=== PATIENT | female | born 1985 | race African-American/Black ===

== ENCOUNTER 2017-03-14 03:12 | Emergency (ER) | payer SELFPAY ==
[2017-03-14] MEDS ORDERED: IPRATROPIUM/ALBUTEROL 0.5-2.5 MG/3 ML AMPUL NEB ONE (03:35)
[2017-03-14] MEDS ORDERED: PREDNISONE 20 MG TABLET PO ONE (03:35)
--- NOTE | 2017-03-14 04:28 | RADIOLOGY REPORT (SQ) ---
EXAM DESCRIPTION: CHEST PA/LAT CLINICAL HISTORY: 31 years, Female, sob COMPARISON: 05/06/2015. NUMBER OF VIEWS: 2 FINDINGS: Adequate lung volumes, clear parenchyma, normal cardiac silhouette, and intact bony thorax. IMPRESSION: Normal chest radiographs. 2011 [employer]- All Rights Reserved
[2017-03-14] MEDS ORDERED: ALBUTEROL SULFATE HFA (90 MCG/PUFF) 8 GM MDI (1 MDI/ER DISP) IH ONE (04:39)
--- NOTE | 2017-03-14 04:42 | ER Document Report ---
ED General - General Chief Complaint: Shortness Of Breath Stated Complaint: HARD TIME BREATHING Time Seen by Provider: 03/14/17 03:34 TRAVEL OUTSIDE OF THE [place] IN LAST 30 DAYS: No - HPI Patient complains to provider of: Shortness of breath Notes: Patient coming in for shortness of breath. Patient states ongoing for the last few days. Patient states she is a smoker and continues to smoke. Denies any recent travel denies any fever chills nausea vomiting diarrhea. Patient states she is currently not this time is not taking any control. Patient is resting comfortably upon my evaluation. - Related Data Allergies/Adverse Reactions: No Known Allergies Allergy (Verified 01/03/16 11:56) Past Medical History - Social History Smoking Status: Current Every Day Smoker Chew tobacco use (# tins/day): No Frequency of alcohol use: None Drug Abuse: None Family History: DM, Hyperlipidemia, Hypertension, Malignancy Patient has suicidal ideation: No Patient has homicidal ideation: No Pulmonary Medical History: Reports: Hx Asthma Renal/ Medical History: Reports: Hx Ovarian Cysts. Denies: Hx Peritoneal Dialysis GI Medical History: Reports: Hx Gastroesophageal Reflux Disease - Immunizations Immunizations up to date: Yes Hx Diphtheria, Pertussis, Tetanus Vaccination: Yes Review of Systems - Review of Systems Constitutional: No symptoms reported EENT: No symptoms reported Cardiovascular: No symptoms reported Respiratory: Short of breath Gastrointestinal: No symptoms reported Genitourinary: No symptoms reported Female Genitourinary: No symptoms reported Musculoskeletal: No symptoms reported Skin: No symptoms reported Hematologic/Lymphatic: No symptoms reported Neurological/Psychological: No symptoms reported -: Yes All other systems reviewed and negative Physical Exam - Vital signs Vitals: Temp Pulse Resp BP Pulse Ox 98.2 F 86 26 H 137/77 H 96 03/14/17 03:15 03/14/17 03:15 03/14/17 03:15 03/14/17 03:15 03/14/17 03:15 Interpretation: Normal - General General appearance: Appears well, Alert - HEENT Head: Normocephalic, Atraumatic Eyes: Normal Pupils: PERRL - Respiratory Respiratory status: No respiratory distress Chest status: Nontender Breath sounds: Rhonchi, Wheezing Chest palpation: Normal - Cardiovascular Rhythm: Regular Heart sounds: Normal auscultation Murmur: No - Abdominal Inspection: Normal Distension: No distension Bowel sounds: Normal Tenderness: Nontender Organomegaly: No organomegaly - Back Back: Normal, Nontender - Extremities General upper extremity: Normal inspection, Nontender, Normal color, Normal ROM , Normal temperature General lower extremity: Normal inspection, Nontender, Normal color, Normal ROM , Normal temperature, Normal weight bearing. No: Elizabeth's sign - Neurological Neuro grossly intact: Yes Cognition: Normal Orientation: AAOx4 Voss Coma Scale Eye Opening: Spontaneous Voss Coma Scale Verbal: Oriented Davon Coma Scale Motor: Obeys Commands Davon Coma Scale Total: 15 Speech: Normal Motor strength normal: LUE, RUE, LLE, RLE Sensory: Normal - Psychological Associated symptoms: Normal affect, Normal mood - Skin Skin Temperature: Warm Skin Moisture: Dry Skin Color: Normal Course - Re-evaluation Re-evalutation: 03/14/17 05:22 Examination consistent with bronchitis. Patient symptoms improved after rhonchi dilators. Patient will be discharged on follow-up primary care physician. Will discharge patient home with albuterol inhaler and prednisone for the next few days. Chest x-ray negative - Vital Signs Vital signs: Temp Pulse Resp BP Pulse Ox 98.2 F 86 20 133/88 H 96 03/14/17 03:15 03/14/17 03:15 03/14/17 03:44 03/14/17 03:44 03/14/17 04:00 Discharge - Discharge Clinical Impression: Bronchitis Condition: Good Disposition: HOME, SELF-CARE Instructions: Bronchitis With Bronchospasm (Wheezing) ([facility]) Additional Instructions: Your chest x-ray today does not show any signs of pneumonia. More likely have underlying bronchitis or inflammation of the airways. Please stop smoking take medications as prescribed return to the ER symptoms worsen. Please use the inhaler that we gave you here in ER 2 puffs every 4 hours for the next 5 days then as needed for shortness of breath Prescriptions: Prednisone [Deltasone 20 mg Tablet] 3 tab PO DAILY 5 Days tablet Forms: Smoking Cessation Education
[2017-03-14 04:54] VITALS: BP 111/75
== END 2017-03-14 04:44 | disposition home or self-care (01) ==
LOC: ER 03:12
DX: J45.909 Unspecified asthma, uncomplicated (principal); R06.02 Shortness of breath; F17.200 Nicotine dependence, unspecified, uncomplicated
CPT/HCPCS: 94640; 99285; 71020; J7512; J3490; J7620

== ENCOUNTER 2017-04-20 20:21 | Emergency (ER) | payer OTHER ==
--- NOTE | 2017-04-20 20:55 | ER Document Report ---
ED Medical Screen (RME) - General Chief Complaint: Chest Pain Stated Complaint: CHEST PAINS Time Seen by Provider: 04/20/17 20:54 Notes: Patient states she has right-sided chest pain for approximately 2 weeks. She states she may have injured it at work moving an object. TRAVEL OUTSIDE OF THE [place] IN LAST 30 DAYS: No - Related Data Allergies/Adverse Reactions: No Known Allergies Allergy (Verified 04/20/17 20:37) Home Medications: Current Home Medications No Home Medications 04/20/17 [History] Past Medical History - Social History Family history: Arthritis, CVA, DM, Hyperlipidemia, Hypertension, Malignancy, Other - Sleep apnea Pulmonary Medical History: Reports: Hx Asthma Renal/ Medical History: Reports: Hx Ovarian Cysts. Denies: Hx Peritoneal Dialysis GI Medical History: Reports: Hx Gastroesophageal Reflux Disease - Immunizations Immunizations up to date: Yes Hx Diphtheria, Pertussis, Tetanus Vaccination: Yes Physical Exam - Vital signs Vitals: Temp Pulse Resp BP Pulse Ox 98.5 F 76 14 121/69 97 04/20/17 20:43 04/20/17 20:43 04/20/17 20:43 04/20/17 20:43 04/20/17 20:43 Course - Vital Signs Vital signs: Temp Pulse Resp BP Pulse Ox 98.5 F 76 14 121/69 97 04/20/17 20:43 04/20/17 20:43 04/20/17 20:43 04/20/17 20:43 04/20/17 20:43
[2017-04-20 21:28] LABS: ABSOLUTE BASOPHILS # (AUTO) 0.1 10^3/uL (0.0-0.2); ABSOLUTE EOSINOPHILS # (AUTO) 0.3 10^3/uL (0.0-0.6); ABSOLUTE LYMPHOCYTES (AUTO) 4.2 10^3/uL (0.5-4.7); ABSOLUTE MONOCYTES (AUTO) 0.9 10^3/uL (0.1-1.4); ABSOLUTE NEUT (AUTO) 3.9 10^3/uL (1.7-8.2); BASOPHILS % (AUTO) 1.2 % (0-2); EOSINOPHILS % (AUTO) 2.9 % (0-6); HEMATOCRIT 39.9 % (36.0-47.0); HEMOGLOBIN 14.2 g/dL (12.0-15.5); LYMPHOCYTES % (AUTO) 44.6 % (13-45); MEAN CORPUSCULAR HEMOGLOBIN 29.1 pg (27.0-33.4); MEAN CORPUSCULAR HGB CONC 35.6 g/dL (32.0-36.0); MEAN CORPUSCULAR VOLUME 82 fl (80-97); MONOCYTES % (AUTO) 9.2 % (3-13); PLATELET COUNT 258 10^3/uL (150-450); RED BLOOD COUNT 4.89 10^6/uL (3.72-5.28); RED CELL DISTRIBUTION WIDTH 13.8 % (11.5-14.0); SEGMENTED NEUTROPHILS % (AUTO) 42.1 % (42-78); TOTAL CELLS COUNTED % (AUTO) 100 %; WHITE BLOOD COUNT 9.3 10^3/uL (4.0-10.5)
[2017-04-20 21:31] LABS: APPEARANCE,URINE SLIGHTLY-CLOUDY; BILIRUBIN,URINE NEGATIVE (NEGATIVE); COLOR,URINE YELLOW; GLUCOSE, URINE NEGATIVE (NEGATIVE); KETONES,URINE NEGATIVE (NEGATIVE); LEUKOCYTE ESTERASE,URINE NEGATIVE (NEGATIVE); NITRITE,URINE NEGATIVE (NEGATIVE); PROTEIN,URINE NEGATIVE (NEGATIVE); URINE SPECIFIC GRAVITY 1.032
[2017-04-20 21:44] LABS: ALANINE AMINOTRANSFERASE 34 U/L (9-52); ALBUMIN 4.2 g/dL (3.5-5.0); ALKALINE PHOSPHATASE 82 U/L (38-126); ANION GAP 9 (5-19); ASPARTATE AMINO TRANSFERASE 22 U/L (14-36); BILIRUBIN,DIRECT 0.2 mg/dL (0.0-0.4); BILIRUBIN,TOTAL 0.2 mg/dL (0.2-1.3); BLOOD UREA NITROGEN 15 mg/dL (7-20); CALCIUM 9.9 mg/dL (8.4-10.2); CARBON DIOXIDE 29 mmol/L (22-30); CHLORIDE 106 mmol/L (98-107); GLUCOSE 89 mg/dL (75-110); SODIUM 143.7 mmol/L (137-145); TOTAL PROTEIN 6.9 g/dL (6.3-8.2)
--- NOTE | 2017-04-20 22:33 | ER Document Report ---
ED General - General Chief Complaint: Chest Pain Stated Complaint: CHEST PAINS Time Seen by Provider: 04/20/17 20:54 Notes: Patient is a 31-year-old female presents with complaint of chest pain. She has been there for a few days. She says she first noticed it at work. She says that she does a lot of pulling and pressing at work. She notices that when she lifts herself up to get out of bed that she feels a straining over the muscles over the right upper part of her chest. No pain with breathing. No shortness of breath. No fevers. No history of heart problems. No other complaints at this time. Leg pain or leg swelling. TRAVEL OUTSIDE OF THE [place] IN LAST 30 DAYS: No - Related Data Allergies/Adverse Reactions: No Known Allergies Allergy (Verified 04/20/17 20:37) Home Medications: Current Home Medications No Home Medications 04/20/17 [History] Past Medical History - Social History Smoking Status: Current Every Day Smoker Chew tobacco use (# tins/day): No Frequency of alcohol use: None Drug Abuse: Marijuana Family History: DM, Hyperlipidemia, Hypertension, Malignancy Patient has suicidal ideation: No Patient has homicidal ideation: No Pulmonary Medical History: Reports: Hx Asthma, Hx Bronchitis Renal/ Medical History: Reports: Hx Ovarian Cysts. Denies: Hx Peritoneal Dialysis GI Medical History: Reports: Hx Gastroesophageal Reflux Disease - Immunizations Immunizations up to date: Yes Hx Diphtheria, Pertussis, Tetanus Vaccination: Yes Review of Systems - Review of Systems Notes: My Normal Review Basic REVIEW OF SYSTEMS: CONSTITUTIONAL : Denies fever, chills, or sweats. Denies recent illness. EENT: Denies eye, ear, throat, or mouth pain or symptoms. Denies nasal or sinus congestion. CARDIOVASCULAR: Pain over right upper chest. RESPIRATORY: Denies cough, cold, or chest congestion. Denies shortness of breath, difficulty breathing, or wheezing. GASTROINTESTINAL: Denies abdominal pain. Denies nausea, vomiting, or diarrhea. Denies constipation. Last BM: MUSCULOSKELETAL: Denies neck or back pain or joint pain or swelling. SKIN: Denies rash or skin lesions. NEUROLOGICAL: Denies altered mental status or loss of consciousness. Denies headache. Denies weakness or paralysis or loss of use of either side. Denies problems with gait or speech. Denies sensory or motor loss. ALL OTHER SYSTEMS REVIEWED AND NEGATIVE. Physical Exam - Vital signs Vitals: Temp Pulse Resp BP Pulse Ox 98.5 F 76 14 121/69 97 04/20/17 20:43 04/20/17 20:43 04/20/17 20:43 04/20/17 20:43 04/20/17 20:43 - Notes Notes: General Appearance: Well nourished, alert, cooperative, no acute distress, no obvious discomfort. Well-appearing. Vitals: reviewed, See vital signs table. Chest wall: Some pain to palpation over the right upper chest. Pain is reproducible when she tries to sit up off the bed or push herself off the bed. Lungs: No wheezing, No rales, No rhonci, No accessory muscle use, good air exchange bilaterally. Heart: Normal rate, Regular rythm, No murmur, no rub Abdomen: Normal BS, soft, No rigidity, No abdominal tenderness, No guarding, no rebound, Extremities: good pulses in all extremities, no swelling in the extremities, no edema. Skin: warm, dry, appropriate color, no rash Neuro: speech clear, oriented x 3, normal affect, responds appropriately to questions. Course - Re-evaluation Re-evalutation: 04/21/17 06:12 Cardiac enzymes were ordered in triage. They are negative. On exam patient's pain seems very muscular skeletal. It seems reproducible palpation and also with movement or pushing against the bed. I feel she is safe to be discharged home. I strongly encouraged her return to ER if she has worsening pain, difficulty breathing, fevers, or feels unwell. Patient agrees with plan will be discharged home. Dictation of this chart was performed using voice recognition software; therefore, there may be some unintended grammatical errors. - Vital Signs Vital signs: Temp Pulse Resp BP Pulse Ox 98.6 F 62 16 126/79 H 98 04/21/17 00:02 04/21/17 00:02 04/21/17 00:02 04/21/17 00:02 04/21/17 00:02 - Laboratory Result Diagrams: 04/20/17 21:00 04/20/17 21:00 Laboratory results interpreted by me: 04/20/17 21:00 Urine Urobilinogen 2.0 H - EKG Interpretation by Me Additional EKG results interpreted by me: 04/20/17 22:32 EKG is reviewed and interpreted by me. EKG shows normal sinus rhythm with rate of [address] segment elevation or depression. No ischemic T-wave inversions. Pure interval, QRS duration, QTc intervals are within normal range. Old EKG for comparison is from May 19, 2013. Discharge - Discharge Clinical Impression: Chest pain Qualifiers: Chest pain type: unspecified Qualified Code(s): R07.9 - Chest pain, unspecified Condition: Good Disposition: HOME, SELF-CARE Additional Instructions: Your blood work and chest xray are normal. Your EKG is normal. I suspect your chest pain is related to a muscle strain in your chest. Take Tylenol or Ibuprofen for pain. Please return to the ER immediately if you develop worsening pain, fevers, or difficulty breathing. Forms: Return to Work Referrals: VIRGIE MILTON MD [Primary Care Provider] - 04/21/17
[2017-04-21 00:11] VITALS: BP 126/79
--- NOTE | 2017-04-21 00:19 | RADIOLOGY REPORT (SQ) ---
EXAM DESCRIPTION: CHEST SINGLE VIEW CLINICAL HISTORY: 31 years, Female, chest pain COMPARISON: 03/14/2017. LIMITATIONS: None. FINDINGS: Normal lung volume, clear parenchyma, normal cardiac silhouette, and intact bony thorax. IMPRESSION: No acute cardiopulmonary findings. 2011 [employer]- All Rights Reserved
--- NOTE | 2017-04-21 09:46 | EKG REPORT ---
SEVERITY:- BORDERLINE ECG - SINUS RHYTHM PROBABLE LEFT ATRIAL ABNORMALITY : Confirmed by: Ann Marie Tinajero 21-Apr-2017 09:45:49
== END 2017-04-21 00:03 | disposition home or self-care (01) ==
LOC: ER 20:21
DX: R07.9 Chest pain, unspecified (principal); J45.909 Unspecified asthma, uncomplicated; F12.10 Cannabis abuse, uncomplicated; F17.200 Nicotine dependence, unspecified, uncomplicated
CPT/HCPCS: 36415; 71045; 80053; 81001; 81025; 84484; 85025; 93005; 93010; 99285

== ENCOUNTER 2017-04-26 10:25 | Emergency (ER) | payer SELFPAY ==
--- NOTE | 2017-04-26 10:56 | ER Document Report ---
HPI - HPI Patient complains to provider of: Cough Onset: Other - Pain Level: 4 Context: 31-year-old smoker female started with a cough and saw [facility] on and was started on Tamiflu and prednisone. She does have a Ventolin inhaler that she has not been using. She is concerned and wants to make sure she does not have pneumonia. No fever today. No chest pain or shortness of breath. She also wants to know what can she take for pain since she is taking prednisone. Associated Symptoms: None Exacerbated by: Denies Relieved by: Denies Similar symptoms previously: Yes Recently seen / treated by doctor: Yes - ROS ROS below otherwise negative: Yes Systems Reviewed and Negative: Yes All other systems reviewed and negative - REPRODUCTIVE Reproductive: DENIES: : Past Medical History - General Information source: Patient - Social History Smoking Status: Current Every Day Smoker Frequency of alcohol use: None Drug Abuse: None Lives with: Spouse/Significant other Family History: DM, Hyperlipidemia, Hypertension, Malignancy Pulmonary Medical History: Reports: Hx Asthma, Hx Bronchitis Renal/ Medical History: Reports: Hx Ovarian Cysts. Denies: Hx Peritoneal Dialysis GI Medical History: Reports: Hx Gastroesophageal Reflux Disease Surgical Hx: Negative - Immunizations Immunizations up to date: Yes Hx Diphtheria, Pertussis, Tetanus Vaccination: Yes Vertical Provider Document - CONSTITUTIONAL Agree With Documented VS: Yes Exam Limitations: No Limitations General Appearance: No Apparent Distress - INFECTION CONTROL TRAVEL OUTSIDE OF THE [place] IN LAST 30 DAYS: No - HEENT HEENT: Pharyngeal Erythema. negative: Conjuctival Injection, Tympanic Membrane Red - NECK Neck: Supple. negative: Lymphadenopathy-Left, Lymphadenopathy-Right - RESPIRATORY Respiratory: Breath Sounds Normal, No Respiratory Distress O2 Sat by Pulse Oximetry: 95 - CARDIOVASCULAR Cardiovascular: Regular Rate, Regular Rhythm - MUSCULOSKELETAL/EXTREMETIES Musculoskeletal/Extremeties: MAEW - NEURO Level of Consciousness: Awake, Alert - DERM Integumentary: Warm, Dry Course - Vital Signs Vital signs: Temp Pulse Resp BP Pulse Ox 98.3 F 77 16 114/78 95 04/26/17 10:38 04/26/17 10:38 04/26/17 10:38 04/26/17 10:38 04/26/17 10:38 Discharge - Discharge Clinical Impression: Cough Condition: Good Disposition: HOME, SELF-CARE Instructions: Influenza ([facility]) [id number] Additional Instructions: use your inhaler (ventolin) for the cough, and help get the muous out, 2 puffs every 3 hours may take tylenol for the pain continue the Tamiflu and prednisone. Return to the emergency room if worse Referrals: LATASHA LOPEZ PA-C [Primary Care Provider] - Follow up as needed
[2017-04-26 12:27] VITALS: BP 114/65
== END 2017-04-26 12:30 | disposition home or self-care (01) ==
LOC: ER 10:25
DX: R05 Cough (principal); J45.909 Unspecified asthma, uncomplicated; F17.200 Nicotine dependence, unspecified, uncomplicated
CPT/HCPCS: 99283

== ENCOUNTER 2017-04-29 14:22 | Emergency (ER) | payer SELFPAY ==
[2017-04-29 14:33] VITALS: BP 118/73
== END 2017-04-29 14:50 | disposition left against medical advice (07) ==
LOC: ER 14:22
DX: Z53.21 Procedure and treatment not carried out due to patient leaving prior to being seen by health care provider (principal)

== ENCOUNTER 2017-04-30 01:27 | Emergency (ER) | payer SELFPAY ==
--- NOTE | 2017-04-30 04:33 | RADIOLOGY REPORT (SQ) ---
EXAM DESCRIPTION: CHEST PA/LAT CLINICAL HISTORY: cough COMPARISON: 04/20/2017 FINDINGS: Frontal and lateral views of the chest. The cardiomediastinal silhouette has normal size and contour. No consolidation, pneumothorax, or pleural effusion. No displaced rib fractures identified. Upper abdominal soft tissues are unremarkable. IMPRESSION: 1. No acute pulmonary process identified.
--- NOTE | 2017-04-30 05:33 | ER Document Report ---
ED General - General Chief Complaint: Breathing Difficulty Stated Complaint: TROUBLE BREATHING Time Seen by Provider: 04/30/17 04:01 Notes: Patient is a 31-year-old female who presents with complaint she has a sore throat had a cough. Patient says about a week ago she was seen by her primary care doctor. She was tested for flu but the flu was negative. She says that despite her chest pain negative she was placed on Tamiflu. She says she then went back she still had a cough. She says she had a chest x-ray performed and she was told that the thought they might see a small something in her lungs that could be developing pneumonia and therefore she was placed on a Z-Justo. Patient says she still has a scratchy throat and feels as if she is still sick and not completely better and therefore is come to ER. No fevers in the last 48 hours. No vomiting. No wheezing. No other complaints at this time. TRAVEL OUTSIDE OF THE [place] IN LAST 30 DAYS: No - Related Data Allergies/Adverse Reactions: No Known Allergies Allergy (Verified 04/29/17 14:23) Past Medical History - Social History Smoking Status: Never Smoker Frequency of alcohol use: None Drug Abuse: None Family History: DM, Hyperlipidemia, Hypertension, Malignancy Patient has suicidal ideation: No Patient has homicidal ideation: No Pulmonary Medical History: Reports: Hx Asthma, Hx Bronchitis, Hx Pneumonia Renal/ Medical History: Reports: Hx Ovarian Cysts. Denies: Hx Peritoneal Dialysis GI Medical History: Reports: Hx Gastroesophageal Reflux Disease - Immunizations Immunizations up to date: Yes Hx Diphtheria, Pertussis, Tetanus Vaccination: Yes Review of Systems - Review of Systems Notes: My Normal Review Basic REVIEW OF SYSTEMS: CONSTITUTIONAL : Recent URI type symptoms. EENT: Sore throat. Left ear pain. CARDIOVASCULAR: Denies chest pain. RESPIRATORY: Cough GASTROINTESTINAL: Denies abdominal pain. Denies nausea, vomiting, or diarrhea. Denies constipation. Last BM: MUSCULOSKELETAL: Denies neck or back pain or joint pain or swelling. SKIN: Denies rash or skin lesions. NEUROLOGICAL: Denies altered mental status or loss of consciousness. Denies headache. Denies weakness or paralysis or loss of use of either side. Denies problems with gait or speech. Denies sensory or motor loss. ALL OTHER SYSTEMS REVIEWED AND NEGATIVE. Physical Exam - Vital signs Vitals: Temp Pulse Resp BP Pulse Ox 98.1 F 66 20 120/67 98 04/30/17 01:43 04/30/17 01:43 04/30/17 01:43 04/30/17 01:43 04/30/17 01:43 - Notes Notes: General Appearance: Well nourished, alert, cooperative, no acute distress, no obvious discomfort. Well-appearing. Vitals: reviewed, See vital signs table. Head: no swelling or tenderness to the head Eyes: PERRL, EOMI, Conjuctiva clear Mouth: No decreasd moisture Throat: No tonsillar inflammation, No airway obstruction, No lymphadenopathy Ears: Normal-appearing tympanic membranes bilaterally. Neck: Supple, no neck tenderness, No thyromegaly Lungs: No wheezing, No rales, No rhonci, No accessory muscle use, good air exchange bilaterally. Heart: Normal rate, Regular rythm, No murmur, no rub Extremities: good pulses in all extremities,, no edema. Skin: warm, dry, appropriate color, no rash Neuro: speech clear, oriented x 3, normal affect, responds appropriately to questions. Course - Re-evaluation Re-evalutation: 04/30/17 07:05 Patient looks very well. I explained to her about eustachian tube dysfunction of the sometimes can lead to pain in pressure behind the ear association with sore throat. Informed that she most likely has a viral illness. Chest x-ray here was negative. She now has 2 doses of azithromycin left. I informed her that there is possibility that she may have had a early pneumonia now that has cleared on x-ray. I told her that do not have access to previous chest x-ray sure cannot tell her for sure. Informed her she should just go ahead and finish out her course of antibiotic. Encouraged her return to ER if she has worsening of her symptoms, difficulty breathing, high fevers, or feels unwell. Patient agrees with plan and will be discharged home. Dictation of this chart was performed using voice recognition software; therefore, there may be some unintended grammatical errors. - Vital Signs Vital signs: Temp Pulse Resp BP Pulse Ox 98.1 F 73 20 123/76 99 04/30/17 05:45 04/30/17 05:45 04/30/17 05:45 04/30/17 05:45 04/30/17 05:45 Discharge - Discharge Clinical Impression: URI (upper respiratory infection) Qualifiers: URI type: unspecified URI Qualified Code(s): J06.9 - Acute upper respiratory infection, unspecified Condition: Good Disposition: HOME, SELF-CARE Additional Instructions: Please return to the ER immediately if you develop fevers, difficulty breathing , or feel that you are worsening. Please follow up with your doctor early next week for reevaluation. Referrals: VIRGIE MILTON MD [Primary Care Provider] - Follow up in 3-5 days
[2017-04-30 05:46] VITALS: BP 123/76
== END 2017-04-30 05:39 | disposition home or self-care (01) ==
LOC: ER 01:27
DX: J06.9 Acute upper respiratory infection, unspecified (principal); R06.02 Shortness of breath; J02.9 Acute pharyngitis, unspecified; R05 Cough
CPT/HCPCS: 71046; 99285

== ENCOUNTER 2017-05-03 06:18 | Emergency (ER) | payer SELFPAY ==
[2017-05-03] MEDS ORDERED: LIDOCAINE 5% (700 MG) TRANSDERMAL ADH..PATCH TP ONE (07:23)
--- NOTE | 2017-05-03 07:23 | ER Document Report ---
HPI - HPI Pain Level: 4 Notes: Patient is a 31-year-old female who presents to the ED complaining of continued chest wall pain and feeling constipated over the last week. Patient states that she has been evaluated here for the chest pain recently, and that her pain has been ongoing over the last 2 weeks with some improvement on occasion. She had a negative work up at that time. The pain does not radiate and is not worsened with ambulation or exercise otherwise. Patient has not been doing anything for her discomfort. Patient does a lot of lifting pulling and pushing when she is working. Patient states that upper extremity movements make the pain worse. She denies any significant cardiac history. She denies any prolonged immobilization, recent trauma/surgery, cancer, hormone replacement, previous DVT/PE. Patient does admit to smoking but denies any IV drug use. She denies any drug allergies. Patient states that her bowels have been small and hard lately with the last bowel movement less than 12 hours ago. Patient states that she is still passing gas. Patient is not on any stool softeners. Patient is still eating and drinking without any difficulties. She is urinating normally and having normal bowel movements. Denies any headache, fever, neck pain, URI, sore throat, palpitations, syncope, cough, shortness of breath, wheeze, dyspnea, abdominal pain, nausea/vomiting/diarrhea, urinary retention, dysuria, hematuria, loss of control of bowel or bladder, numbness/ tingling, saddle anesthesia, muscle paralysis/weakness, or rash. - ROS Systems Reviewed and Negative: Yes All other systems reviewed and negative - REPRODUCTIVE Reproductive: DENIES: : - DERM Skin Color: Normal, [place] Past Medical History - Social History Smoking Status: Current Every Day Smoker Chew tobacco use (# tins/day): No Frequency of alcohol use: None Drug Abuse: None Family History: DM, Hyperlipidemia, Hypertension, Malignancy Patient has suicidal ideation: No Patient has homicidal ideation: No Pulmonary Medical History: Reports: Hx Asthma, Hx Bronchitis, Hx Pneumonia Renal/ Medical History: Reports: Hx Ovarian Cysts. Denies: Hx Peritoneal Dialysis GI Medical History: Reports: Hx Gastroesophageal Reflux Disease - Immunizations Immunizations up to date: Yes Hx Diphtheria, Pertussis, Tetanus Vaccination: Yes Vertical Provider Document - CONSTITUTIONAL Agree With Documented VS: Yes Notes: PHYSICAL EXAMINATION: GENERAL: Well-appearing, well-nourished and in no acute distress. HEAD: Atraumatic, normocephalic. EYES: Pupils equal round and reactive to light, extraocular movements intact, sclera anicteric, conjunctiva are normal. ENT: Nares patent and without discharge. oropharynx clear without exudates. No tonsilar hypertrophy or erythema. Moist mucous membranes. NECK: Normal range of motion, supple without lymphadenopathy Chest: equal rise/fall. + moderate tenderness to the left sternal border, correlates with pain described. No flail chest, ecchymosis, step-offs, or erythema. LUNGS: Breath sounds clear to auscultation bilaterally and equal. No wheezes rales or rhonchi. HEART: Regular rate and rhythm without murmurs, rubs, gallops. ABDOMEN: Soft, nontender, nondistended abdomen. No guarding, no rebound. No masses appreciated. Normal bowel sounds present. No CVA tenderness bilaterally. Musculoskeletal: FROM to passive/active. Strength 5+/5. Elizabeth neg. Calves soft without swelling/erythema. Extremities: No cyanosis, clubbing, or edema b/l. Peripheral pulses 2+. Capillary refill less than 3 seconds. NEUROLOGICAL: Cranial nerves grossly intact. Normal speech, normal gait. Normal sensory, motor exams PSYCH: Normal mood, normal affect. SKIN: Warm, Dry, normal turgor, no rashes or lesions noted. - INFECTION CONTROL TRAVEL OUTSIDE OF THE [place] IN LAST 30 DAYS: No - RESPIRATORY O2 Sat by Pulse Oximetry: 97 Course - Re-evaluation Re-evalutation: 05/03/17 09:05 Patient is an afebrile, well-hydrated, 31-year-old female who presents to the ED with chest wall pain, suspect benign as well as suspect constipation. Vitals are stable. PE is otherwise unremarkable aside from reproducible chest wall pain. EKG and chest x-ray are unremarkable for any acute pathology. No other labs or imaging warranted at this time based on H&P. Patient is still passing gas and having bowel movements, but notes that she has been more constipated. Patient is not having any abdominal pain and no melena/ hematochezia. Low suspicion for any ACS, PE, pneumothorax, pericarditis, dissection, respiratory compromise, severe dehydration, sepsis, meningitis, acute abdomen, or other systemic emergent condition at this time. Patient is aware that her condition can change from initial presentation and she needs to monitor symptoms closely and seek medical attention for any acute changes. Lidoderm patch was applied today and improved her pain felt the left for. I will send her home with a prescription for naproxen, lidoderm patch, as well as mag citrate. Recommend conservative measures for symptoms. Recheck with your PCM in 3-5 days. Return to the ED with any worsening/concerning symptoms otherwise as reviewed in discharge. Patient is in agreement. - Vital Signs Vital signs: Temp Pulse Resp BP Pulse Ox 98.2 F 82 16 124/80 97 05/03/17 06:36 05/03/17 06:36 05/03/17 06:36 05/03/17 06:36 05/03/17 06:36 Discharge - Discharge Clinical Impression: Chest wall pain Constipation Qualifiers: Constipation type: unspecified constipation type Qualified Code(s): K59.00 - Constipation, unspecified Condition: Stable Disposition: HOME, SELF-CARE Instructions: Chest Wall Pain ([facility]), Constipation ([facility]) Additional Instructions: Rest, Ice, Compression, Elevation Stool softener daily- maintain adequate water/fiber intake. Tylenol/ibuprofen as needed Light stretches daily Strength exercises as able Moist heat and massage may help F/u with your PCP in 3-5 days for a recheck Consider consult(s) with Orthopedics/physical therapy/Gastroenterology for ongoing/worsening symptoms Return to the ED with any worsening symptoms and/or development of fever, headache, chest pain, palpitations, syncope, shortness of breath, trouble breathing, abdominal pain, n/v/d, muscle weakness/paralysis, numbness/tingling, swelling, redness, or other worsening symptoms that are concerning to you. Prescriptions: Lidocaine [Lidoderm] 1 each TP DAILY #30 adh..patch Magnesium Citrate [Citrate of Magnesia 296 ml Bottle] 296 ml PO ONCE PRN #1 bottle PRN Reason: Naproxen 500 mg PO BID PRN #30 tablet PRN Reason: Forms: Smoking Cessation Education Referrals: BILL MERRITT MD [ACTIVE STAFF] - Follow up as needed [facility] [Provider Group] - Follow up as needed
--- NOTE | 2017-05-03 07:46 | RADIOLOGY REPORT (SQ) ---
EXAM DESCRIPTION: CHEST PA/LAT COMPLETED DATE/TIME: 05/03/2017 7:37 am REASON FOR STUDY: chest wall pain COMPARISON: 04/30/2017 EXAM PARAMETERS: NUMBER OF VIEWS: two views TECHNIQUE: Digital Frontal and Lateral radiographic views of the chest acquired. RADIATION DOSE: NA LIMITATIONS: none FINDINGS: LUNGS AND PLEURA: No opacities, masses or pneumothorax. No pleural effusion. MEDIASTINUM AND HILAR STRUCTURES: No masses or contour abnormalities. HEART AND VASCULAR STRUCTURES: Heart normal size. No evidence for failure. BONES: No acute findings. HARDWARE: None in the chest. OTHER: No other significant finding. IMPRESSION: NO SIGNIFICANT RADIOGRAPHIC FINDING IN THE CHEST. TECHNICAL DOCUMENTATION: JOB ID: [id number] 2010 [employer]- All Rights Reserved
[2017-05-03 09:12] VITALS: BP 109/65
--- NOTE | 2017-05-03 11:55 | EKG REPORT ---
SEVERITY:- NORMAL ECG - SINUS RHYTHM : Confirmed by: Catrachita Bailey MD 03-May-2017 11:54:53
== END 2017-05-03 09:12 | disposition home or self-care (01) ==
LOC: ER 06:18
DX: R07.89 Other chest pain (principal); K59.00 Constipation, unspecified; F17.200 Nicotine dependence, unspecified, uncomplicated; J45.909 Unspecified asthma, uncomplicated
CPT/HCPCS: 71046; 93005; 93010; 99284

== ENCOUNTER 2017-05-07 01:42 | Emergency (ER) | payer OTHER ==
[2017-05-07] MEDS ORDERED: MAGNESIUM CITRATE 296 ML BOTTLE PO ONE (03:06)
--- NOTE | 2017-05-07 04:41 | RADIOLOGY REPORT (SQ) ---
EXAM DESCRIPTION: KUB/ABDOMEN (SINGLE VIEW) COMPLETED DATE/TIME: 05/07/2017 4:25 am REASON FOR STUDY: constipation, abd pain COMPARISON: KUB 05/09/2012 NUMBER OF VIEWS: One view. TECHNIQUE: 2 supine radiographic images of the abdomen acquired. LIMITATIONS: None. FINDINGS: BOWEL GAS PATTERN: No dilated bowel loops. Moderate amount of stool at the right-sided co elyssa. CALCIFICATIONS: Small calcifications at the pelvis, may represent phleboliths. SOFT TISSUES: No gross mass or suggestion of organomegaly. HARDWARE: None in the abdomen. BONES: No acute findings. IMPRESSION: Nonobstructive bowel gas pattern. Moderate amount of stool at the right-sided colon. TECHNICAL DOCUMENTATION: JOB ID: [id number] 2010 [employer]- All Rights Reserved
--- NOTE | 2017-05-07 04:45 | ER Document Report ---
ED GI/ - General Chief Complaint: Constipation Stated Complaint: CONSTIPATION Time Seen by Provider: 05/07/17 02:54 Mode of Arrival: Ambulatory Information source: Patient Notes: Patient is a 31-year-old female who presents to the ER today for abdominal discomfort and constipation. Patient states her last bowel movement was 3-4 days ago and that she has been trying Senokot [id number] without relief. Patient states this is not usual for her. She states that she was just on azithromycin and she thinks that it may have caused the constipation. She is no longer taking it. TRAVEL OUTSIDE OF THE [place] IN LAST 30 DAYS: No - Related Data Allergies/Adverse Reactions: No Known Allergies Allergy (Verified 05/03/17 06:36) Past Medical History - General Information source: Patient - Social History Smoking Status: Current Every Day Smoker Frequency of alcohol use: None Family History: DM, Hyperlipidemia, Hypertension, Malignancy Patient has suicidal ideation: No Patient has homicidal ideation: No Pulmonary Medical History: Reports: Hx Asthma, Hx Bronchitis, Hx Pneumonia Renal/ Medical History: Reports: Hx Ovarian Cysts. Denies: Hx Peritoneal Dialysis GI Medical History: Reports: Hx Gastroesophageal Reflux Disease - Immunizations Immunizations up to date: Yes Hx Diphtheria, Pertussis, Tetanus Vaccination: Yes Review of Systems - Review of Systems Constitutional: No symptoms reported EENT: No symptoms reported Cardiovascular: No symptoms reported Respiratory: No symptoms reported Gastrointestinal: See HPI Genitourinary: No symptoms reported Female Genitourinary: No symptoms reported Musculoskeletal: No symptoms reported Skin: No symptoms reported Hematologic/Lymphatic: No symptoms reported Neurological/Psychological: No symptoms reported Physical Exam - Vital signs Vitals: Temp Pulse Resp BP Pulse Ox 97.7 F 80 18 123/76 97 05/07/17 01:48 05/07/17 01:48 05/07/17 01:48 05/07/17 01:48 05/07/17 01:48 - Notes Notes: PHYSICAL EXAMINATION: GENERAL: Well-appearing and in no acute distress. HEAD: Atraumatic, normocephalic. EYES: Pupils equal round and reactive to light, extraocular movements intact, sclera anicteric, conjunctiva are normal. NECK: Normal range of motion, supple without lymphadenopathy LUNGS: CTAB and equal. No wheezes rales or rhonchi. HEART: Regular rate and rhythm without murmurs ABDOMEN: Soft, mild diffuse tenderness. No guarding, no rebound BACK: no vertebral tenderness, normal ROM GI/: no CVA tenderness EXTREMITIES: Normal range of motion, no pitting edema. No cyanosis. NEUROLOGICAL: Cranial nerves grossly intact. Normal sensory/motor exams. PSYCH: Normal mood, normal affect. SKIN: Warm, Dry, normal turgor, no rashes or lesions noted Course - Re-evaluation Re-evalutation: 05/07/17 04:43 X-ray reports moderate stool in the right side of the colon, patient given magnesium citrate and will be sent home with MiraLAX prescription. - Vital Signs Vital signs: Temp Pulse Resp BP Pulse Ox 97.7 F 80 18 123/76 97 05/07/17 01:48 05/07/17 01:48 05/07/17 01:48 05/07/17 01:48 05/07/17 01:48 Discharge - Discharge Clinical Impression: Constipation Qualifiers: Constipation type: unspecified constipation type Qualified Code(s): K59.00 - Constipation, unspecified Condition: Stable Disposition: HOME, SELF-CARE Instructions: Constipation ([facility]), Laxative ([facility]) Additional Instructions: Return immediately for any new or worsening symptoms. Follow up with primary care provider, call tomorrow to make followup appointment. Prescriptions: Polyethylene Glycol 3350 [Miralax] 1 cap PO DAILY #527 powder Forms: Return to Work
[2017-05-07 05:04] VITALS: BP 114/57
== END 2017-05-07 05:04 | disposition home or self-care (01) ==
LOC: ER 01:42
DX: K59.00 Constipation, unspecified (principal); R10.9 Unspecified abdominal pain; F17.200 Nicotine dependence, unspecified, uncomplicated
CPT/HCPCS: 99283; 74018; J3490

== ENCOUNTER 2017-05-09 22:43 | Emergency (ER) | payer OTHER ==
[2017-05-09] MEDS ORDERED: HALOPERIDOL 5 MG TABLET PO ONE (23:58)
[2017-05-10] MEDS ORDERED: FLUOXETINE HCL 20 MG CAPSULE PO ONE (01:23)
--- NOTE | 2017-05-10 01:26 | ER Document Report ---
ED General - General Chief Complaint: Anxiety Stated Complaint: CHEST TIGHTNESS/SHAKING Time Seen by Provider: 05/09/17 23:58 Notes: Patient is a 31-year-old female without past medical history who presents with chronic daily anxiety and what she feels to be a panic attack tonight. Patient states that she began thinking about her brother whom she recently saw in front of her eyes. She states that this has been prompting ongoing panic attacks and did so again tonight. She states that she began to breathe quickly , developed diffuse chest wall pain and felt like she was about to . Symptoms gradually improved on their own and have now resolved. She has not seen a psychiatrist but is scheduled to receive a referral next week. She has never been formally diagnosed with any mental health condition. She denies any suicidal homicidal ideation. She denies any physical complaints at this time. TRAVEL OUTSIDE OF THE [place] IN LAST 30 DAYS: No - Related Data Allergies/Adverse Reactions: No Known Allergies Allergy (Verified 05/09/17 22:44) Past Medical History - General Information source: Patient - Social History Smoking Status: Never Smoker Frequency of alcohol use: None Drug Abuse: None Lives with: Spouse/Significant other Family History: DM, Hyperlipidemia, Hypertension, Malignancy Patient has suicidal ideation: No Patient has homicidal ideation: No Pulmonary Medical History: Reports: Hx Asthma, Hx Bronchitis, Hx Pneumonia Renal/ Medical History: Reports: Hx Ovarian Cysts. Denies: Hx Peritoneal Dialysis GI Medical History: Reports: Hx Gastroesophageal Reflux Disease - Immunizations Immunizations up to date: Yes Hx Diphtheria, Pertussis, Tetanus Vaccination: Yes Review of Systems - Review of Systems Notes: Constitutional: Negative for fever. HENT: Negative for sore throat. Eyes: Negative for visual changes. Cardiovascular: Positive for chest pain. Respiratory: Negative for shortness of breath. Gastrointestinal: Negative for abdominal pain, vomiting or diarrhea. Genitourinary: Negative for dysuria. Musculoskeletal: Negative for back pain. Skin: Negative for rash. Neurological: Negative for headaches, weakness or numbness. 10 point ROS negative except as marked above and in HPI. Physical Exam - Vital signs Vitals: Temp Pulse BP Pulse Ox 98.2 F 82 136/78 H 97 05/09/17 22:56 05/09/17 22:56 05/09/17 22:56 05/09/17 22:56 Interpretation: Normal Notes: PHYSICAL EXAMINATION: GENERAL: Well-appearing, well-nourished and in no acute distress. HEAD: Atraumatic, normocephalic. EYES: Pupils equal round and reactive to light, extraocular movements intact, sclera anicteric, conjunctiva are normal. ENT: nares patent, oropharynx clear without exudates. Moist mucous membranes. NECK: Normal range of motion, supple without lymphadenopathy LUNGS: Breath sounds clear to auscultation bilaterally and equal. No wheezes rales or rhonchi. HEART: Regular rate and rhythm without murmurs ABDOMEN: Soft, nontender, normoactive bowel sounds. No guarding, no rebound. No masses appreciated. EXTREMITIES: Normal range of motion, no pitting or edema. No cyanosis. NEUROLOGICAL: No focal neurological deficits. Moves all extremities spontaneously and on command. PSYCH: Normal mood, normal affect. SKIN: Warm, Dry, normal turgor, no rashes or lesions noted. Course - Re-evaluation Re-evalutation: 05/10/17 01:24 Patient presents with history most consistent with an acute panic attack. The patient admits that these are symptoms identical to prior occasions of panic. There was a clear trigger for tonight's episode. Symptoms did resolve after receiving medical therapy here in the emergency department. Vitals otherwise within normal limits. I do not suspect an acute pulmonary embolus, ACS, pneumothorax, or any other acute left threatening pathology based on history and exam. I do not believe any labs or imaging are indicated at this time. At this time will discharge with return precautions and follow-up recommendations. Verbal discharge instructions given a the bedside and opportunity for questions given. Medication warnings reviewed. Patient is in agreement with this plan and has verbalized understanding of return precautions and the need for primary care follow-up in the next 24-72 hours. - Vital Signs Vital signs: Temp Pulse Resp BP Pulse Ox 98.2 F 82 136/78 H 97 05/09/17 22:56 05/09/17 22:56 05/09/17 22:56 05/09/17 22:56 Discharge - Discharge Clinical Impression: Panic attack, Chronic anxiety Condition: Good Disposition: HOME, SELF-CARE Instructions: Anxiety ([facility]) Additional Instructions: You were seen today for a panic attack. Please return if you develop recurrence of your symptoms, thoughts of wanting to harm yourself, or any other symptoms that are concerning to you. Follow-up with your primary doctor or mental health provider regarding today's ED visit. Begin taking fluoxetine as prescribed. Use the Vistaril is been prescribed as needed for severe anxiety. Prescriptions: Hydroxyzine Pamoate [Vistaril 50 mg Capsule] 50 mg PO Q8HP PRN #30 capsule PRN Reason: RX: Fluoxetine HCl 20 mg PO DAILY #30 tablet Referrals: MAXIMUS CINTRON MD [Primary Care Provider] - Follow up as needed
[2017-05-10 02:26] VITALS: BP 135/76
== END 2017-05-10 01:30 | disposition home or self-care (01) ==
LOC: ER 22:43
DX: F41.0 Panic disorder [episodic paroxysmal anxiety] (principal); F41.8 Other specified anxiety disorders
CPT/HCPCS: 99283

== ENCOUNTER 2017-05-16 07:07 | Emergency (ER) | payer OTHER ==
--- NOTE | 2017-05-16 08:00 | ER Document Report ---
HPI - HPI Patient complains to provider of: medication reaction Onset: This morning Onset/Duration: Sudden Pain Level: Denies Context: Patient presents emergency department with questions of possible medication reaction to Zoloft. Patient reports she started taking Zoloft on Thursday 25 mg p.o. daily. She reports recent of brother. Placed on zoloft for depression. She reports she is taking it for 3 days. Last night she had very vivid night terrors. She woke up gasping.. She called the nurse line and was told to come to the emergency department to discuss stopping taking the medication. She denies symptoms now reports no shortness of breath chest pain nausea vomiting diarrhea. She just wants to know if she can stop taking the medication. Associated Symptoms: None Exacerbated by: Denies Relieved by: Denies Similar symptoms previously: Yes Recently seen / treated by doctor: Yes - CONSTITUTIONAL Constitutional: DENIES: Fever, Chills - EENT EENT: DENIES: Sore Throat, Ear Pain, Eye problems - NEURO Neurology: DENIES: Headache, Weakness, Vision blurred, Dizzinesss / Vertigo - CARDIOVASCULAR Cardiovascular: DENIES: Chest pain - RESPIRATORY Respiratory: DENIES: Trouble Breathing, Coughing - GASTROINTESTINAL Gastrointestinal: DENIES: Abdominal Pain, Black / Bloody Stools - URINARY Urinary: DENIES: Dysuria, Urgency, Frequency - REPRODUCTIVE Reproductive: DENIES: :, Postmenopausal, Abnormal bleeding / discharge - MUSCULOSKELETAL Musculoskeletal: DENIES: Extremity pain Past Medical History - General Information source: Patient Last Menstrual Period: irregular - Social History Smoking Status: Never Smoker Chew tobacco use (# tins/day): No Frequency of alcohol use: None Drug Abuse: None Occupation: [employer] Family History: DM, Hyperlipidemia, Hypertension, Malignancy Patient has suicidal ideation: No Patient has homicidal ideation: No Pulmonary Medical History: Reports: Hx Asthma, Hx Bronchitis, Hx Pneumonia Renal/ Medical History: Reports: Hx Ovarian Cysts. Denies: Hx Peritoneal Dialysis GI Medical History: Reports: Hx Gastroesophageal Reflux Disease Surgical Hx: Negative - Immunizations Immunizations up to date: Yes Hx Diphtheria, Pertussis, Tetanus Vaccination: Yes Vertical Provider Document - CONSTITUTIONAL Agree With Documented VS: Yes Exam Limitations: No Limitations General Appearance: WD/WN, No Apparent Distress - INFECTION CONTROL TRAVEL OUTSIDE OF THE [place] IN LAST 30 DAYS: No - HEENT HEENT: Atraumatic, Normocephalic - NECK Neck: Supple - RESPIRATORY Respiratory: Breath Sounds Normal, No Respiratory Distress O2 Sat by Pulse Oximetry: 97 - CARDIOVASCULAR Cardiovascular: Regular Rate - MUSCULOSKELETAL/EXTREMETIES Musculoskeletal/Extremeties: DAWNA FRAGA - NEURO Level of Consciousness: Awake, Alert, Appropriate Motor/Sensory: No Motor Deficit - DERM Integumentary: Warm, Dry Course - Re-evaluation Re-evalutation: 05/16/17 09:19 pt instructed to stop taking Zoloft since she is only taking 25 mg p.o. daily and she is only had 3 doses. She was also instructed to follow-up with [facility] on Thursday for recheck and evaluation. - Vital Signs Vital signs: Temp Pulse Resp BP Pulse Ox 97.9 F 74 18 119/70 97 05/16/17 07:12 05/16/17 07:12 05/16/17 07:12 05/16/17 07:12 05/16/17 07:12 Discharge - Discharge Clinical Impression: Medication reaction Qualifiers: Encounter type: initial encounter Qualified Code(s): T88.7XXA - Unspecified adverse effect of drug or medicament, initial encounter Condition: Stable Disposition: HOME, SELF-CARE Additional Instructions: *You have been evaluated for possible medication reaction *Stop taking zoloft today *Follow up with [facility] on thursday *Return to ED for worsening condition, changes, needs, concerns Forms: Smoking Cessation Education
[2017-05-16 08:19] VITALS: BP 117/68
== END 2017-05-16 08:17 | disposition home or self-care (01) ==
LOC: ER 07:07
DX: T88.7XXA Unspecified adverse effect of drug or medicament, initial encounter (principal)
CPT/HCPCS: 99283

== ENCOUNTER 2017-05-16 21:22 | Emergency (ER) | payer OTHER ==
[2017-05-16] MEDS ORDERED: ONDANSETRON 4 MG TAB.RAPDIS PO ONE (22:38)
[2017-05-16] MEDS ORDERED: PROCHLORPERAZINE MALEATE 5 MG TABLET PO ONE (22:39)
[2017-05-16] MEDS ORDERED: IBUPROFEN 800 MG TABLET PO ONE (23:06)
--- NOTE | 2017-05-16 23:21 | ER Document Report ---
ED General - General Chief Complaint: Constipation Stated Complaint: constipation Time Seen by Provider: 05/16/17 22:38 TRAVEL OUTSIDE OF THE [place] IN LAST 30 DAYS: No - HPI Patient complains to provider of: Multiple complaints Notes: Patient coming in complaining of headache behind her eyes no fevers no chills no nausea vomiting. Patient also complaining of constipation still. Patient was seen recently started on MiraLAX patient states taking it once a day however only had a slight small bowel movement today. Patient denies any abdominal pain. Patient also complains of anxiety. Patient was also seen a few days ago. Symptoms similar to the night thought be related to anxiety was started on Vistaril and Zoloft. Patient states taking Zoloft however has not taken Vistaril taking Benadryl instead. Patient also was seen today and taken off her Zoloft patient was encouraged to follow-up with the [facility]. Patient resting comfortably upon my evaluation no signs of any obvious distress. - Related Data Allergies/Adverse Reactions: No Known Allergies Allergy (Verified 05/16/17 07:11) Past Medical History - Social History Smoking Status: Never Smoker Family History: DM, Hyperlipidemia, Hypertension, Malignancy Patient has suicidal ideation: No Patient has homicidal ideation: No Pulmonary Medical History: Reports: Hx Asthma, Hx Bronchitis, Hx Pneumonia Renal/ Medical History: Reports: Hx Ovarian Cysts. Denies: Hx Peritoneal Dialysis GI Medical History: Reports: Hx Gastroesophageal Reflux Disease Psychiatric Medical History: Reports: Hx Depression - anxiety - Immunizations Immunizations up to date: Yes Hx Diphtheria, Pertussis, Tetanus Vaccination: Yes Review of Systems - Review of Systems Constitutional: No symptoms reported EENT: No symptoms reported Cardiovascular: Dizziness Respiratory: No symptoms reported Gastrointestinal: Constipation Genitourinary: No symptoms reported Female Genitourinary: No symptoms reported Musculoskeletal: No symptoms reported Skin: No symptoms reported Hematologic/Lymphatic: No symptoms reported Neurological/Psychological: No symptoms reported -: Yes All other systems reviewed and negative Physical Exam - Vital signs Vitals: Temp Pulse Resp BP Pulse Ox 98.1 F 84 18 119/78 96 05/16/17 21:48 05/16/17 21:48 05/16/17 21:48 05/16/17 21:48 05/16/17 21:48 Interpretation: Normal - General General appearance: Appears well, Alert - HEENT Head: Normocephalic, Atraumatic Eyes: Normal Pupils: PERRL - Respiratory Respiratory status: No respiratory distress Chest status: Nontender Breath sounds: Normal Chest palpation: Normal - Cardiovascular Rhythm: Regular Heart sounds: Normal auscultation Murmur: No - Abdominal Inspection: Normal Distension: No distension Bowel sounds: Normal Tenderness: Nontender Organomegaly: No organomegaly - Back Back: Normal, Nontender - Extremities General upper extremity: Normal inspection, Nontender, Normal color, Normal ROM , Normal temperature General lower extremity: Normal inspection, Nontender, Normal color, Normal ROM , Normal temperature, Normal weight bearing. No: Elizabeth's sign - Neurological Neuro grossly intact: Yes Cognition: Normal Orientation: AAOx4 [place] Coma Scale Eye Opening: Spontaneous [place] Coma Scale Verbal: Oriented [place] Coma Scale Motor: Obeys Commands [place] Coma Scale Total: 15 Speech: Normal Motor strength normal: LUE, RUE, LLE, RLE Sensory: Normal - Psychological Associated symptoms: Normal affect, Normal mood - Skin Skin Temperature: Warm Skin Moisture: Dry Skin Color: Normal Course - Re-evaluation Re-evalutation: 05/16/17 23:20 EKG was performed patient which was normal. Patient's neurological examination is normal as well. Patient symptoms more likely related to her anxiety patient was encouraged to continue her Vistaril or Benadryl not to mix the 2. Patient was also encouraged to follow-up with the [facility]. Patient states she will call Thursday for an appointment I will have the patient information given to our health and social care teacher that B maybe we can assist her in getting an appointment. Patient was instructed to take MiraLAX twice a day. Medications were offered for her headache patient states she would like to just take her naproxen at home. Patient will be discharged. The patient presents with headache without signs of RELAY ADJUSTER bleed, stroke, infection, or other serious etiology. The patient is neurologically intact. Given the extremely low risk of these diagnoses further testing and evaluation for these possibilities does not appear to be indicated at this time. The patient has been instructed to return if the symptoms worsen or change in any way.. - Vital Signs Vital signs: Temp Pulse Resp BP Pulse Ox 98.1 F 84 18 119/78 96 05/16/17 21:48 05/16/17 21:48 05/16/17 21:48 05/16/17 21:48 05/16/17 21:48 Discharge - Discharge Clinical Impression: Headache Qualifiers: Headache type: unspecified Headache chronicity pattern: unspecified pattern Intractability: not intractable Qualified Code(s): R51 - Headache Constipation Qualifiers: Constipation type: unspecified constipation type Qualified Code(s): K59.00 - Constipation, unspecified Condition: Good Disposition: HOME, SELF-CARE Instructions: Constipation ([facility]), Anxiety ([facility]), Headache ([facility]) Additional Instructions: I recommend drinking plenty of water or fluids to make sure that you are hydrated. Increasing her MiraLAX to twice a day once in the morning once an evening. Once she started having loose stools are a good bowel movement he can go back to using MiraLAX once a day or just use bess-oju-[id number] stool softeners. I do believe some your symptoms are related to her underlying anxiety. Highly recommend she follow-up with the [facility]. I will give you information to our health and social care teacher and see if he can aid in assisting you dictating an appointment. Return to ER if symptoms worsen. Referrals: JERICA FUNES FNP [Primary Care Provider] - Follow up as needed
[2017-05-16 23:27] VITALS: BP 119/74
--- NOTE | 2017-05-17 09:01 | EKG REPORT ---
SEVERITY:- OTHERWISE NORMAL ECG - SINUS ARRHYTHMIA, RATE 57-88 : Confirmed by: Ann Marie Tinajero 17-May-2017 09:00:55
== END 2017-05-16 23:31 | disposition home or self-care (01) ==
LOC: ER 21:22
DX: K59.00 Constipation, unspecified (principal); R51 Headache; F41.9 Anxiety disorder, unspecified; Z79.899 Other long term (current) drug therapy
CPT/HCPCS: 93005; 93010; 99283

== ENCOUNTER 2017-05-30 02:06 | Emergency (ER) | payer OTHER ==
--- NOTE | 2017-05-30 02:46 | ER Document Report ---
HPI - HPI Patient complains to provider of: cough, sweats, sinus pressure Pain Level: 4 Context: Patient is a 31-year-old female comes emergency department for chief complaint of cough for the past few days, congestion, and states that over the past 24 hours she has been breaking out into sweats. She states she also thinks she is wheezing. She smokes, past medical history of anxiety, she states she is medicated for this, she denies any other medications. LMP within the past month , had a negative test within the past week she reports. - REPRODUCTIVE LMP: na Reproductive: DENIES: : Past Medical History - General Information source: Patient - Social History Smoking Status: Current Every Day Smoker Smoking Education Provided: Yes - <3 min Frequency of alcohol use: None Drug Abuse: None Lives with: Alone Family History: DM, Hyperlipidemia, Hypertension, Malignancy Pulmonary Medical History: Reports: Hx Asthma, Hx Bronchitis, Hx Pneumonia Renal/ Medical History: Reports: Hx Ovarian Cysts. Denies: Hx Peritoneal Dialysis GI Medical History: Reports: Hx Gastroesophageal Reflux Disease Psychiatric Medical History: Reports: Hx Depression - anxiety - Immunizations Immunizations up to date: Yes Hx Diphtheria, Pertussis, Tetanus Vaccination: Yes Vertical Provider Document - INFECTION CONTROL TRAVEL OUTSIDE OF THE [place] IN LAST 30 DAYS: No - HEENT HEENT: Atraumatic, Normal ENT Exam, Normocephalic - NECK Neck: Normal Inspection - RESPIRATORY Respiratory: Breath Sounds Normal, No Respiratory Distress O2 Sat by Pulse Oximetry: 97 - CARDIOVASCULAR Cardiovascular: Regular Rate, Regular Rhythm - GI/ABDOMEN Gastrointestinal: Abdomen Soft, Abdomen Non-Tender - BACK Back: Normal Inspection - MUSCULOSKELETAL/EXTREMETIES Musculoskeletal/Extremeties: MAEW, FROM, Non-Tender - NEURO Level of Consciousness: Awake, Alert, Appropriate - DERM Integumentary: Warm, Dry, No Rash Course - Re-evaluation Re-evalutation: Patient with occasional cough which is dry, unremarkable ENT exam, clear lungs, no hypoxia, no signs of respiratory distress. Chest x-ray is unremarkable. Patient stating that she coughed out a lot of mucus and was wheezing beforehand. Vital signs unremarkable. Patient very well-appearing. Patient was provided with an inhaler, dexamethasone, low suspicion of underlying pneumonia, PE, or other acute emergent etiology. Discussed recommendations with patient, smoking cessation, return precautions. Patient states understanding and agreement. - Vital Signs Vital signs: Temp Pulse Resp BP Pulse Ox 98.4 F 77 20 126/77 H 97 05/30/17 02:30 05/30/17 02:30 05/30/17 02:30 05/30/17 02:30 05/30/17 02:30 Discharge - Discharge Clinical Impression: Cough URI (upper respiratory infection) Qualifiers: URI type: unspecified URI Qualified Code(s): J06.9 - Acute upper respiratory infection, unspecified Condition: Stable Disposition: HOME, SELF-CARE Additional Instructions: Your chest x-ray shows no concerning abnormalities. No concerning abnormality on neurologic examination at this time. You have been treated for upper respiratory congestion tonight. Use her albuterol inhaler every 4-6 hours as needed, stop smoking, take [id number] decongestants or nasal sprays if needed in addition to this. You can take Tylenol or ibuprofen for pain. Follow -up with primary care. Return for any concerning or worsening symptoms including difficulty breathing, fever of 100.4 or greater, or any other concerning symptoms. Forms: Smoking Cessation Education
--- NOTE | 2017-05-30 03:10 | RADIOLOGY REPORT (SQ) ---
EXAM DESCRIPTION: CHEST PA/LAT CLINICAL HISTORY: worsening cough, chills COMPARISON: 05/03/2017 FINDINGS: Frontal and lateral views of the chest. The cardiomediastinal silhouette has normal size and contour. No consolidation, pneumothorax, or pleural effusion. No displaced rib fractures identified. Upper abdominal soft tissues are unremarkable. IMPRESSION: 1. No acute pulmonary process identified.
[2017-05-30] MEDS ORDERED: ALBUTEROL SULFATE HFA (90 MCG/PUFF) 8 GM MDI (1 MDI/ER DISP) IH ONE (03:18)
[2017-05-30] MEDS ORDERED: DEXAMETHASONE SOD PHOS INJ 10 MG/1 ML VIAL IM ONE (03:19)
[2017-05-30 03:49] VITALS: BP 131/70
--- NOTE | 2017-05-30 08:49 | EKG REPORT ---
SEVERITY:- BORDERLINE ECG - SINUS RHYTHM PROBABLE LEFT ATRIAL ABNORMALITY : Confirmed by: Torsten Rhodes MD 30-May-2017 08:48:32
== END 2017-05-30 03:49 | disposition home or self-care (01) ==
LOC: ER 02:06
DX: J06.9 Acute upper respiratory infection, unspecified (principal); J45.909 Unspecified asthma, uncomplicated; R05 Cough; R61 Generalized hyperhidrosis; F41.9 Anxiety disorder, unspecified; Z79.899 Other long term (current) drug therapy; F17.200 Nicotine dependence, unspecified, uncomplicated; Z71.6 Tobacco abuse counseling; Z87.01 Personal history of pneumonia (recurrent)
CPT/HCPCS: 93005; 99285; 96372; 71046; 93010; J1100; J3490

== ENCOUNTER 2017-06-06 02:01 | Emergency (ER) | payer OTHER ==
[2017-06-06 02:06] VITALS: BP 128/75
[2017-06-06] MEDS ORDERED: OXYMETAZOLINE HCL 0.05% NASAL SPRAY 15 ML BOTTLE NASL ONE (02:31)
--- NOTE | 2017-06-06 02:32 | ER Document Report ---
ED General - General Chief Complaint: Congestion Stated Complaint: SORE THROAT, COUGHING, CONGESTION Time Seen by Provider: 06/06/17 02:31 Notes: Patient is a 31-year-old female without past medical history who presents with 5 -6 days of nasal congestion, postnasal drip and cough. Patient describes the symptoms as constant, worse at night which actually prevents her from sleeping. She states the persistence of postnasal drip is what brought her to the emergency department today at this hour. She notes a history of similar symptoms in the past with viral sinusitis. She has tried Tylenol to improve her symptoms without relief. Nothing worsens her symptoms. She has not seen her primary doctor regarding today's concerns. She denies any fever, shortness of breath, vomiting or headache. TRAVEL OUTSIDE OF THE [place] IN LAST 30 DAYS: No - Related Data Allergies/Adverse Reactions: No Known Allergies Allergy (Verified 06/06/17 02:38) Past Medical History - General Information source: Patient - Social History Smoking Status: Never Smoker Frequency of alcohol use: None Drug Abuse: None Lives with: Spouse/Significant other Family History: DM, Hyperlipidemia, Hypertension, Malignancy Pulmonary Medical History: Reports: Hx Asthma, Hx Bronchitis, Hx Pneumonia Renal/ Medical History: Reports: Hx Ovarian Cysts. Denies: Hx Peritoneal Dialysis GI Medical History: Reports: Hx Gastroesophageal Reflux Disease Psychiatric Medical History: Reports: Hx Depression - anxiety - Immunizations Immunizations up to date: Yes Hx Diphtheria, Pertussis, Tetanus Vaccination: Yes Review of Systems - Review of Systems Notes: Constitutional: Negative for fever. HENT: Positive for sore throat. Eyes: Negative for visual changes. Cardiovascular: Negative for chest pain. Respiratory: Negative for shortness of breath. Gastrointestinal: Negative for abdominal pain, vomiting or diarrhea. Genitourinary: Negative for dysuria. Musculoskeletal: Negative for back pain. Skin: Negative for rash. Neurological: Negative for headaches, weakness or numbness. 10 point ROS negative except as marked above and in HPI. Physical Exam - Vital signs Vitals: Temp Pulse Resp BP Pulse Ox 97.9 F 83 18 128/75 H 97 06/06/17 02:05 06/06/17 02:05 06/06/17 02:05 06/06/17 02:05 06/06/17 02:05 Interpretation: Normal Notes: PHYSICAL EXAMINATION: GENERAL: Well-appearing, well-nourished and in no acute distress. HEAD: Atraumatic, normocephalic. EYES: Pupils equal round and reactive to light, extraocular movements intact, sclera anicteric, conjunctiva are normal. ENT: nares patent, oropharynx clear without exudates. Moist mucous membranes. NECK: Normal range of motion, supple without lymphadenopathy LUNGS: Breath sounds clear to auscultation bilaterally and equal. No wheezes rales or rhonchi. HEART: Regular rate and rhythm without murmurs ABDOMEN: Soft, nontender, normoactive bowel sounds. No guarding, no rebound. No masses appreciated. EXTREMITIES: Normal range of motion, no pitting or edema. No cyanosis. NEUROLOGICAL: No focal neurological deficits. Moves all extremities spontaneously and on command. PSYCH: Normal mood, normal affect. SKIN: Warm, Dry, normal turgor, no rashes or lesions noted. Course - Re-evaluation Re-evalutation: 06/06/17 02:31 Presentation is most consistent with a viral upper respiratory infection. Patient is overall well appearance, vitals within normal limits, well-hydrated. Patient denies any headache, neck pain, and has no evidence of meningismus on examination. Lungs are clear bilaterally. No evidence of respiratory distress. Based on clinical exam and history, I do not suspect an acute pneumonia, meningitis, strep pharyngitis, or an acute encephalitis. No laboratory or imaging testing is indicated at this time. Will discharge patient with return precautions and followup recommendations. They are in agreement this plan have verbalized understanding return precautions. - Vital Signs Vital signs: Temp Pulse Resp BP Pulse Ox 97.9 F 83 18 128/75 H 97 06/06/17 02:05 06/06/17 02:05 06/06/17 02:05 06/06/17 02:05 06/06/17 02:05 Discharge - Discharge Clinical Impression: Nasal congestion Upper respiratory infection Qualifiers: URI type: unspecified viral URI Qualified Code(s): J06.9 - Acute upper respiratory infection, unspecified Condition: Good Disposition: HOME, SELF-CARE Additional Instructions: Your symptoms are most likely due to a viral infection it should resolve over the next 7-14 days. You should take wbmn-[id number] guanfacine per bottle instructions to help thin the mucus. For nasal congestion: I would recommend that you get wcvj-urk-[id number] oxymetazoline also known is afrin. Use only per bottle instructions and be sure to never use this for more than 3 days if you can develop severe rebound congestion. You may also use tylenol or ibuprofen as needed for aches and throat discomfort. Please be sure to drink plenty of fluids and get rest. Return to the emergency department he began having difficulty breathing, chest pain, persistent vomiting, or any other symptoms that are concerning to you.
== END 2017-06-06 02:50 | disposition home or self-care (01) ==
LOC: ER 02:01
DX: J06.9 Acute upper respiratory infection, unspecified (principal); B97.89 Other viral agents as the cause of diseases classified elsewhere; R09.82 Postnasal drip; J02.9 Acute pharyngitis, unspecified; R09.81 Nasal congestion; R05 Cough; J45.909 Unspecified asthma, uncomplicated; Z87.01 Personal history of pneumonia (recurrent)
CPT/HCPCS: 99283; J3490

== ENCOUNTER 2017-09-24 05:19 | Emergency (ER) | payer OTHER ==
[2017-09-24] MEDS ORDERED: NORMAL SALINE 1000 ML 1,000 ML IV ONE (07:19)
[2017-09-24] MEDS ORDERED: METOCLOPRAMIDE HCL INJ/PF 10 MG/2 ML SDV IV ONE (07:19)
[2017-09-24] MEDS ORDERED: DIPHENHYDRAMINE HCL 50 MG/ML VIAL IV ONE (07:19)
[2017-09-24 07:38] LABS: ABSOLUTE EOSINOPHILS # (AUTO) 0.2 10^3/uL (0.0-0.6); ABSOLUTE LYMPHOCYTES (AUTO) 3.2 10^3/uL (0.5-4.7); ABSOLUTE MONOCYTES (AUTO) 0.5 10^3/uL (0.1-1.4); ABSOLUTE NEUT (AUTO) 3.2 10^3/uL (1.7-8.2); BASOPHILS % (AUTO) 0.6 % (0-2); EOSINOPHILS % (AUTO) 2.4 % (0-6); HEMATOCRIT 39.5 % (36.0-47.0); LYMPHOCYTES % (AUTO) 45.6 % (13-45); MEAN CORPUSCULAR HEMOGLOBIN 29.1 pg (27.0-33.4); MEAN CORPUSCULAR HGB CONC 35.4 g/dL (32.0-36.0); MEAN CORPUSCULAR VOLUME 82 fl (80-97); MONOCYTES % (AUTO) 6.9 % (3-13); PLATELET COUNT 260 10^3/uL (150-450); RED BLOOD COUNT 4.81 10^6/uL (3.72-5.28); RED CELL DISTRIBUTION WIDTH 13.7 % (11.5-14.0); SEGMENTED NEUTROPHILS % (AUTO) 44.5 % (42-78); TOTAL CELLS COUNTED % (AUTO) 100 %; WHITE BLOOD COUNT 7.1 10^3/uL (4.0-10.5)
[2017-09-24 07:45] LABS: APPEARANCE,URINE CLEAR; BILIRUBIN,URINE NEGATIVE (NEGATIVE); COLOR,URINE STRAW; GLUCOSE, URINE NEGATIVE (NEGATIVE); KETONES,URINE NEGATIVE (NEGATIVE); LEUKOCYTE ESTERASE,URINE NEGATIVE (NEGATIVE); NITRITE,URINE NEGATIVE (NEGATIVE); PROTEIN,URINE NEGATIVE (NEGATIVE); URINE SPECIFIC GRAVITY 1.008; UROBILINOGEN,URINE NEGATIVE mg/dL (<2.0)
[2017-09-24 07:55] LABS: ALANINE AMINOTRANSFERASE 30 U/L (9-52); ALKALINE PHOSPHATASE 89 U/L (38-126); ANION GAP 11 (5-19); ASPARTATE AMINO TRANSFERASE 26 U/L (14-36); BILIRUBIN,DIRECT 0.3 mg/dL (0.0-0.4); BILIRUBIN,TOTAL 0.3 mg/dL (0.2-1.3); BLOOD UREA NITROGEN 11 mg/dL (7-20); CALCIUM 9.7 mg/dL (8.4-10.2); CARBON DIOXIDE 25 mmol/L (22-30); CHLORIDE 108 mmol/L (98-107); GLUCOSE 106 mg/dL (75-110); LIPASE 101.7 U/L (23-300); SODIUM 144.4 mmol/L (137-145); TOTAL PROTEIN 7.2 g/dL (6.3-8.2)
--- NOTE | 2017-09-24 08:41 | RADIOLOGY REPORT (SQ) ---
EXAM DESCRIPTION: U/S ABDOMEN LIMITED W/O DOP COMPLETED DATE/TIME: 09/24/2017 8:30 am REASON FOR STUDY: epig pain COMPARISON: KUB 05/07/2017 Abdominal ultrasound 05/09/2012 TECHNIQUE: Dynamic and static grayscale images acquired of the abdomen and recorded on PACS. Additio nal selected color Doppler and spectral images recorded. LIMITATIONS: None. FINDINGS: PANCREAS: Midline pancreas unremarkable LIVER: No masses. Echotexture normal. LIVER VASCULATURE: Normal directional flow of the main portal vein and hepatic veins. GALLBLADDER: No stones. Normal wall thickness. No pericholecystic fluid. ULTRASOUND-DETECTED LAMA'S SIGN: Negative. INTRAHEPATIC DUCTS AND COMMON DUCT: CBD and intrahepatic ducts normal caliber. No filling defects. INFERIOR VENA CAVA: Normal flow. AORTA: No aneurysm. RIGHT KIDNEY: Normal size. Normal echogenicity. No solid or suspicious masses. No hydronephrosis. No calcifications. PERITONEAL AND RIGHT PLEURAL SPACE: No ascites or effusions. OTHER: No other significant findings. IMPRESSION: NORMAL RIGHT UPPER QUADRANT ULTRASOUND. TECHNICAL DOCUMENTATION: JOB ID: [id number] [employer]- All Rights Reserved Reading location - IP/workstation name: [email or web address]
--- NOTE | 2017-09-24 09:52 | ER Document Report ---
ED GI/ - General Chief Complaint: Nausea/Vomiting Stated Complaint: NAUSEA Time Seen by Provider: 09/24/17 07:13 Mode of Arrival: Ambulatory Information source: Patient Notes: Patient presents complaining of nausea and vomiting for the past several days. Patient states she did drink a pot of coffee late last night and that is what precipitated her symptoms. Patient does report urinary frequency but attributes this to the increased caffeine intake. Patient is uncertain if she may be . Patient denies any fever. TRAVEL OUTSIDE OF THE [place] IN LAST 30 DAYS: No - HPI Patient complains to provider of: Abdominal pain, Vomiting Timing/Duration: Gradual Quality of pain: Achy Pain Level: 3 Location: Epigastric Vaginal bleeding (Compared to normal period): None Sexual history: Active Associated symptoms: Nausea, Urinary frequency, Vomiting. 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 Denies: Hx Peritoneal Dialysis GI Medical History: Reports: Hx Gastroesophageal Reflux Disease Psychiatric Medical History: Reports: Hx Depression - anxiety Surgical Hx: Negative - Immunizations Immunizations up to date: Yes Hx Diphtheria, Pertussis, Tetanus Vaccination: Yes Review of Systems - Review of Systems Constitutional: No symptoms reported. denies: Fever, Recent illness EENT: No symptoms reported Cardiovascular: No symptoms reported. denies: Chest pain Respiratory: No symptoms reported Gastrointestinal: Abdominal pain, Nausea, Vomiting. denies: Diarrhea, Poor appetite Genitourinary: Frequency. denies: Burning, Dysuria, Flank pain Female Genitourinary: No symptoms reported. denies: Vaginal discharge, Vaginal bleeding Musculoskeletal: No symptoms reported. denies: Back pain Skin: No symptoms reported Hematologic/Lymphatic: No symptoms reported Neurological/Psychological: No symptoms reported Physical Exam - Vital signs Vitals: Temp Pulse Resp BP Pulse Ox 97.8 F 99 16 138/73 H 98 09/24/17 05:26 09/24/17 05:26 09/24/17 05:26 09/24/17 05:09/24/17 05:26 - General General appearance: Appears well, Alert In distress: None - HEENT Head: Normocephalic, Atraumatic Eyes: Normal Conjunctiva: Normal Nasal: Normal Mouth/Lips: Normal Mucous membranes: Normal Pharynx: Normal Neck: Normal, Supple. No: Lymphadenopathy - Respiratory Respiratory status: No respiratory distress Chest status: Nontender Breath sounds: Normal Chest palpation: Normal - Cardiovascular Rhythm: Regular Heart sounds: S1 appreciated, S2 appreciated Murmur: No - Abdominal Inspection: Normal Distension: No distension Bowel sounds: Normal Tenderness: Tender - Mild epigastric tenderness Organomegaly: No organomegaly - Back Back: Normal, Nontender. No: CVA tenderness - Extremities General upper extremity: Normal inspection, Normal strength General lower extremity: Normal inspection, Normal strength - Neurological Neuro grossly intact: Yes Cognition: Normal Davon Coma Scale Eye Opening: Spontaneous Davon Coma Scale Verbal: Oriented Davon Coma Scale Motor: Obeys Commands Bethel Coma Scale Total: 15 - Psychological Associated symptoms: Normal affect, Normal mood - Skin Skin Temperature: Warm Skin Moisture: Dry Skin Color: Normal Course - Re-evaluation Re-evalutation: 09/24/17 09:48 Patient sleeping, arouses easily to voice. Patient denies any nausea or vomiting states abdominal pain is improved. Ultrasound report reviewed, no concern for any cholecystitis, cholelithiasis or cholangitis. Laboratory studies otherwise unremarkable. Patient presents with abdominal pain without signs of peritonitis or other life-threatening or serious etiology. Patient appears stable for discharge and has been instructed to return immediately if the symptoms worsen in any way, or in 8-12 hours if not improved for reevaluation. The patient has been instructed to return if the symptoms worsen or change in any way. - Vital Signs Vital signs: Temp Pulse Resp BP Pulse Ox 98.3 F 69 16 109/60 98 09/24/17 10:00 09/24/17 10:00 09/24/17 05:09/24/17 10:00 09/24/17 10:00 - Laboratory Result Diagrams: 09/24/17 06:30 09/24/17 06:30 Laboratory results interpreted by me: 09/24/17 09/24/17 06:30 06:30 Lymphocytes % 45.6 H Chloride 108 H 09/24/17 09:48 Labs- Entire Visit 09/24/17 09/24/17 09/24/17 06:30 06:30 06:30 WBC 7.1 RBC 4.81 Hgb 14.0 Hct 39.5 MCV 82 MCH 29.1 MCHC 35.4 RDW 13.7 Plt Count 260 Seg Neutrophils % 44.5 Lymphocytes % 45.6 H Monocytes % 6.9 Eosinophils % 2.4 Basophils % 0.6 Absolute Neutrophils 3.2 Absolute Lymphocytes 3.2 Absolute Monocytes 0.5 Absolute Eosinophils 0.2 Absolute Basophils 0.0 Sodium 144.4 Potassium 4.0 Chloride 108 H Carbon Dioxide 25 Anion Gap 11 BUN 11 Creatinine 0.65 Est GFR ( Amer) > 60 Est GFR (Non-Af Amer) > 60 Glucose 106 Calcium 9.7 Total Bilirubin 0.3 Direct Bilirubin 0.3 Neonat Total Bilirubin Not Reportable Neonat Direct Bilirubin Not Reportable Neonat Indirect Bili Not Reportable AST 26 ALT 30 Alkaline Phosphatase 89 Total Protein 7.2 Albumin 4.0 Lipase 101.7 Serum HCG, Qual NEGATIVE Urine Color Urine Appearance Urine pH Ur Specific Darragh Urine Protein Urine Glucose (UA) Urine Ketones Urine Blood Urine Nitrite Urine Bilirubin Urine Urobilinogen Ur Leukocyte Esterase Urine RBC (Auto) Squamous Epi Cells Auto Urine Mucus (Auto) Urine Ascorbic Acid 09/24/17 06:30 WBC RBC Hgb Hct MCV MCH MCHC RDW Plt Count Seg Neutrophils % Lymphocytes % Monocytes % Eosinophils % Basophils % Absolute Neutrophils Absolute Lymphocytes Absolute Monocytes Absolute Eosinophils Absolute Basophils Sodium Potassium Chloride Carbon Dioxide Anion Gap BUN Creatinine Est GFR ( Amer) Est GFR (Non-Af Amer) Glucose Calcium Total Bilirubin Direct Bilirubin Neonat Total Bilirubin Neonat Direct Bilirubin Neonat Indirect Bili AST ALT Alkaline Phosphatase Total Protein Albumin Lipase Serum HCG, Qual Urine Color STRAW Urine Appearance CLEAR Urine pH 6.0 Ur Specific Darragh 1.008 Urine Protein NEGATIVE Urine Glucose (UA) NEGATIVE Urine Ketones NEGATIVE Urine Blood NEGATIVE Urine Nitrite NEGATIVE Urine Bilirubin NEGATIVE Urine Urobilinogen NEGATIVE Ur Leukocyte Esterase NEGATIVE Urine RBC (Auto) 0 Squamous Epi Cells Auto 1 Urine Mucus (Auto) RARE Urine Ascorbic Acid NEGATIVE - Diagnostic Test Radiology reviewed: Reports reviewed Discharge - Discharge Clinical Impression: Abdominal pain Qualifiers: Abdominal location: epigastric Qualified Code(s): R10.13 - Epigastric pain Nausea and vomiting Qualifiers: Vomiting type: unspecified Vomiting Intractability: unspecified Qualified Code( s): R11.2 - Nausea with vomiting, unspecified Condition: Stable Disposition: HOME, SELF-CARE Instructions: Abdominal Pain ([facility]), Antinausea Medication ([facility]), Intravenous ( IV) Fluids ([facility]) Additional Instructions: Return immediately for any new or worsening symptoms Followup with your primary care provider, call tomorrow to make a followup appointment Prescriptions: Ondansetron HCl [Zofran 4 mg Tablet] 1 - 2 tab PO Q6 PRN #15 tablet PRN Reason: Forms: Smoking Cessation Education, Return to Work Referrals: [facility] [Provider Group] - Follow up as needed
[2017-09-24 10:03] VITALS: BP 109/60
== END 2017-09-24 10:18 | disposition home or self-care (01) ==
LOC: ER 05:19
DX: R10.13 Epigastric pain (principal); R11.2 Nausea with vomiting, unspecified; R35.0 Frequency of micturition; F17.200 Nicotine dependence, unspecified, uncomplicated; J45.909 Unspecified asthma, uncomplicated
CPT/HCPCS: 99284; 96361; 96374; 96375; 36415; 83690; 84703; 85025; 80053; 81001; 76705; J1200; J2765; J7030

== ENCOUNTER 2017-11-07 00:51 | Emergency (ER) | payer SELFPAY ==
[2017-11-07 00:59] VITALS: BP 130/88
[2017-11-07] MEDS ORDERED: AMOXICILLIN TRIHYDRATE 500 MG CAPSULE PO ONE (01:34)
--- NOTE | 2017-11-07 01:37 | ER Document Report ---
HPI - HPI Patient complains to provider of: sinus pain, congestion, cough, fever Pain Level: 3 Context: Patient is a 32-year-old female comes emergency department for chief complaint of 3 days of worsening symptoms of sore throat, cough, sinus pain, intermittent ear pain, and she states that during the day and yesterday she had fevers. She denies current sore throat, current ear pain, shortness of breath. She smokes, she denies any daily medications, LMP within the past month, denies any past medical history. Patient with multiple sick contacts at home. - CONSTITUTIONAL Constitutional: REPORTS: Fever - RESPIRATORY Respiratory: REPORTS: Coughing - REPRODUCTIVE Reproductive: DENIES: : Past Medical History - General Information source: Patient - Social History Smoking Status: Current Every Day Smoker Chew tobacco use (# tins/day): No Smoking Education Provided: Yes - <3 min Frequency of alcohol use: None Drug Abuse: Marijuana Lives with: Family Family History: DM, Hyperlipidemia, Hypertension, Malignancy Patient has suicidal ideation: No Patient has homicidal ideation: No Pulmonary Medical History: Reports: Hx Asthma, Hx Bronchitis, Hx Pneumonia Renal/ Medical History: Reports: Hx Ovarian Cysts. Denies: Hx Peritoneal Dialysis GI Medical History: Reports: Hx Gastroesophageal Reflux Disease Psychiatric Medical History: Reports: Hx Depression - anxiety - Immunizations Immunizations up to date: Yes Hx Diphtheria, Pertussis, Tetanus Vaccination: Yes Vertical Provider Document - CONSTITUTIONAL General Appearance: WD/WN, No Apparent Distress - INFECTION CONTROL TRAVEL OUTSIDE OF THE [place] IN LAST 30 DAYS: No - HEENT HEENT: Atraumatic, Normocephalic. negative: Normal ENT Exam - Tenderness over bilateral maxillary sinuses, nasal congestion, mild erythema of the posterior pharynx with no swelling of the tonsils or exudates, unremarkable examination of both ears, remaining ENT exam unremarkable. - NECK Neck: Normal Inspection. negative: Lymphadenopathy-Left, Lymphadenopathy-Right - RESPIRATORY Respiratory: Breath Sounds Normal, No Respiratory Distress. negative: Wheezing - CARDIOVASCULAR Cardiovascular: Regular Rate, Regular Rhythm - GI/ABDOMEN Gastrointestinal: Abdomen Soft, Abdomen Non-Tender - BACK Back: Normal Inspection - MUSCULOSKELETAL/EXTREMETIES Musculoskeletal/Extremeties: MAEW, FROM, Non-Tender - NEURO Level of Consciousness: Awake, Alert, Appropriate - DERM Integumentary: Warm, Dry, No Rash Course - Vital Signs Vital signs: Temp Pulse Resp BP Pulse Ox 98.3 F 80 16 130/88 H 95 11/07/17 00:57 11/07/17 00:57 11/07/17 00:57 11/07/17 00:57 11/07/17 00:57 Discharge - Discharge Clinical Impression: Sinusitis Qualifiers: Sinusitis location: maxillary Chronicity: acute Recurrence: not specified as recurrent Qualified Code(s): J01.00 - Acute maxillary sinusitis, unspecified Upper respiratory infection Qualifiers: URI type: unspecified URI Qualified Code(s): J06.9 - Acute upper respiratory infection, unspecified Condition: Stable Disposition: HOME, SELF-CARE Additional Instructions: Your examination is consistent with a viral upper respiratory infection and developing sinus infection. Take amoxicillin as prescribed to completion for sinus infection. Decongestants such as Sudafed can help with the sinuses, decongestants such as Mucinex can help with chest congestion. Flonase over-the- counter can help with sinus congestion as well. Take Tylenol or ibuprofen for pain. Drink plenty fluids and rest. Follow-up with primary care. Stop smoking. Return for any concerning symptoms including severe headache, spiking fever, vomiting, difficulty breathing, or any other concerning or worsening symptoms. Prescriptions: Amoxicillin Trihydrate [Amoxil 875 mg Tablet] 1 tab PO BID #20 tablet Forms: Return to Work Referrals: VIRGIE MILTON MD [Primary Care Provider] - Follow up as needed
== END 2017-11-07 01:47 | disposition home or self-care (01) ==
LOC: ER 00:51
DX: J01.00 Acute maxillary sinusitis, unspecified (principal); J06.9 Acute upper respiratory infection, unspecified; R05 Cough; R50.9 Fever, unspecified; F17.200 Nicotine dependence, unspecified, uncomplicated; J45.909 Unspecified asthma, uncomplicated; Z87.01 Personal history of pneumonia (recurrent)
CPT/HCPCS: 99283

== ENCOUNTER 2017-12-11 09:37 | Emergency (ER) | payer SELFPAY ==
[2017-12-11] MEDS ORDERED: DOXYCYCLINE HYCLATE 100 MG TABLET PO ONE (10:07)
[2017-12-11] MEDS ORDERED: ONDANSETRON 4 MG TAB.RAPDIS PO ONE (10:07)
--- NOTE | 2017-12-11 10:13 | ER Document Report ---
ED General - General Chief Complaint: Nausea/Vomiting Stated Complaint: COUGH/VOMITING/FEVER Time Seen by Provider: 12/11/17 10:01 Mode of Arrival: Ambulatory Information source: Patient Notes: 32-year-old female with asthma, presents with complaint of cough, fever, congestion and vomiting that started 2 days prior to arrival. Patient states that she has had a productive cough and a fever of 101 for the last few days. She states that yesterday she began vomiting and has not unable to hold down anything since then. She denies any associated abdominal pain, chest pain, shortness of breath, dysuria, hematuria. She does admit to sick contacts with a roommate at home with similar symptoms. Patient has had a recent diagnosis of pneumonia within the last 3 months. She states this feels very similar. Patient is a pack per day smoker, admits to occasional marijuana use. TRAVEL OUTSIDE OF THE [place] IN LAST 30 DAYS: No - HPI Onset: Other Onset/Duration: Gradual, Persistent, Worse Associated symptoms: Productive cough, Fever, Nausea, Vomiting Exacerbated by: Denies Relieved by: Denies Similar symptoms previously: Yes Recently seen / treated by doctor: No - Related Data Allergies/Adverse Reactions: No Known Allergies Allergy (Verified 06/06/17 03:09) Past Medical History - General Information source: Patient - Social History Smoking Status: Current Every Day Smoker Cigarette use (# per day): Yes - 15 Chew tobacco use (# tins/day): No Smoking Education Provided: Yes - Smoking cessation counseling was provided for 4 minutes at the bedside Frequency of alcohol use: None Drug Abuse: Marijuana Lives with: Friend Family History: DM, Hyperlipidemia, Hypertension, Malignancy Patient has suicidal ideation: No Patient has homicidal ideation: No Pulmonary Medical History: Reports: Hx Asthma, Hx Bronchitis, Hx Pneumonia Renal/ Medical History: Reports: Hx Ovarian Cysts. Denies: Hx Peritoneal Dialysis GI Medical History: Reports: Hx Gastroesophageal Reflux Disease Psychiatric Medical History: Reports: Hx Depression - anxiety - Immunizations Immunizations up to date: Yes Hx Diphtheria, Pertussis, Tetanus Vaccination: Yes Review of Systems - Review of Systems Notes: REVIEW OF SYSTEMS: CONSTITUTIONAL : Denies chills, or sweats. Denies weight loss, recent hospitalizations. EENT: Denies visual changes, eye pain. Denies sore throat, oral lesions, difficulty swallowing. CARDIOVASCULAR: Denies chest pain. Denies palpitations. Denies lower extremity edema. RESPIRATORY: Denies shortness of breath, wheezing. GASTROINTESTINAL: Denies abdominal pain or distention. Denies diarrhea. Denies blood in vomitus, stools, or per rectum. Denies black, tarry stools. Denies constipation. GENITOURINARY: Denies difficulty urinating, painful urination, frequency, blood in urine, or vaginal discharge. MUSCULOSKELETAL: Denies back or neck pain or stiffness. Denies joint pain or swelling. SKIN: Denies rash, lesions or sores. HEMATOLOGIC : Denies easy bruising or bleeding. LYMPHATIC: Denies swollen glands. NEUROLOGICAL: Denies confusion or altered mental status. Denies loss of consciousness. Denies dizziness or lightheadedness. Denies headache. Denies weakness or paralysis. Denies problems difficulty with ambulation, slurred speech. Denies sensory loss, numbness, or tingling. Denies seizures. PSYCHIATRIC: Denies anxiety or stress. Denies depression, suicidal ideation, or homicidal ideation. Denies visual or auditory hallucinations. PHYSICAL EXAMINATION: GENERAL: Well-appearing, well-nourished and in no acute distress. HEAD: Atraumatic, normocephalic. EYES: Pupils equal round and reactive to light, extraocular movements intact, conjunctiva are normal. ENT: Nares patent, oropharynx clear without exudates. Moist mucous membranes. NECK: Normal range of motion, supple without lymphadenopathy LUNGS: Breath sounds clear to auscultation bilaterally and equal. No wheezes rales or rhonchi. HEART: Regular rate and rhythm without murmurs ABDOMEN: Soft, nontender, nondistended abdomen. No guarding, no rebound. No masses appreciated. Female : deferred Musculoskeletal: Normal range of motion, no pitting or edema. No cyanosis. NEUROLOGICAL: Cranial nerves grossly intact. Normal speech, normal gait. Normal sensory, motor exams PSYCH: Normal mood, normal affect. SKIN: Warm, Dry, normal turgor, no rashes or lesions noted. Physical Exam - Vital signs Vitals: Temp Pulse Resp BP Pulse Ox 97.7 F 77 16 132/86 H 97 12/11/17 09:51 12/11/17 09:51 12/11/17 09:51 12/11/17 09:51 12/11/17 09:51 Interpretation: Hypertensive. No: Tachycardic, Hypoxic - Notes Notes: PHYSICAL EXAMINATION: GENERAL: Well-appearing, well-nourished and in no acute distress. HEAD: Atraumatic, normocephalic. EYES: Pupils equal round and reactive to light, extraocular movements intact, conjunctiva are normal. ENT: Nares patent, oropharynx clear without exudates. Moist mucous membranes. NECK: Normal range of motion, supple without lymphadenopathy LUNGS: Breath sounds clear to auscultation bilaterally and equal. No wheezing, rhonchi, coarse breath sounds HEART: Regular rate and rhythm without murmurs ABDOMEN: Soft, nontender, nondistended abdomen. No guarding, no rebound. No masses appreciated. Female : deferred Musculoskeletal: Normal range of motion, no pitting or edema. No cyanosis. NEUROLOGICAL: Cranial nerves grossly intact. Normal speech, normal gait. Normal sensory, motor exams PSYCH: Normal mood, normal affect. SKIN: Warm, Dry, normal turgor, no rashes or lesions noted. Course - Re-evaluation Re-evalutation: 12/11/17 15:55 32-year-old female with asthma, presents with complaint of cough, fever, congestion and vomiting that started 2 days prior to arrival. Patient states that she has had a productive cough and a fever of 101 for the last few days. She states that yesterday she began vomiting and has not unable to hold down anything since then. She denies any associated abdominal pain, chest pain, shortness of breath, dysuria, hematuria. She does admit to sick contacts with a roommate at home with similar symptoms. Patient was seen by myself upon arrival. Vital signs were reviewed. Patient is afebrile, normotensive and not hypoxic. Patient does not appear toxic or dehydrated. They are in no acute distress. Previous medical records and nursing notes reviewed. Patient has a normal physical exam. Clear lung sounds. She has had no episodes of vomiting during her ED course. She was provided Zofran and doxycycline and has been tolerating fluids. Patient requesting a note for work which was provided. Patient provided the opportunity to ask questions, and express concerns. Discharge instructions discussed. Patient is agreeable with discharge home. Return indications explained and discussed with the patient who displays understanding. Patient encouraged to return to the emergency department immediately with any concerns. Presentation is most consistent with a viral upper respiratory infection. Patient is overall well appearance, vitals within normal limits, well-hydrated. Patient denies any headache, neck pain, and has no evidence of meningismus on examination. Lungs are clear bilaterally. No evidence of respiratory distress. Based on clinical exam and history, I do not suspect an acute pneumonia, meningitis, strep pharyngitis, or an acute encephalitis. No laboratory or imaging testing is indicated at this time. Will discharge patient with return precautions and followup recommendations. They are in agreement this plan have verbalized understanding return precautions. Because of the reported fever patient was provided a prescription for an antibiotic but she was asked to hold this for at least 48 hours to see if symptoms improved. Patient provided a prescription for Zofran as well. - Vital Signs Vital signs: Temp Pulse Resp BP Pulse Ox 98.4 F 84 18 128/76 H 100 12/11/17 11:29 12/11/17 11:29 12/11/17 11:29 12/11/17 11:29 12/11/17 11:29 Discharge - Discharge Clinical Impression: Cough Nausea & vomiting Qualifiers: Vomiting type: unspecified Vomiting Intractability: unspecified Qualified Code( s): R11.2 - Nausea with vomiting, unspecified URI (upper respiratory infection) Qualifiers: URI type: unspecified URI Qualified Code(s): J06.9 - Acute upper respiratory infection, unspecified Condition: Good Disposition: HOME, SELF-CARE Instructions: Acetaminophen, Antinausea Medication ([facility]), Fever ([facility]), Upper Respiratory Illness ([facility]), Viral Syndrome ([facility]) Additional Instructions: Your symptoms are most likely due to a viral infection it should resolve over the next 7-14 days. You should take [id number] guanfacine per bottle instructions to help thin the mucus. For nasal congestion: I would recommend that you get [id number] oxymetazoline also known is afrin. Use only per bottle instructions and be sure to never use this for more than 3 days if you can develop severe rebound congestion. You may also use tylenol or ibuprofen as needed for aches and thorat discomfort. Please be sure to drink plenty of fluids and get rest. Return to the emergency department he began having difficulty breathing, chest pain, persistent vomiting, or any other symptoms that are concerning to you. Because of your reported fever I did provide you with an antibiotic. I feel that you should hold this for the next 48 hours and see if symptoms resolve on their own. If your fever persists then I advised taking the antibiotic. Most prescribed medications have multiple side effects. The safest thing to do is when filling your prescription please speak to your pharmacist regarding possible interactions with your normal home medications and over the counter medications such as Ibuprofen, Tylenol, Benadryl.. If you experience any symptoms that cause you discomfort or concern you discontinue the medication immediately and return to the emergency room or call your primary care physician. Follow up with your physician tomorrow for further care or return to the ED IMMEDIATELY if symptoms worsen or new concerns occur. If you cannot afford to follow up with your primary care physician a list of low cost clinics have been provided at the end of your discharge papers as well. Prescriptions: Doxycycline Hyclate 100 mg PO BID #14 capsule Ondansetron [Zofran Odt 4 mg Tablet] 1 tab PO Q4H PRN #8 tab.rapdis PRN Reason: For Nausea/Vomiting Forms: Elevated Blood Pressure, Return to Work Referrals: VIRGIE MILTON MD [Primary Care Provider] - Follow up as needed
[2017-12-11 11:30] VITALS: BP 128/76
== END 2017-12-11 11:33 | disposition home or self-care (01) ==
LOC: ER 09:37
DX: R11.2 Nausea with vomiting, unspecified (principal); J06.9 Acute upper respiratory infection, unspecified; R05 Cough; F12.10 Cannabis abuse, uncomplicated; J45.909 Unspecified asthma, uncomplicated; R50.9 Fever, unspecified; F17.210 Nicotine dependence, cigarettes, uncomplicated; Z71.6 Tobacco abuse counseling; Z87.01 Personal history of pneumonia (recurrent)
CPT/HCPCS: 99406; 99283; S0119

== ENCOUNTER 2017-12-12 04:31 | Emergency (ER) | payer SELFPAY ==
[2017-12-12 04:59] VITALS: BP 119/70
--- NOTE | 2017-12-12 06:30 | ER Document Report ---
ED General - General Mode of Arrival: Ambulatory Information source: Patient TRAVEL OUTSIDE OF THE [place] IN LAST 30 DAYS: No - General Chief Complaint: Abdominal Pain Stated Complaint: ABDOMINAL PAIN Time Seen by Provider: 12/12/17 06:08 Notes: Patient is a 32 year old female presenting to the emergency department complaining of heart burn and abdominal pain onset yesterday. Patient states she was seen in the emergency department yesterday and was prescribed Doxycycline after being diagnosed with an upper respiratory infection. Patient states she feels she can not tolerate the capsule form of the medication further stating while in the emergency department she received a tablet form and was able to tolerate it without any difficulties. She states she has taken Rolaids with no relief. (ALANIS BISHOP) - Related Data Allergies/Adverse Reactions: No Known Allergies Allergy (Verified 06/06/17 03:09) Past Medical History - General Information source: Patient - Social History Smoking Status: Current Every Day Smoker Chew tobacco use (# tins/day): No Frequency of alcohol use: None Drug Abuse: Marijuana Family History: DM, Hyperlipidemia, Hypertension, Malignancy Patient has suicidal ideation: No Patient has homicidal ideation: No Pulmonary Medical History: Reports: Hx Asthma, Hx Bronchitis, Hx Pneumonia Renal/ Medical History: Reports: Hx Ovarian Cysts GI Medical History: Reports: Hx Gastroesophageal Reflux Disease Psychiatric Medical History: Reports: Hx Depression - anxiety - Immunizations Immunizations up to date: Yes Hx Diphtheria, Pertussis, Tetanus Vaccination: Yes Review of Systems - Review of Systems Constitutional: No symptoms reported EENT: No symptoms reported Cardiovascular: See HPI Respiratory: No symptoms reported Gastrointestinal: See HPI, Abdominal pain Genitourinary: No symptoms reported Female Genitourinary: No symptoms reported Musculoskeletal: No symptoms reported Skin: No symptoms reported Hematologic/Lymphatic: No symptoms reported Neurological/Psychological: No symptoms reported -: Yes All other systems reviewed and negative Physical Exam - Vital signs Vitals: Temp Pulse Resp BP Pulse Ox 97.8 F 61 18 119/70 98 12/12/17 04:52 12/12/17 04:52 12/12/17 04:52 12/12/17 04:52 12/12/17 04:52 - Notes Notes: GENERAL: Alert, interacts well. No acute distress. HEAD: Normocephalic, atraumatic. EYES: Pupils equal, round, and reactive to light. Extraocular movements intact. ENT: Oral mucosa moist, tongue midline. NECK: Full range of motion. Supple. Trachea midline. LUNGS: Clear to auscultation bilaterally, no wheezes, rales, or rhonchi. No respiratory distress. HEART: Regular rate and rhythm. No murmurs, gallops, or rubs. ABDOMEN: Soft, mild epigastric tenderness to palpation. Non-distended. Bowel sounds present in all 4 quadrants. EXTREMITIES: Moves all 4 extremities spontaneously. NEUROLOGICAL: Alert and oriented x3. Normal speech. PSYCH: Normal affect, normal mood. SKIN: Warm, dry, normal turgor. No rashes or lesions noted. (ALANIS BISHOP) Course - Re-evaluation Re-evalutation: 12/12/17 06:32 Patient states she has been having heart burn which is unrelieved by Rolaids since taking her first capsule of doxycycline. No throat swelling or difficulty breathing, no other symptoms. States she did not have the same symptoms when she took a tablet of doxycycline earlier today. Patient is wondering if I can write her a prescription for the tablets instead of the capsules. Discussed with patient that she could simply break up the capsules and sprinkle them on her food. Patient would rather try this before having to pay for new prescription. Patient was given the emergency department number and told that I would be working until 4 PM, her next dose is in about 2 hours, if this does not help then she will call back and I will change her prescription. No other new complaints. (ROBERT LOPEZ) - Vital Signs Vital signs: Temp Pulse Resp BP Pulse Ox 97.8 F 61 18 119/70 98 12/12/17 04:52 12/12/17 04:52 12/12/17 04:52 12/12/17 04:52 12/12/17 04:52 Discharge - Discharge Clinical Impression: Medication side effect Condition: Stable Disposition: HOME, SELF-CARE Additional Instructions: Try breaking open the capsules and sprinkling them on your food. If this does not prevent the heartburn then call back to the emergency department and asked for Dr. Lopez. I will then call in a prescription for doxycycline tablets for you. Referrals: VIRGIE MILTON MD [Primary Care Provider] - Follow up as needed Scribe Attestation: 12/12/17 10:02 I personally performed the services described in the documentation, reviewed and edited the documentation which was dictated to the scribe in my presence, and it accurately records my words and actions. (ROBERT LOPEZ) Scribe Documentation - Scribe Written by Jay:: Jay Bustamante, 12/12/2017 06:45 acting as scribe for :: Jessica
== END 2017-12-12 06:52 | disposition home or self-care (01) ==
LOC: ER 04:31
DX: R12 Heartburn (principal); R10.9 Unspecified abdominal pain; T36.4X5A Adverse effect of tetracyclines, initial encounter; J06.9 Acute upper respiratory infection, unspecified; F17.200 Nicotine dependence, unspecified, uncomplicated; F12.10 Cannabis abuse, uncomplicated; J45.909 Unspecified asthma, uncomplicated; R10.816 Epigastric abdominal tenderness
CPT/HCPCS: 99281

== ENCOUNTER 2018-02-07 02:30 | Emergency (ER) | payer SELFPAY ==
[2018-02-07] MEDS ORDERED: ONDANSETRON HCL INJ/PF 4 MG/2 ML SDV IV ONE (03:15)
[2018-02-07] MEDS ORDERED: NORMAL SALINE 1000 ML 1,000 ML IV ONE (03:15)
--- NOTE | 2018-02-07 03:22 | ER Document Report ---
ED GI/ - General Chief Complaint: Abdominal Pain Stated Complaint: ABDOMINAL PAIN Time Seen by Provider: 02/07/18 02:50 Notes: Patient is a 32-year-old female presenting to the emergency department complaining of right upper quadrant abdominal pain starting today. Patient states on Thursday she ate [employer] and had diarrhea 3 episodes a day until Thursday. Then states for the last 2 days has not had a bowel movement. Today states she started with right upper quadrant abdominal pain. Patient denies any vomiting or fever, denies dysuria or vaginal discharge. Patient does admit to being nauseous. Patient states last menstrual period was 06/18/2017. Patient states she has PCOS and her menstrual cycles are irregular. Patient denies chest pain, shortness of breath, URI symptoms. Past medical history: PCO S, GERD Medications, none Allergies, none Surgical history: None Patient admits to occasional EtOH use, admits to cigarette smoking, admits to marijuana use. TRAVEL OUTSIDE OF THE [place] IN LAST 30 DAYS: No - Related Data Allergies/Adverse Reactions: No Known Allergies Allergy (Verified 06/06/17 03:09) Past Medical History - General Information source: Patient - Social History Smoking Status: Current Every Day Smoker Lives with: Family Family History: DM, Hyperlipidemia, Hypertension, Malignancy Pulmonary Medical History: Reports: Hx Asthma, Hx Bronchitis, Hx Pneumonia Renal/ Medical History: Reports: Hx Ovarian Cysts. Denies: Hx Peritoneal Dialysis GI Medical History: Reports: Hx Gastroesophageal Reflux Disease Psychiatric Medical History: Reports: Hx Depression - anxiety - Immunizations Immunizations up to date: Yes Hx Diphtheria, Pertussis, Tetanus Vaccination: Yes Review of Systems - Review of Systems Constitutional: See HPI EENT: See HPI Cardiovascular: See HPI Respiratory: See HPI Gastrointestinal: See HPI Genitourinary: See HPI Female Genitourinary: See HPI Musculoskeletal: No symptoms reported Skin: No symptoms reported Hematologic/Lymphatic: No symptoms reported Neurological/Psychological: No symptoms reported Physical Exam - Vital signs Vitals: Temp Pulse Resp BP Pulse Ox 98.4 F 71 18 131/81 H 96 02/07/18 02:47 02/07/18 02:47 02/07/18 02:47 02/07/18 02:47 02/07/18 02:47 - Notes Notes: GENERAL: Alert, interacts well. No acute distress. HEAD: Normocephalic, atraumatic. EYES: Pupils equal, round, and reactive to light. Extraocular movements intact. ENT: Oral mucosa moist, tongue midline. NECK: Full range of motion. Supple. Trachea midline. LUNGS: Clear to auscultation bilaterally, no wheezes, rales, or rhonchi. No respiratory distress. HEART: Regular rate and rhythm. No murmur ABDOMEN: Soft, Non-distended. Bowel sounds present in all 4 quadrants. Positive Sloan sign, no McBurney's point tenderness. No left lower quadrant pain, no left upper quadrant pain. EXTREMITIES: Moves all 4 extremities spontaneously. No edema, normal radial and dorsalis pedis pulses bilaterally. No cyanosis. BACK: no cervical, thoracic, lumbar midline tenderness. No saddle anesthesia, normal distal neurovascular exam. No CVA tenderness bilaterally NEUROLOGICAL: Alert and oriented x3. Normal speech. cranial nerves II through XII grossly intact PSYCH: Normal affect, normal mood. SKIN: Warm, dry, normal turgor. No rashes or lesions noted. Course - Re-evaluation Re-evalutation: 02/07/18 05:53 Patient's ultrasound results show no signs of cholelithiasis or cholecystitis. Patient labs also shows no signs of leukocytosis or urinary tract infection. Upon abdominal reexamination patient states she no longer has any pain and she no longer feels nauseated. Discussed with patient need for follow-up with primary care in the next 24-48 hours. Will discharge home with antinausea medications. - Vital Signs Vital signs: Temp Pulse Resp BP Pulse Ox 98.4 F 71 18 131/81 H 96 02/07/18 02:47 02/07/18 02:47 02/07/18 02:47 02/07/18 02:47 02/07/18 02:47 - Laboratory Result Diagrams: 02/07/18 03:56 02/07/18 03:56 Laboratory results interpreted by me: 02/07/18 02/07/18 02/07/18 03:56 03:56 04:26 Seg Neutrophils % 38.6 L Lymphocytes % 50.0 H Absolute Lymphocytes 4.8 H Chloride 108 H Glucose 121 H Urine Urobilinogen 2.0 H Discharge - Discharge Clinical Impression: Nausea Abdominal pain Qualifiers: Abdominal location: right upper quadrant Qualified Code(s): R10.11 - Right upper quadrant pain Condition: Stable Disposition: HOME, SELF-CARE Instructions: Abdominal Pain ([facility]), Antinausea Medication ([facility]) Additional Instructions: As we discussed your ultrasound shows no signs of stones in your gallbladder. I am going to send you home with antinausea medication. Please take as prescribed. Please return to the emergency room for any other worsening symptoms. Prescriptions: Ondansetron [Zofran Odt 4 mg Tablet] 1 - 2 tab PO Q4H PRN #15 tab.rapdis PRN Reason: For Nausea/Vomiting Referrals: VIRGIE MILTON MD [Primary Care Provider] - Follow up as needed
--- NOTE | 2018-02-07 04:04 | RADIOLOGY REPORT (SQ) ---
EXAM DESCRIPTION: US ABDOMEN LIMITED COMPLETED DATE/TME: 02/07/2018 03:15 CLINICAL HISTORY: 32 years, Female, RUQ pain COMPARISON: None. TECHNIQUE: Transverse and longitudinal sonographic images of the right upper quadrant LIMITATIONS: None. FINDINGS: Echogenic appearance to the liver consistent with fatty infiltrative change. The gallbladder is contracted. Negative sonographic Sloan sign. No definitive gallbladder wall thickening, gallstones, or pericholecystic fluid. No free fluid in the right upper quadrant. The visualized right kidney is unremarkable. The visualized portions of the pancreas is unremarkable. IMPRESSION: Fatty infiltrative change to the liver. Remainder unremarkable. 2010 [employer]- All Rights Reserved
[2018-02-07 04:20] LABS: ABSOLUTE BASOPHILS # (AUTO) 0.1 10^3/uL (0.0-0.2); ABSOLUTE LYMPHOCYTES (AUTO) 4.8 10^3/uL (0.5-4.7); ABSOLUTE NEUT (AUTO) 3.7 10^3/uL (1.7-8.2); BASOPHILS % (AUTO) 0.9 % (0-2); MEAN CORPUSCULAR VOLUME 82 fl (80-97); TOTAL CELLS COUNTED % (AUTO) 100 %
[2018-02-07 04:31] LABS: ALANINE AMINOTRANSFERASE 36 U/L (9-52); ALBUMIN 3.9 g/dL (3.5-5.0); ALKALINE PHOSPHATASE 83 U/L (38-126); ANION GAP 10 (5-19); ASPARTATE AMINO TRANSFERASE 27 U/L (14-36); BILIRUBIN,DIRECT 0.2 mg/dL (0.0-0.4); BILIRUBIN,TOTAL 0.5 mg/dL (0.2-1.3); BLOOD UREA NITROGEN 15 mg/dL (7-20); CALCIUM 9.4 mg/dL (8.4-10.2); CARBON DIOXIDE 24 mmol/L (22-30); CHLORIDE 108 mmol/L (98-107); GLUCOSE 121 mg/dL (75-110); LIPASE 109.2 U/L (23-300); POTASSIUM 4.3 mmol/L (3.6-5.0); SODIUM 141.9 mmol/L (137-145)
[2018-02-07 04:43] LABS: ABSOLUTE EOSINOPHILS # (AUTO) 0.4 10^3/uL (0.0-0.6); ABSOLUTE MONOCYTES (AUTO) 0.7 10^3/uL (0.1-1.4); EOSINOPHILS % (AUTO) 3.7 % (0-6); HEMATOCRIT 41.3 % (36.0-47.0); HEMOGLOBIN 14.9 g/dL (12.0-15.5); MEAN CORPUSCULAR HEMOGLOBIN 29.6 pg (27.0-33.4); MONOCYTES % (AUTO) 6.8 % (3-13); PLATELET COUNT 255 10^3/uL (150-450); RED BLOOD COUNT 5.02 10^6/uL (3.72-5.28); SEGMENTED NEUTROPHILS % (AUTO) 38.6 % (42-78); WHITE BLOOD COUNT 9.7 10^3/uL (4.0-10.5)
[2018-02-07 05:36] LABS: APPEARANCE,URINE CLEAR; BILIRUBIN,URINE NEGATIVE (NEGATIVE); COLOR,URINE YELLOW; GLUCOSE, URINE NEGATIVE (NEGATIVE); KETONES,URINE NEGATIVE (NEGATIVE); LEUKOCYTE ESTERASE,URINE NEGATIVE (NEGATIVE); NITRITE,URINE NEGATIVE (NEGATIVE); PROTEIN,URINE NEGATIVE (NEGATIVE); URINE SPECIFIC GRAVITY 1.029
[2018-02-07 06:21] VITALS: BP 123/90
== END 2018-02-07 06:19 | disposition home or self-care (01) ==
LOC: ER 02:30
DX: R10.11 Right upper quadrant pain (principal); R11.0 Nausea; F17.200 Nicotine dependence, unspecified, uncomplicated
CPT/HCPCS: 99284; 96361; 96374; 36415; 83690; 85025; 81025; 80053; 81001; 76705; J2405; J7030

== ENCOUNTER 2018-03-15 11:37 | Emergency (ER) | payer SELFPAY ==
[2018-03-15 11:42] VITALS: BP 134/79
[2018-03-15] MEDS ORDERED: CIPROFLOXACIN HCL/DEXAMETH OTIC DROP 7.5 ML AS ONE (12:06)
--- NOTE | 2018-03-15 12:13 | ER Document Report ---
HPI - HPI Time Seen by Provider: 03/15/18 11:53 Pain Level: 3 Notes: Patient is an otherwise healthy 32-year-old female who presents with bilateral ear pain. Patient reports she was trying to expand the cages in her ears when she began having pain on the external portion of her ears. Patient states the pain then moved inside of her ears bilaterally. Patient denies any fevers. - REPRODUCTIVE Reproductive: DENIES: : Past Medical History - General Information source: Patient - Social History Smoking Status: Current Some Day Smoker Frequency of alcohol use: None Drug Abuse: None Family History: DM, Hyperlipidemia, Hypertension, Malignancy Pulmonary Medical History: Reports: Hx Asthma, Hx Bronchitis, Hx Pneumonia Renal/ Medical History: Reports: Hx Ovarian Cysts. Denies: Hx Peritoneal Dialysis GI Medical History: Reports: Hx Gastroesophageal Reflux Disease Psychiatric Medical History: Reports: Hx Depression - anxiety - Immunizations Immunizations up to date: Yes Hx Diphtheria, Pertussis, Tetanus Vaccination: Yes Vertical Provider Document - CONSTITUTIONAL Notes: PHYSICAL EXAMINATION: GENERAL: Well-appearing, well-nourished and in no acute distress. HEAD: Atraumatic, normocephalic. EYES: Pupils equal round extraocular movements intact, conjunctiva are normal. ENT: Nares patent, erythema and swelling noted to right ear canal. Tympanic membranes bilaterally intact and light pink. NECK: Normal range of motion LUNGS: No respiratory distress Musculoskeletal: Normal range of motion NEUROLOGICAL: Normal speech, normal gait. PSYCH: Normal mood, normal affect. SKIN: Warm, Dry, normal turgor, no rashes or lesions noted. - INFECTION CONTROL TRAVEL OUTSIDE OF THE [place] IN LAST 30 DAYS: No Course - Re-evaluation Re-evalutation: Examination consistent with otitis externa. Patient placed on Ciprodex and discharged home. - Vital Signs Vital signs: Temp Pulse Resp BP Pulse Ox 98.8 F 86 18 134/79 H 97 03/15/18 11:40 03/15/18 11:40 03/15/18 11:40 03/15/18 11:40 03/15/18 11:40 Discharge - Discharge Clinical Impression: Otitis externa Qualifiers: Otitis externa type: unspecified type Chronicity: acute Laterality: right Qualified Code(s): H60.501 - Unspecified acute noninfective otitis externa, right ear Condition: Stable Disposition: HOME, SELF-CARE Additional Instructions: Otitis Externa You have otitis externa -- an infection of the outer ear canal. This can be very painful. It's sometimes called "swimmer's ear," because it often occurs after prolonged water exposure. Many things, such as earwax and dirt in the ear, can contribute to it. The usual treatment is antibiotic/antiinflammatory ear drops. Occasionally , a wick will be placed in the ear to draw in the medicine. If the infection is severe, an oral antibiotic may be prescribed. Pain medication is often needed. Avoid getting water in the ear. Outer ear infections often take longer to heal than you might expect. Some tenderness and ache in the ear may persist for about two weeks. See your physician if you fail to improve as expected. Call the doctor at once if you develop fever, increasing swelling (particularly if it makes your ear "poke out"), severe headache, stiff neck, or decreased hearing. Please use the Ciprodex drops as directed. Please 4 drops into the right ear twice daily for the next 7 days. Continue to take either ibuprofen or Tylenol for pain and discomfort. Forms: Return to Work Referrals: VIRGIE MILTON MD [NO LOCAL MD] - Follow up as needed
== END 2018-03-15 12:29 | disposition home or self-care (01) ==
LOC: ER 11:37
DX: H60.501 Unspecified acute noninfective otitis externa, right ear (principal); H92.03 Otalgia, bilateral; F17.200 Nicotine dependence, unspecified, uncomplicated
CPT/HCPCS: 99283; J3490

== ENCOUNTER 2018-04-03 13:18 | Emergency (ER) | payer SELFPAY ==
[2018-04-03 13:54] VITALS: BP 120/79
== END 2018-04-03 14:07 | disposition left against medical advice (07) ==
LOC: ER 13:18
DX: Z53.21 Procedure and treatment not carried out due to patient leaving prior to being seen by health care provider (principal); R10.30 Lower abdominal pain, unspecified

== ENCOUNTER 2018-04-04 05:17 | Emergency (ER) | payer SELFPAY ==
--- NOTE | 2018-04-04 06:34 | ER Document Report ---
ED GI/ - General Chief Complaint: Pelvic Pain Stated Complaint: PELVIC PAIN Time Seen by Provider: 04/04/18 06:12 Notes: 32-year-old female presents emergency department with some right sided pelvic pain. It began around [place] briseida. Incidentally she did help her family move a Bowflex at that time. Patient has had no nausea no vomiting. No diarrhea. She is no fever no chills. She does complain of some mild dysuria and burning with urination but denies vaginal discharge. She states the pain is sharp and achy is worse with movement. She denies any hematuria though. Sore throat cough. Rates the pain is severe with movement better with rest. TRAVEL OUTSIDE OF THE [place] IN LAST 30 DAYS: No - Related Data Allergies/Adverse Reactions: No Known Allergies Allergy (Verified 04/04/18 05:25) Past Medical History - Social History Smoking Status: Unknown if Ever Smoked Family History: DM, Hyperlipidemia, Hypertension, Malignancy Pulmonary Medical History: Reports: Hx Asthma, Hx Bronchitis, Hx Pneumonia Renal/ Medical History: Reports: Hx Ovarian Cysts. Denies: Hx Peritoneal Dialysis GI Medical History: Reports: Hx Gastroesophageal Reflux Disease Psychiatric Medical History: Reports: Hx Depression - anxiety - Immunizations Immunizations up to date: Yes Hx Diphtheria, Pertussis, Tetanus Vaccination: Yes Review of Systems - Review of Systems Constitutional: denies: Chills, Fever Genitourinary: denies: Burning, Dysuria Female Genitourinary: denies: , Vaginal discharge, Vaginal bleeding, Vaginal odor, Painful intercourse Musculoskeletal: denies: Back pain Neurological/Psychological: denies: Headaches -: Yes All other systems reviewed and negative Physical Exam - Vital signs Vitals: Temp Pulse Resp BP Pulse Ox 97.7 F 74 19 119/73 97 04/04/18 05:21 04/04/18 05:21 04/04/18 05:21 04/04/18 05:21 04/04/18 05:21 - Notes Notes: GENERAL_APPEARANCE: well_nourished, alert, cooperative, no_acute_distress, no_obvious_discomfort. VITALS: reviewed, see vital signs table. HEAD: no_swelling\tenderness on the head. EYES: PERRL, EOMI, conjunctiva_clear. NOSE: no_nasal_discharge. MOUTH: (-)decreased moisture. THROAT: no_throat_inflammation, no_airway_obstruction. no_lymphadenopathy NECK: supple, no_neck_tenderness, (-)thyromegaly. BACK: no_back_tenderness. ABDOMEN: normal_BS, soft, pain at right inguinal ligament_abd_tenderness, (- )guarding, (-)rebound, no_organomegaly, no_abd_masses. EXTREMITIES: good pulses in all_extremities, no_swelling\tenderness in the extremities, no_edema. SKIN: warm, dry, good_color, no_rash. MENTAL_STATUS: speech_clear, oriented_X_3, normal_affect, responds_appropriately to questions. Course - Re-evaluation Re-evalutation: 04/04/18 06:33 32-year-old female history of polycystic ovary presents to the ER complaining of some right-sided pelvic pain. She denies any vaginal discharge or bleeding. The pain on exam is more in the inguinal ligament the abdomen itself is soft and supple. There is no rebound no guarding Rovsing sign is negative obturator and psoas sign are negative. The patient seems to have discomfort when she moves her leg or anything musculoskeletal. She does complain of some dysuria will check urine for UTI. The abdomen itself is very soft and supple but if I asked her to pinpoint it with a fingertip it is right on the right inguinal ligament itself there is a strong femoral pulse there no redness no heat no other abnormalities are strong pulses noted at the right dorsalis pedis. My suspicion for a Vascular compromise is low there is no calf pain or swelling or redness or anything to suggest DVT. 04/04/18 09:[address] scan of the abdomen and pelvis was normal. No large cysts. Suspicion for torsion is low. Patient likely did pull something since the pain is right along the inguinal ligament. Nasir echevarria spoke with her at this she is comfortable going home if things do not improve or get worse she will return to the ER advised her to use noly-cce-balooti ibuprofen - Vital Signs Vital signs: Temp Pulse Resp BP Pulse Ox 97.7 F 74 19 119/73 97 04/04/18 05:21 04/04/18 05:21 04/04/18 05:21 04/04/18 05:21 04/04/18 05:21 - Laboratory Laboratory results interpreted by me: 04/04/18 06:32 Urine Urobilinogen 2.0 H Discharge - Discharge Clinical Impression: Injury of abdominal wall Qualifiers: Encounter type: initial encounter Qualified Code(s): S39.91XA - Unspecified injury of abdomen, initial encounter Condition: Good Disposition: HOME, SELF-CARE Instructions: Sprain ([facility]) Additional Instructions: Use [id number] ibuprofen 200-400 mg every 6-8 hours for pain.
[2018-04-04 07:13] LABS: APPEARANCE,URINE SLIGHTLY-CLOUDY; BILIRUBIN,URINE NEGATIVE (NEGATIVE); COLOR,URINE AMBER; GLUCOSE, URINE NEGATIVE (NEGATIVE); KETONES,URINE NEGATIVE (NEGATIVE); LEUKOCYTE ESTERASE,URINE NEGATIVE (NEGATIVE); NITRITE,URINE NEGATIVE (NEGATIVE); PROTEIN,URINE NEGATIVE (NEGATIVE); URINE SPECIFIC GRAVITY 1.028
--- NOTE | 2018-04-04 08:39 | RADIOLOGY REPORT (SQ) ---
EXAM DESCRIPTION: CT ABD/PELVIS NO ORAL OR IV COMPLETED DATE/TIME: 04/04/2018 7:40 am REASON FOR STUDY: Right lower quad pain COMPARISON: None. TECHNIQUE: CT scan of the abdomen and pelvis performed without intravenous or oral contrast. Images reviewed with lung, soft tissue, and bone windows. Reconstructed coronal and sagittal MPR images revi ewed. All images stored on PACS. All CT scanners at this facility use dose modulation, iterative reconstruction, and/or weight based d osing when appropriate to reduce radiation dose to as low as reasonably achievable (ALARA). [facility]: Dose Right [facility]: CareDose [facility]: Dose Right [facility]: Teradose 4D [facility]: Smart [employer] RADIATION DOSE: CT Rad equipment meets quality standard of care and radiation dose reduction techniq ues were employed. CTDIvol: 17.1 mGy. DLP: 981 mGy-cm.mGy. LIMITATIONS: None. FINDINGS: LOWER CHEST: No significant findings. No nodules or infiltrates. NON-CONTRASTED LIVER, SPLEEN, ADRENALS: Evaluation limited by lack of IV contrast. No identified sign ificant masses. PANCREAS: No masses. No peripancreatic inflammatory changes. GALLBLADDER: No identified stones by CT criteria. No inflammatory changes to suggest cholecystitis. RIGHT KIDNEY AND URETER: No solid masses. No significant calcification. No hydronephrosis or hydroure ter. LEFT KIDNEY AND URETER: No solid masses. No significant calcification. No hydronephrosis or hydrouret er. AORTA AND RETROPERITONEUM: No aneurysm. No retroperitoneal masses or adenopathy. BOWEL AND PERITONEAL CAVITY: No obvious masses or inflammatory changes. No free fluid. APPENDIX: Normal. PELVIS, BLADDER, AND ABDOMINAL WALL:Pelvic calcified phleboliths. Bladder unremarkable. No mass or fluid. No abdominal wall mass or hernia. BONES: No significant findings. OTHER: No other significant finding. IMPRESSION: NO SIGNIFICANT OR ACUTE PROCESS IN THE ABDOMEN OR PELVIS. TECHNICAL DOCUMENTATION: JOB ID: [id number] Quality ID # [id number]: Final reports with documentation of one or more dose reduction techniques (e.g., Au tomated exposure control, adjustment of the mA and/or kV according to patient size, use of iterative reconstruction technique) 2010 [employer]- All Rights Reserved Reading location - IP/workstation name: [email or web address]
[2018-04-04 09:37] VITALS: BP 116/60
== END 2018-04-04 09:35 | disposition home or self-care (01) ==
LOC: ER 05:17
DX: S39.91XA Unspecified injury of abdomen, initial encounter (principal); R10.2 Pelvic and perineal pain; R30.0 Dysuria; X50.0XXA Overexertion from strenuous movement or load, initial encounter; Y92.009 Unspecified place in unspecified non-institutional (private) residence as the place of occurrence of the external cause
CPT/HCPCS: 74176; 81001; 81025; 99284

== ENCOUNTER 2018-05-02 03:55 | Emergency (ER) | payer SELFPAY ==
[2018-05-02] MEDS ORDERED: TETRACAINE HCL 0.5% OPH SOLN 4 ML OD ONE (04:42)
--- NOTE | 2018-05-02 04:45 | ER Document Report ---
ED General - General Chief Complaint: Eye Problem Stated Complaint: RIGHT EYE INJURY/SWELLING Time Seen by Provider: 05/02/18 04:40 Primary Care Provider: NADEGE BERGMAN MD [ACTIVE STAFF] - 05/03/18 Notes: Patient is a 32-year-old female who presents with complaint of pain in the right eye. She says that she was playing video game and went to rub her eye because she felt something may have one in her eye. After she rubbed her eyes she immediately had pain in her eye and now feels like there is something in her eye. She does not wear contacts. She says that the pain is starting to improve some but she still says it is irritated some. No other complaints at this time. No other recent trauma to the eye. Strip surgeries to the eye. TRAVEL OUTSIDE OF THE [place] IN LAST 30 DAYS: No - Related Data Allergies/Adverse Reactions: No Known Allergies Allergy (Verified 04/04/18 05:25) Past Medical History - Social History Smoking Status: Current Every Day Smoker Chew tobacco use (# tins/day): No Frequency of alcohol use: None Drug Abuse: Marijuana Family History: DM, Hyperlipidemia, Hypertension, Malignancy Patient has suicidal ideation: No Patient has homicidal ideation: No Pulmonary Medical History: Reports: Hx Asthma, Hx Bronchitis, Hx Pneumonia Renal/ Medical History: Reports: Hx Ovarian Cysts. Denies: Hx Peritoneal Dialysis GI Medical History: Reports: Hx Gastroesophageal Reflux Disease Psychiatric Medical History: Reports: Hx Depression - anxiety - Immunizations Immunizations up to date: Yes Hx Diphtheria, Pertussis, Tetanus Vaccination: Yes Review of Systems - Review of Systems Notes: My Normal Review Basic REVIEW OF SYSTEMS: CONSTITUTIONAL : Denies fever, chills, or sweats. Denies recent illness. EENT: Right sided eye pain NEUROLOGICAL: Denies altered mental status or loss of consciousness. Denies headache. ALL OTHER SYSTEMS REVIEWED AND NEGATIVE. Physical Exam - Vital signs Vitals: Temp Pulse Resp BP Pulse Ox 97.8 F 77 16 132/91 H 99 05/02/18 04:00 05/02/18 04:00 05/02/18 04:00 05/02/18 04:00 05/02/18 04:00 - Notes Notes: General Appearance: Well nourished, alert, cooperative, no acute distress, no obvious discomfort. Well appearing Vitals: reviewed, See vital signs table. Head: no swelling or tenderness to the head Eyes: PERRL, EOMI, very faint erythema to conjunctiva of right eye. No foreign body seen on visual examination. No foreign body seen underneath eyelids. He is she has good extraocular motion without pain. I did do worsening staining of the eye. Very small corneal abrasion was seen at approximately 9 o'clock position near the limbus. No hyphema or hypopyon Neuro: speech clear, oriented x 3, normal affect, responds appropriately to questions. Course - Re-evaluation Re-evalutation: 05/02/18 07:03 Patient is a small corneal abrasion. I suspect this probably was causing irritation or I. I will place her on erythromycin ointment. Informed her that she should start feeling improvement in the next 24 hours. Informed her if she is not feeling better by midthursday then she should call the [facility] for close reevaluation. I gave her the phone number to Dr. Bergman. Patient encouraged to return to ER if she has worsening pain, redness or swelling to her eye, or if she has further concerns. Patient agrees with plan will be discharged home. Dictation of this chart was performed using voice recognition software; therefore, there may be some unintended grammatical errors. - Vital Signs Vital signs: Temp Pulse Resp BP Pulse Ox 97.9 F 80 16 136/88 H 99 05/02/18 05:45 05/02/18 05:45 05/02/18 05:45 05/02/18 05:45 05/02/18 05:45 Discharge - Discharge Clinical Impression: Corneal abrasion, right Condition: Good Disposition: HOME, SELF-CARE Additional Instructions: You have what appears to be small abrasion on your eye. Please see his eye ointment as prescribed. please follow up with , eye doctor, if you are still having irritation to your eye by Thursday. Please return to the ER immediately if you develop increasing pain to the eye, increasing redness, fevers, or feel unwell. Prescriptions: Erythromycin Base [Erythromycin Oph 1 Gm Oint Ud] 1 applic OD ASDIR PRN #1 tube PRN Reason: Referrals: NADEGE BERGMAN MD [ACTIVE STAFF] - 05/03/18
[2018-05-02] MEDS ORDERED: ERYTHROMYCIN 0.5% OPH OINTMENT 3.5 GM (ER DISP) OD PRN (04:51)
[2018-05-02 05:47] VITALS: BP 136/88
== END 2018-05-02 05:45 | disposition home or self-care (01) ==
LOC: ER 03:55
DX: S05.01XA Injury of conjunctiva and corneal abrasion without foreign body, right eye, initial encounter (principal); H57.11 Ocular pain, right eye; X58.XXXA Exposure to other specified factors, initial encounter; F17.200 Nicotine dependence, unspecified, uncomplicated; J45.909 Unspecified asthma, uncomplicated
CPT/HCPCS: 99283; J3490

== ENCOUNTER 2018-06-03 13:56 | Emergency (ER) | payer SELFPAY ==
[2018-06-03 14:25] VITALS: BP 142/78
--- NOTE | 2018-06-03 15:12 | ER Document Report ---
HPI - HPI Time Seen by Provider: 06/03/18 15:02 Pain Level: 2 Notes: Patient is a 32-year-old female with no significant past medical history aside from allergies who presents the emergency department complaining of runny nose, stuffy nose, watery eyes, and sneezing over the last several days. Patient has been trying [id number]-aop-[id number] allergy medicine with minimal relief. She is eating and drinking without difficulties. Denies drug allergies. No other concerns or complaints. Denies any headache, fever, neck pain, sore throat, chest pain, palpitations, syncope, cough, shortness of breath, wheeze, dyspnea, abdominal pain, nausea/vomiting/diarrhea, urinary retention, dysuria, hematuria, or rash. - ROS Systems Reviewed and Negative: Yes All other systems reviewed and negative - RESPIRATORY Respiratory: REPORTS: Coughing - REPRODUCTIVE Reproductive: DENIES: : Past Medical History - Social History Smoking Status: Never Smoker Family History: DM, Hyperlipidemia, Hypertension, Malignancy Patient has suicidal ideation: No Patient has homicidal ideation: No Pulmonary Medical History: Reports: Hx Asthma, Hx Bronchitis, Hx Pneumonia Renal/ Medical History: Reports: Hx Ovarian Cysts. Denies: Hx Peritoneal Dialysis GI Medical History: Reports: Hx Gastroesophageal Reflux Disease Psychiatric Medical History: Reports: Hx Depression - anxiety - Immunizations Immunizations up to date: Yes Hx Diphtheria, Pertussis, Tetanus Vaccination: Yes Vertical Provider Document - CONSTITUTIONAL Agree With Documented VS: Yes Notes: PHYSICAL EXAMINATION: GENERAL: Well-appearing, well-nourished and in no acute distress. A&Ox4. Answers questions appropriately. Moves comfortably w/o notable distress HEAD: Atraumatic, normocephalic. EYES: Pupils equal round and reactive to light, extraocular movements intact, sclera anicteric, conjunctiva are normal. ENT: EAC clear b/l. TM's intact b/l without erythema, fluid, or perforation. Nares patent and with clear discharge, + cobblestoning. oropharynx no erythema without exudates. No tonsilar hypertrophy without erythema or exudate. No palatine shift. Uvula midline. No tongue protrusion. No drooling, hoarseness, or airway compromise. Moist mucous membranes. No sinus tenderness. NECK: Normal range of motion, supple without lymphadenopathy. No rigidity/meningismus. LUNGS: Breath sounds clear to auscultation bilaterally and equal. No wheezes rales or rhonchi. No retractions HEART: Regular rate and rhythm without murmurs, rubs, gallops. NEUROLOGICAL: Normal speech, normal gait. PSYCH: Normal mood, normal affect. SKIN: Warm, Dry, normal turgor, no rashes or lesions noted. - INFECTION CONTROL TRAVEL OUTSIDE OF THE [place] IN LAST 30 DAYS: No Course - Re-evaluation Re-evalutation: 06/03/18 15:09 Patient is an afebrile, well-hydrated, 32-year-old female who presents to the emergency department with what sounds to be allergic rhinitis. Vitals are acceptable without significant tachycardia, tachypnea, or hypoxia. PE is otherwise unremarkable. Patient's lungs are clear to auscultation bilaterally. She is nontoxic-appearing and is tolerating p.o. without difficulty. No labs or imaging warranted at this time. Low suspicion for any meningitis, sepsis, per itonsillar/pharyngeal abscess, respiratory compromise, Edward's, or other emergent systemic condition at this time. Patient is aware this condition can change from initial presentation and she needs to monitor symptoms closely. Conservative measures otherwise for symptoms. Recheck with your PCM in 3-5 days. Return to the ED with any worsening/concerning symptoms otherwise as reviewed in discharge. Patient is in agreement. - Vital Signs Vital signs: Temp Pulse Resp BP Pulse Ox 97.9 F 80 18 142/78 H 97 06/03/18 14:24 06/03/18 14:24 06/03/18 14:24 06/03/18 14:24 06/03/18 14:24 Discharge - Discharge Clinical Impression: Allergic rhinitis Qualifiers: Allergic rhinitis trigger: unspecified Allergic rhinitis seasonality: unspecified Qualified Code(s): J30.9 - Allergic rhinitis, unspecified Condition: Stable Disposition: HOME, SELF-CARE Instructions: Nasal Corticosteroid Inhaler ([facility]), OTC Antihistamines ([facility]) Additional Instructions: Maintain adequate fluid intake Take meds as directed tylenol/ibuprofen as needed over the counter cold medication as needed for symptoms Humidified air may help Wash your hands regularly Wear a mask when coughing F/u: with your PCM in 3-5 days for a recheck Return to the ED with any fever, worsening pain, chest pain, palpitations, syncope, worsening SHARMA, neck pain/stiffness, shortness of breath, wheezing, drooling, trouble swallowing/breathing, abdominal pain, n/v/d, rash, or worsening/concerning symptoms otherwise. Prescriptions: Fluticasone Propionate [Flonase Nasal [place] 50 Mcg/[place] 16 gm] 1 spray NASL Q12 #1 inhaler Forms: Elevated Blood Pressure Referrals: [facility] [Provider Group] - Follow up as needed
== END 2018-06-03 15:21 | disposition home or self-care (01) ==
LOC: ER 13:56
DX: J30.9 Allergic rhinitis, unspecified (principal)
CPT/HCPCS: 99283

== ENCOUNTER 2018-06-17 06:38 | Emergency (ER) | payer SELFPAY ==
--- NOTE | 2018-06-17 08:06 | EKG REPORT ---
SEVERITY:- BORDERLINE ECG - SINUS RHYTHM PROBABLE LEFT ATRIAL ABNORMALITY : Confirmed by: Torsten Rhodes MD 17-Jun-2018 08:06:07
--- NOTE | 2018-06-17 08:09 | ER Document Report ---
ED General - General Chief Complaint: Chest Pain Stated Complaint: CHEST PAIN Time Seen by Provider: 06/17/18 08:08 Primary Care Provider: IBLL MERRITT MD [ACTIVE STAFF] - Follow up in 3-5 days VIRGIE MILTON MD [Primary Care Provider] - Follow up as needed Mode of Arrival: Ambulatory Information source: Patient TRAVEL OUTSIDE OF THE [place] IN LAST 30 DAYS: No - HPI Notes: 32-year-old -[place] female with a history of anxiety, seasonal allergies and GERD presents via private car with complaints of substernal chest pain that is worse with movement or different positioning that has been occurring for the last 4 days, states she took ibuprofen with some relief. Denies any recent trauma. Pain is described as dull and achy. Patient states her chest pain is most notable in the morning when she gets up from a flat p osition. some times pain will shoot into her arm. Her last menstrual cycle was 2 months ago. Patient is supposed to be taking proton pump inhibitor for her GERD but does not have a primary care provider and has not been prescribed any medications recently per patient. Denies fevers, chills, palpitations, shortness of breath, dyspnea, nausea, vomiting, diarrhea, abdominal pain, hematuria,blurred vision, double vision, loss of vision, speech changes, LH, dizziness, syncope, headaches, wheezing, ST, URI, neck pain, weakness, bowel or bladder dysfunction, saddle anesthesia, numbness or tingling in bilateral upper or lower extremities equally, muscle paralysis, weakness in bilateral upper or lower extremities equally or rash. - Related Data Allergies/Adverse Reactions: No Known Allergies Allergy (Verified 06/03/18 13:59) Past Medical History - General Information source: Patient - Social History Smoking Status: Never Smoker Family History: DM, Hyperlipidemia, Hypertension, Malignancy Pulmonary Medical History: Reports: Hx Asthma, Hx Bronchitis, Hx Pneumonia Renal/ Medical History: Reports: Hx Ovarian Cysts. Denies: Hx Peritoneal Dialysis GI Medical History: Reports: Hx Gastroesophageal Reflux Disease Psychiatric Medical History: Reports: Hx Depression - anxiety - Immunizations Immunizations up to date: Yes Hx Diphtheria, Pertussis, Tetanus Vaccination: Yes Review of Systems - Review of Systems Constitutional: No symptoms reported EENT: No symptoms reported Cardiovascular: See HPI Respiratory: No symptoms reported Gastrointestinal: No symptoms reported Genitourinary: No symptoms reported Female Genitourinary: No symptoms reported Musculoskeletal: No symptoms reported Skin: No symptoms reported Hematologic/Lymphatic: No symptoms reported Neurological/Psychological: No symptoms reported Physical Exam - Vital signs Vitals: Temp Pulse Resp BP Pulse Ox 97.7 F 71 15 130/86 H 100 06/17/18 06:58 06/17/18 06:58 06/17/18 06:58 06/17/18 06:58 06/17/18 06:58 - Notes Notes: PHYSICAL EXAMINATION: GENERAL: Well-appearing, well-nourished and in no acute distress. HEAD: Atraumatic, normocephalic. EYES: Pupils equal round and reactive to light, extraocular movements intact, conjunctiva are normal. ENT: Nares patent, oropharynx clear without exudates. Moist mucous membranes. NECK: Normal range of motion, supple without lymphadenopathy LUNGS: Breath sounds clear to auscultation bilaterally and equal. No wheezes rales or rhonchi. HEART: Regular rate and rhythm without murmurs. Able to reproduce chest pain that brought patient to ED on palpation of anterior chest. ABDOMEN: Soft, nontender, nondistended abdomen. No guarding, no rebound. No masses appreciated. No CVA tenderness bilaterally Female : deferred Musculoskeletal: Normal range of motion, no pitting or edema. No cyanosis. NEUROLOGICAL: Cranial nerves grossly intact. Normal speech, normal gait. Nor mal sensory, motor exams PSYCH: Normal mood, normal affect. SKIN: Warm, Dry, normal turgor, no rashes or lesions noted. 22-like and then on the other half of a flight Course - Re-evaluation Re-evalutation: 06/17/18 09:18 32-year-old female afebrile vitals stable no distress for evaluation of chest pain for the last 4 days that is worse with movement or laying down, did find relief with ibuprofen, patient is noncompliant with taking acid reducing medication. CBC CMP unremarkable, since patient has had this chest pain for the last 4 days, troponin was drawn and was within normal range, no need to repeat it since this patient has experiencing chest pain for the last 4 days. Urinalysis negative for any acute findings. Chest x-ray was unremarkable per radiology and white radiated for any acute findings. patient did have relief with taking GI cocktail states her chest pain has resolved. Her vitals have remained stable, no distress and patient remains afebrile. In reevaluation patient sleeping, states she feels much better. Discussed with patient that she needs to follow-up with gastroenterology will start her on a PPI, reduce acidic foods, avoid eating at least 2 hours before bedtime, also to alternate between Tylenol or ibuprofen since she does have costochondritis. After performing a Medical Screening Examination, I estimate there is LOW risk for RUPTURED ESOPHAGUS, PNEUMOTHORAX, PULMONARY EMBOLISM, ACUTE CORONARY SYNDROME, OR THORACIC AORTIC DISSECTION, thus I consider the discharge disposition reas onable. I have reevaluated this patient multiple times and no significant life threatening changes are noted. The patient and I have discussed the diagnosis and risks, and we agree with discharging home with close follow-up. We also discussed returning to the Emergency Department immediately if new or worsening symptoms occur. We have discussed the symptoms which are most concerning (e.g., bloody sputum, worsening pain or shortness of breath) that necessitate immediate return. - Vital Signs Vital signs: Temp Pulse Resp BP Pulse Ox 97.7 F 71 15 130/86 H 100 06/17/18 06:58 06/17/18 06:58 06/17/18 06:58 06/17/18 06:58 06/17/18 06:58 - Laboratory Result Diagrams: 06/17/18 08:50 06/17/18 08:50 Laboratory results interpreted by me: 06/17/18 08:50 Seg Neutrophils % 38.0 L Lymphocytes % 50.2 H Discharge - Discharge Clinical Impression: GERD (gastroesophageal reflux disease), Costochondritis Condition: Stable Disposition: HOME, SELF-CARE Instructions: Chest Pain of Unclear Cause ([facility]), Prilosec (Acid Pump Inhibitor) ([facility]), Reflux Disease (GERD) ([facility]), Antacid Therapy ([facility]), Chest Wall Pain ( [facility]), Costochondritis ([facility]) Additional Instructions: Your cardiac enzymes in which were negative, your EKG and chest x-ray were all normal, your laboratory results were all normal. You were given a GI cocktail to reduce the chest pain which has reduced it. We will send you home on protein pump inhibitor which would reduce the amount of gastric acid that you make, to take daily. Avoid any spicy foods, night 2 hours before going to bed, sleeping in more upright position, will refer you to a ball winder as well as a primary care provider. I was also able to reproduce your chest pain palpating on your chest which is a musculoskeletal issue. Return immediately for any new or worsening symptoms. Follow up with primary care provider, call tomorrow to make followup appointment. Prescriptions: Omeprazole 20 mg PO DAILY #20 tablet.dr Referrals: VIRGIE MILTON MD [Primary Care Provider] - Follow up as needed BILL MERRITT MD [ACTIVE STAFF] - Follow up in 3-5 days
[2018-06-17] MEDS ORDERED: MAG HYDROX/AL HYDROX/SIMETH SUSP 30 ML UDCUP PO ONE (08:23)
[2018-06-17] MEDS ORDERED: METOCLOPRAMIDE HCL ORAL SOLN 10 MG/10 ML UDCUP PO ONE (08:23)
--- NOTE | 2018-06-17 09:07 | RADIOLOGY REPORT (SQ) ---
EXAM DESCRIPTION: CHEST 2 VIEWS COMPLETED DATE/TIME: 06/17/2018 8:54 am REASON FOR STUDY: cp COMPARISON: 05/30/2017 EXAM PARAMETERS: NUMBER OF VIEWS: two views TECHNIQUE: Digital Frontal and Lateral radiographic views of the chest acquired. RADIATION DOSE: NA LIMITATIONS: none FINDINGS: LUNGS AND PLEURA: No opacities, masses or pneumothorax. No pleural effusion. MEDIASTINUM AND HILAR STRUCTURES: No masses or contour abnormalities. HEART AND VASCULAR STRUCTURES: Heart normal size. No evidence for failure. BONES: No acute findings. HARDWARE: None in the chest. OTHER: No other significant finding. IMPRESSION: NO ACUTE RADIOGRAPHIC FINDING IN THE CHEST. TECHNICAL DOCUMENTATION: JOB ID: [id number] [employer]- All Rights Reserved Reading location - IP/workstation name: [email or web address]
[2018-06-17 09:14] LABS: ABSOLUTE BASOPHILS # (AUTO) 0.1 10^3/uL (0.0-0.2); ABSOLUTE EOSINOPHILS # (AUTO) 0.3 10^3/uL (0.0-0.6); ABSOLUTE LYMPHOCYTES (AUTO) 4.3 10^3/uL (0.5-4.7); ABSOLUTE MONOCYTES (AUTO) 0.6 10^3/uL (0.1-1.4); ABSOLUTE NEUT (AUTO) 3.2 10^3/uL (1.7-8.2); EOSINOPHILS % (AUTO) 3.7 % (0-6); HEMATOCRIT 39.8 % (36.0-47.0); HEMOGLOBIN 14.3 g/dL (12.0-15.5); LYMPHOCYTES % (AUTO) 50.2 % (13-45); MEAN CORPUSCULAR HEMOGLOBIN 29.2 pg (27.0-33.4); MEAN CORPUSCULAR VOLUME 81 fl (80-97); MONOCYTES % (AUTO) 7.1 % (3-13); PLATELET COUNT 269 10^3/uL (150-450); RED BLOOD COUNT 4.91 10^6/uL (3.72-5.28); TOTAL CELLS COUNTED % (AUTO) 100 %; WHITE BLOOD COUNT 8.5 10^3/uL (4.0-10.5)
[2018-06-17 09:34] LABS: ALANINE AMINOTRANSFERASE 33 U/L (9-52); ALBUMIN 4.2 g/dL (3.5-5.0); ALKALINE PHOSPHATASE 96 U/L (38-126); ANION GAP 10 (5-19); ASPARTATE AMINO TRANSFERASE 22 U/L (14-36); BILIRUBIN,DIRECT 0.2 mg/dL (0.0-0.4); BILIRUBIN,TOTAL 0.5 mg/dL (0.2-1.3); BLOOD UREA NITROGEN 12 mg/dL (7-20); CALCIUM 9.6 mg/dL (8.4-10.2); CARBON DIOXIDE 26 mmol/L (22-30); CHLORIDE 103 mmol/L (98-107); GLUCOSE 106 mg/dL (75-110); POTASSIUM 4.1 mmol/L (3.6-5.0); SODIUM 138.6 mmol/L (137-145); TOTAL PROTEIN 7.1 g/dL (6.3-8.2)
[2018-06-17 09:46] LABS: APPEARANCE,URINE SLIGHTLY-CLOUDY; BILIRUBIN,URINE NEGATIVE (NEGATIVE); COLOR,URINE YELLOW; GLUCOSE, URINE NEGATIVE (NEGATIVE); KETONES,URINE NEGATIVE (NEGATIVE); LEUKOCYTE ESTERASE,URINE NEGATIVE (NEGATIVE); NITRITE,URINE NEGATIVE (NEGATIVE); PROTEIN,URINE NEGATIVE (NEGATIVE); URINE SPECIFIC GRAVITY 1.017; UROBILINOGEN,URINE NEGATIVE mg/dL (<2.0)
[2018-06-17 09:49] LABS: CREATINE KINASE MB 0.33 ng/mL (<4.55)
[2018-06-17 09:53] LABS: TROPONIN I < 0.012 ng/mL
[2018-06-17 11:36] VITALS: BP 114/69
== END 2018-06-17 11:34 | disposition home or self-care (01) ==
LOC: ER 06:38
DX: M94.0 Chondrocostal junction syndrome [Tietze] (principal); K21.9 Gastro-esophageal reflux disease without esophagitis; R07.9 Chest pain, unspecified
CPT/HCPCS: 36415; 71046; 80053; 81001; 82553; 84484; 84702; 85025; 93005; 93010; 99285

== ENCOUNTER 2018-07-17 23:53 | Emergency (ER) | payer SELFPAY ==
[2018-07-18] MEDS ORDERED: CEPHALEXIN 500 MG CAPSULE PO ONE (01:38)
[2018-07-18] MEDS ORDERED: SULFAMETHOXAZOLE/TRIMETHOPRIM 800-160 MG TABLET PO ONE (01:38)
--- NOTE | 2018-07-18 01:41 | ER Document Report ---
ED Skin Rash/Insect Bite/Abscs - General Chief Complaint: Abscess Stated Complaint: ABCESS Time Seen by Provider: 07/18/18 01:29 Primary Care Provider: VIRGIE MILTON MD [Primary Care Provider] - Follow up as needed Notes: Patient is a 32-year-old female that comes to the emergency department for chief complaint of an area on her right inner thigh, she states that initially she was seen for a nontender bump, was told it was probably a lipoma, however than behind this she started getting a tender swollen area, she states earlier today it burst open and drained, she states it still has some tenderness to the area. She denies fever chills, nausea or vomiting. She does not have diabetes. She denies history of the same. She denies any other complaints. TRAVEL OUTSIDE OF THE [place] IN LAST 30 DAYS: No - Related Data Allergies/Adverse Reactions: No Known Allergies Allergy (Verified 07/17/18 23:54) Past Medical History - General Information source: Patient - Social History Smoking Status: Never Smoker Frequency of alcohol use: None Drug Abuse: None Lives with: Family Family History: DM, Hyperlipidemia, Hypertension, Malignancy Pulmonary Medical History: Reports: Hx Asthma, Hx Bronchitis, Hx Pneumonia Renal/ Medical History: Reports: Hx Ovarian Cysts. Denies: Hx Peritoneal Zofia lysis GI Medical History: Reports: Hx Gastroesophageal Reflux Disease Psychiatric Medical History: Reports: Hx Depression - anxiety - Immunizations Immunizations up to date: Yes Hx Diphtheria, Pertussis, Tetanus Vaccination: Yes Review of Systems - Review of Systems Constitutional: No symptoms reported EENT: No symptoms reported Cardiovascular: No symptoms reported Respiratory: No symptoms reported Gastrointestinal: No symptoms reported Genitourinary: No symptoms reported Female Genitourinary: No symptoms reported Musculoskeletal: No symptoms reported Skin: See HPI Hematologic/Lymphatic: No symptoms reported Neurological/Psychological: No symptoms reported Physical Exam - Vital signs Vitals: Temp Pulse Resp BP Pulse Ox 98.0 F 84 20 139/81 H 97 07/18/18 00:04 07/18/18 00:04 07/18/18 00:04 07/18/18 00:04 07/18/18 00:04 - Notes Notes: GENERAL: Alert, interacts well. No acute distress. HEAD: Normocephalic, atraumatic. EYES: Pupils equal, round, and reactive to light. Extraocular movements intact. ENT: Oral mucosa moist, tongue midline. Oropharynx unremarkable. Airway patent. NECK: Full range of motion. Supple. Trachea midline. LUNGS: Clear to auscultation bilaterally, no wheezes, rales, or rhonchi. No respiratory distress. HEART: Regular rate and rhythm. No murmur ABDOMEN: Soft, non-tender. Non-distended. Bowel sounds present in all 4 quadrants. GENITOURINARY: Deferred EXTREMITIES: Moves all 4 extremities spontaneously. No edema, normal radial and dorsalis pedis pulses bilaterally. No cyanosis. BACK: no cervical, thoracic, lumbar midline tenderness. No saddle anesthesia, normal distal neurovascular exam. NEUROLOGICAL: Alert and oriented x3. Normal speech. [cranial nerves II through XII grossly intact]. PSYCH: Normal affect, normal mood. SKIN: Right proximal medial thigh with a slightly hardened area that has 1/4 cm opening consistent with a drained abscess, there is mild erythema of the area, no notable induration, no fluctuance. Adjacent to this there appears to be a spongy area that suggests a lymph node swelling although this is not definite Jenny WUP present at bedside. Course - Re-evaluation Re-evalutation: I did offer patient an ultrasound of the area because of the swelling adjacent to the drained abscess, she declined. I also offered placing her back in a room past triage to have additional incision to help guarantee recovery, she declined this as well. She requests antibiotic treatment and states she will return if she worsens. I did discuss strict return precautions. Patient states understanding and agreement. - Vital Signs Vital signs: Temp Pulse Resp BP Pulse Ox 98.2 F 78 20 128/88 H 96 07/18/18 01:57 07/18/18 01:57 07/18/18 01:57 07/18/18 01:57 07/18/18 01:57 Discharge - Discharge Clinical Impression: Abscess Condition: Stable Disposition: HOME, SELF-CARE Additional Instructions: Your evaluation is consistent with an abscess which has drained. We are placing you on antibiotics for the surrounding infection and hopefully to prevent this from recurring. There is a chance this closes and recurs however, if this happens he will need incision and drainage performed. The nearby areas are most suggestive of swollen lymph nodes which are reactive to nearby infection, however this is not definite. If the areas do not follow- up with primary care for additional evaluation including possible imaging. Return if you worsen including swelling, spreading redness, fever/chills, or any other concerning symptoms. Prescriptions: Cephalexin Monohydrate [Keflex 500 mg Capsule] 500 mg PO QID #28 capsule Sulfamethoxazole/Trimethoprim [Bactrim Ds Tablet] 1 each PO BID #14 tablet Forms: Return to Work Referrals: VIRGIE MILTON MD [Primary Care Provider] - Follow up as needed
[2018-07-18 01:57] VITALS: BP 128/88
== END 2018-07-18 02:00 | disposition home or self-care (01) ==
LOC: ER 23:53
DX: L02.91 Cutaneous abscess, unspecified (principal); J45.909 Unspecified asthma, uncomplicated
CPT/HCPCS: 99282

== ENCOUNTER 2018-07-20 17:23 | Emergency (ER) | payer SELFPAY ==
--- NOTE | 2018-07-20 19:48 | EKG REPORT ---
SEVERITY:- NORMAL ECG - SINUS RHYTHM : Confirmed by: Catrachita Bailey MD 20-Jul-2018 19:48:21
== END 2018-07-20 21:30 | disposition left against medical advice (07) ==
LOC: ER 17:23
DX: Z53.21 Procedure and treatment not carried out due to patient leaving prior to being seen by health care provider (principal)
CPT/HCPCS: 93005; 93010

== ENCOUNTER 2018-07-21 09:21 | Emergency (ER) | payer SELFPAY ==
[2018-07-21 09:29] VITALS: BP 128/77
--- NOTE | 2018-07-21 10:18 | ER Document Report ---
Addendum entered and electronically signed by LAMAR ENCISO PA-C 07/21/18 11:53: Discharge - Discharge Clinical Impression: Atypical chest pain Condition: Stable Disposition: AGAINST MEDICAL ADVICE Referrals: VIRGIE MILTON MD [Primary Care Provider] - Follow up as needed Course - Re-evaluation Re-evalutation: 07/21/18 11:52 Patient is requesting to sign out AGAINST MEDICAL ADVICE. The majority of her workup is completed, but we do not have a second troponin as it is too early to draw. I reviewed the risk and benefit of leaving AGAINST MEDICAL ADVICE inc luding that she can go home and . Patient is aware of this risk and still wants to sign out AMA. She is otherwise nontoxic-appearing at this time. Patient to return to the emergency department with any worsening or concerning symptoms. She is to recheck with her PCM in the next 1-2 days. Patient is in agreement. - Vital Signs Vital signs: Temp Pulse Resp BP Pulse Ox 98.2 F 70 18 128/77 H 97 07/21/18 09:28 07/21/18 09:28 07/21/18 09:28 07/21/18 09:28 07/21/18 09:28 - Laboratory Result Diagrams: 07/21/18 10:20 07/21/18 10:20 Laboratory results interpreted by me: 07/21/18 07/21/18 10:20 10:20 RDW 14.1 H Seg Neutrophils % 39.9 L Lymphocytes % 47.5 H Glucose 111 H Original Note: ED Medical Screen (RME) - General Chief Complaint: Chest Pain Stated Complaint: CHEST PAIN Time Seen by Provider: 07/21/18 10:13 Primary Care Provider: VIRGIE MILTON MD [Primary Care Provider] - Follow up as needed TRAVEL OUTSIDE OF THE [place] IN LAST 30 DAYS: No - HPI Notes: 07/21/18 10:16 Patient is a 32-year-old female with no significant past medical history aside from anxiety and depression who presents to the emergency department complaining of left-sided chest pain that primarily feels like a tightness, but will have occasional sharp pain with a deep breath. Patient states that she drinks 3 cups of coffee yesterday as well as a 5-hour energy which preceded her symptoms. Patient did present last evening and had an EKG performed, but left without being seen. She continues to have symptoms so she came back today. She is able to ambulate without any worsening symptoms. Patient does admit to smoking but denies IV drug abuse. Denies any prolonged immobilization, distance travel, recent surgery/trauma, personal cancer history, hormone use, calf pain, leg swelling, or previous DVT/PE. Denies SHARMA, fever, neck pain, URI, Abd pain, or rash. I have treated and performed a rapid initial assessment of this patient. A comprehensive ED assessment and evaluation of the patient, analysis of test results and completion of medical decision making process will be conducted by additional ED providers. PHYSICAL EXAMINATION: GENERAL: Well-appearing, well-nourished and in no acute distress. A&Ox4. Answers questions appropriately. LUNGS: Breath sounds clear to auscultation bilaterally and equal. No wheezes rales or rhonchi. Chest: + tenderness left chest wall HEART: Regular rate and rhythm without murmurs, rubs, gallops. ABDOMEN: Soft, nondistended abdomen. No guarding, no rebound. Normal bowel sounds present. No CVA tenderness bilaterally. no tenderness (cannot elicit thorough abd exam w/o table, however). Extremities: No cyanosis, clubbing, or edema b/l. Elizabeth negative. No lower extremity asymmetry. - Related Data Allergies/Adverse Reactions: No Known Allergies Allergy (Verified 07/21/18 09:23) Past Medical History - Social History Family history: Arthritis, CVA, DM, Hyperlipidemia, Hypertension, Malignancy, Other - Sleep apnea Pulmonary Medical History: Reports: Hx Asthma, Hx Bronchitis, Hx Pneumonia Renal/ Medical History: Reports: Hx Ovarian Cysts. Denies: Hx Peritoneal Dialysis GI Medical History: Reports: Hx Gastroesophageal Reflux Disease Psychiatric Medical History: Reports: Hx Depression - anxiety - Immunizations Immunizations up to date: Yes Hx Diphtheria, Pertussis, Tetanus Vaccination: Yes Physical Exam - Vital signs Vitals: Temp Pulse Resp BP Pulse Ox 98.2 F 70 18 128/77 H 97 07/21/18 09:28 07/21/18 09:28 07/21/18 09:28 07/21/18 09:28 07/21/18 09:28 Course - Vital Signs Vital signs: Temp Pulse Resp BP Pulse Ox 98.2 F 70 18 128/77 H 97 07/21/18 09:28 07/21/18 09:28 07/21/18 09:28 07/21/18 09:28 07/21/18 09:28 Doctor's Discharge - Discharge Referrals: VIRGIE MILTON MD [Primary Care Provider] - Follow up as needed
[2018-07-21 10:42] LABS: ABSOLUTE BASOPHILS # (AUTO) 0.1 10^3/uL (0.0-0.2); ABSOLUTE EOSINOPHILS # (AUTO) 0.3 10^3/uL (0.0-0.6); ABSOLUTE LYMPHOCYTES (AUTO) 3.8 10^3/uL (0.5-4.7); ABSOLUTE MONOCYTES (AUTO) 0.7 10^3/uL (0.1-1.4); ABSOLUTE NEUT (AUTO) 3.2 10^3/uL (1.7-8.2); BASOPHILS % (AUTO) 0.9 % (0-2); EOSINOPHILS % (AUTO) 3.6 % (0-6); HEMATOCRIT 41.3 % (36.0-47.0); HEMOGLOBIN 14.7 g/dL (12.0-15.5); LYMPHOCYTES % (AUTO) 47.5 % (13-45); MEAN CORPUSCULAR HEMOGLOBIN 28.8 pg (27.0-33.4); MEAN CORPUSCULAR HGB CONC 35.5 g/dL (32.0-36.0); MEAN CORPUSCULAR VOLUME 81 fl (80-97); MONOCYTES % (AUTO) 8.1 % (3-13); PLATELET COUNT 278 10^3/uL (150-450); RED BLOOD COUNT 5.09 10^6/uL (3.72-5.28); RED CELL DISTRIBUTION WIDTH 14.1 % (11.5-14.0); SEGMENTED NEUTROPHILS % (AUTO) 39.9 % (42-78); TOTAL CELLS COUNTED % (AUTO) 100 %
[2018-07-21 10:58] LABS: ALANINE AMINOTRANSFERASE 35 U/L (9-52); ALBUMIN 4.2 g/dL (3.5-5.0); ALKALINE PHOSPHATASE 85 U/L (38-126); ANION GAP 6 (5-19); ASPARTATE AMINO TRANSFERASE 29 U/L (14-36); BILIRUBIN,DIRECT 0.3 mg/dL (0.0-0.4); BILIRUBIN,TOTAL 0.6 mg/dL (0.2-1.3); BLOOD UREA NITROGEN 16 mg/dL (7-20); CALCIUM 10.2 mg/dL (8.4-10.2); CARBON DIOXIDE 25 mmol/L (22-30); CHLORIDE 107 mmol/L (98-107); GLUCOSE 111 mg/dL (75-110); POTASSIUM 4.5 mmol/L (3.6-5.0); SODIUM 138.3 mmol/L (137-145); TOTAL PROTEIN 7.4 g/dL (6.3-8.2)
--- NOTE | 2018-07-21 11:20 | RADIOLOGY REPORT (SQ) ---
EXAM DESCRIPTION: CHEST SINGLE VIEW COMPLETED DATE/TIME: 07/21/2018 11:07 am REASON FOR STUDY: CP COMPARISON: 06/17/2018 EXAM PARAMETERS: NUMBER OF VIEWS: One view. TECHNIQUE: Single frontal radiographic view of the chest acquired. RADIATION DOSE: NA LIMITATIONS: Hair overlies lung apices. FINDINGS: LUNGS AND PLEURA: No opacities, masses or pneumothorax. No pleural effusion. MEDIASTINUM AND HILAR STRUCTURES: No masses. Contour normal. HEART AND VASCULAR STRUCTURES: Heart normal in size. Normal vasculature. BONES: No acute findings. HARDWARE: None in the chest. OTHER: No other significant finding. IMPRESSION: NO ACUTE RADIOGRAPHIC FINDING IN THE CHEST. TECHNICAL DOCUMENTATION: JOB ID: [id number] [employer]- All Rights Reserved Reading location - IP/workstation name: [email or web address]
--- NOTE | 2018-07-21 21:50 | EKG REPORT ---
SEVERITY:- NORMAL ECG - SINUS RHYTHM : Confirmed by: Catrachita Bailey MD 21-Jul-2018 21:49:25
== END 2018-07-21 11:51 | disposition left against medical advice (07) ==
LOC: ER 09:21
DX: R07.89 Other chest pain (principal)
CPT/HCPCS: 36415; 71045; 80053; 84484; 84703; 85025; 93005; 93010; 99284

== ENCOUNTER 2018-10-14 05:59 | Emergency (ER) | payer SELFPAY ==
--- NOTE | 2018-10-14 06:37 | ER Document Report ---
ED General - General Chief Complaint: Sinus Congestion Stated Complaint: PAIN IN SIDE Time Seen by Provider: 10/14/18 06:15 Primary Care Provider: VIRGIE MILTON MD [Primary Care Provider] - Follow up as needed Mode of Arrival: Ambulatory Information source: Patient Notes: 33-year-old female presents with complaint of sinus pressure, left ear pain, left-sided neck pain and cough. Patient states that she has had cough and nasal congestion for approximately 3 weeks. She states when she coughs she has pain along the left side of her neck. She denies any falls, injury, fever, sore throat, shortness of breath, chest pain, abdominal pain. Patient has been taking Flonase. She was also concerned that she may have been exposed to mold. TRAVEL OUTSIDE OF THE [place] IN LAST 30 DAYS: No - HPI Onset: Other Onset/Duration: Gradual, Persistent Quality of pain: Pressure Severity: Mild Associated symptoms: Allergy/hay fever, Nonproductive cough, Earache, Sinus pain/drainage. denies: Body/muscle aches, Chest pain, Fever, Sore throat Exacerbated by: Denies Relieved by: Denies Similar symptoms previously: Yes Recently seen / treated by doctor: Yes - Related Data Allergies/Adverse Reactions: No Known Allergies Allergy (Verified 10/14/18 06:01) Past Medical History - General Information source: Patient, [facility] Records - Social History Smoking Status: Current Every Day Smoker Cigarette use (# per day): Yes - 10 Smoking Education Provided: Yes - Smoking cessation counseling was provided for 4 minutes at the bedside Frequency of alcohol use: None Drug Abuse: None Lives with: Family Family History: DM, Hyperlipidemia, Hypertension, Malignancy Patient has suicidal ideation: No Patient has homicidal ideation: No Pulmonary Medical History: Reports: Hx Asthma, Hx Bronchitis, Hx Pneumonia Renal/ Medical History: Reports: Hx Ovarian Cysts. Denies: Hx Peritoneal Dialysis GI Medical History: Reports: Hx Gastroesophageal Reflux Disease Psychiatric Medical History: Reports: Hx Depression - anxiety - Immunizations Immunizations up to date: Yes Hx Diphtheria, Pertussis, Tetanus Vaccination: Yes Review of Systems - Review of Systems Constitutional: Recent illness EENT: Ear pain, Nose congestion, Sinus pressure, Sinus discharge. denies: Throat pain Cardiovascular: denies: Chest pain, Palpitations Respiratory: Cough. denies: Short of breath, Wheezing Gastrointestinal: denies: Abdominal pain, Nausea, Vomiting, Poor appetite, Poor fluid intake Genitourinary: denies: Dysuria, Flank pain Female Genitourinary: No symptoms reported Musculoskeletal: Neck pain. denies: Back pain Skin: denies: Rash Hematologic/Lymphatic: No symptoms reported Neurological/Psychological: denies: Weakness -: Yes All other systems reviewed and negative Physical Exam - Vital signs Vitals: Temp Pulse Resp BP Pulse Ox 97.7 F 86 16 142/80 H 96 10/14/18 06:03 10/14/18 06:03 10/14/18 06:03 10/14/18 06:03 10/14/18 06:03 - Notes Notes: PHYSICAL EXAMINATION: GENERAL: Well-appearing, well-nourished and in no acute distress. HEAD: Atraumatic, normocephalic. EYES: Pupils equal round and reactive to light, extraocular movements intact, conjunctiva are normal. ENT: Nares patent, oropharynx clear without exudates. Moist mucous membranes. NECK: Normal range of motion, supple without lymphadenopathy LUNGS: Breath sounds clear to auscultation bilaterally and equal. No wheezes rales or rhonchi. HEART: Regular rate and rhythm without murmurs ABDOMEN: Soft, nontender, nondistended abdomen. No guarding, no rebound. No masses appreciated. Female : deferred Musculoskeletal: Normal range of motion, no pitting or edema. No cyanosis. NEUROLOGICAL: Cranial nerves grossly intact. Normal speech, normal gait. Normal sensory, motor exams PSYCH: Normal mood, normal affect. SKIN: Warm, Dry, normal turgor, no rashes or lesions noted. Course - Re-evaluation Re-evalutation: Temp Pulse Resp BP Pulse Ox 97.7 F 86 16 142/80 H 96 10/14/18 06:03 10/14/18 06:03 10/14/18 06:03 10/14/18 06:03 10/14/18 06:03 10/14/18 06:46 Presentation is most consistent with a viral upper respiratory infection. Patient is overall well appearance, vitals within normal limits, well-hydrated. Patient denies any headache, neck pain, and has no evidence of meningismus on examination. Lungs are clear bilaterally. No evidence of respiratory distress. Based on clinical exam and history, I do not suspect an acute pneumonia, meningitis, strep pharyngitis, or an acute encephalitis. No laboratory or imaging testing is indicated at this time. Will discharge patient with return precautions and followup recommendations. They are in agreement this plan have verbalized understanding return precautions. - Vital Signs Vital signs: Temp Pulse Resp BP Pulse Ox 97.7 F 86 16 142/80 H 96 10/14/18 06:03 10/14/18 06:03 10/14/18 06:03 10/14/18 06:03 10/14/18 06:03 Discharge - Discharge Clinical Impression: Sinusitis Qualifiers: Sinusitis location: frontal Chronicity: unspecified Qualified Code(s): J32.1 - Chronic frontal sinusitis URI (upper respiratory infection) Qualifiers: URI type: unspecified URI Qualified Code(s): J06.9 - Acute upper respiratory infection, unspecified Cervical strain Qualifiers: Encounter type: initial encounter Qualified Code(s): S16.1XXA - Strain of muscl e, fascia and tendon at neck level, initial encounter Condition: Good Disposition: HOME, SELF-CARE Instructions: Neck Injury (Cervical Strain) ([facility]), Upper Respiratory Illness ([facility]), Viral Syndrome ([facility]) Additional Instructions: Your symptoms are most likely due to a viral infection it should resolve over the next 7-14 days. You should take lfpy-cyk-tuysatu guanfacine per bottle instructions to help thin the mucus. For nasal congestion: I would recommend that you get zfvy-dxs-gblhiwk oxymetazoline also known is afrin. Use only per bottle instructions and be sure to never use this for more than 3 days if you can develop severe rebound congestion. You may also use tylenol or ibuprofen as needed for aches and thorat discomfort. Please be sure to drink plenty of fluids and get rest. Return to the emergency department he began having difficulty breathing, chest pain, persistent vomiting, or any other symptoms that are concerning to you. Follow up with your -90 hours for further care or return to the ED IMMEDIATELY if symptoms worsen or you have any concerns. If you cannot afford to follow up with your primary care physician a list of low cost clinics have been provided at the end of your discharge papers as well. Most prescribed medications have multiple side effects. The safest thing to do is when filling your prescription speak to your pharmacist regarding possible interactions with your normal home medications and over the counter medications such as Ibuprofen, Tylenol, Benadryl. If you experience any symptoms that cause you discomfort or concern you should discontinue the medication immediately and return to the emergency room or call your primary care physician. Prescriptions: Cetirizine HCl [Zyrtec 10 mg Tablet] 1 tab PO DAILY #30 tablet Cyclobenzaprine HCl [Flexeril 10 mg Tablet] 10 mg PO BID #14 tablet Forms: Elevated Blood Pressure Referrals: VIRGIE MILTON MD [Primary Care Provider] - Follow up as needed
[2018-10-14 07:15] VITALS: BP 138/76
== END 2018-10-14 07:15 | disposition home or self-care (01) ==
LOC: ER 05:59
DX: J32.1 Chronic frontal sinusitis (principal); J06.9 Acute upper respiratory infection, unspecified; S16.1XXA Strain of muscle, fascia and tendon at neck level, initial encounter; X58.XXXA Exposure to other specified factors, initial encounter; R09.81 Nasal congestion; H92.02 Otalgia, left ear; M54.2 Cervicalgia; R05 Cough; J45.909 Unspecified asthma, uncomplicated; F17.210 Nicotine dependence, cigarettes, uncomplicated; Z71.6 Tobacco abuse counseling; Z87.01 Personal history of pneumonia (recurrent)
CPT/HCPCS: 99283; 99406

== ENCOUNTER 2019-01-02 22:23 | Emergency (ER) | payer SELFPAY ==
--- NOTE | 2019-01-03 00:04 | RADIOLOGY REPORT (SQ) ---
EXAM DESCRIPTION: XR CHEST 2 VIEWS COMPLETED DATE/TME: 01/02/2019 23:36 CLINICAL HISTORY: 33 years, Female, sob COMPARISON: 07/21/2018 NUMBER OF VIEWS: Two TECHNIQUE: Two views of the chest LIMITATIONS: None. FINDINGS: The lungs are clear. The heart is normal in size. There is no pneumothorax or pleural effusion. There is no acute fracture. IMPRESSION: No acute cardiopulmonary abnormality copyright 2010 [employer]- All Rights Reserved
--- NOTE | 2019-01-03 00:39 | ER Document Report ---
HPI - HPI Patient complains to provider of: Cough and congestion Time Seen by Provider: 01/02/19 23:36 Pain Level: 5 Context: Patient is a 33-year-old female presents to the emergency department for generalized cough and congestion for the last 5 days. Patient's denying any fevers. States she has been taking Mucinex and using Vicks VapoRub. Patient complains of though she feels like "something is rattling in my chest." Patient's denying any respiratory distress or chest pain. She is denying any abdominal pain or dysuria. Denying any vomiting or diarrhea. Past medical history: PCOS, no daily medications, no known allergies. - REPRODUCTIVE LMP: pcos Reproductive: DENIES: : Past Medical History - General Information source: Patient - Social History Smoking Status: Current Every Day Smoker Family History: DM, Hyperlipidemia, Hypertension, Malignancy Patient has suicidal ideation: No Patient has homicidal ideation: No Pulmonary Medical History: Reports: Hx Asthma, Hx Bronchitis, Hx Pneumonia Renal/ Medical History: Reports: Hx Ovarian Cysts. Denies: Hx Peritoneal Dialysis GI Medical History: Reports: Hx Gastroesophageal Reflux Disease Psychiatric Medical History: Reports: Hx Depression - anxiety - Immunizations Immunizations up to date: Yes Hx Diphtheria, Pertussis, Tetanus Vaccination: Yes Vertical Provider Document - CONSTITUTIONAL Agree With Documented VS: Yes Notes: GENERAL: Alert, interacts well. No acute distress. HEAD: Normocephalic, atraumatic. No frontal or maxillary sinus tenderness noted EYES: Pupils equal, round, and reactive to light. Extraocular movements intact. ENT: Oral mucosa moist, tongue midline. Nares patent, swollen turbinates noted bilaterally, TM's intact, nonerythematous, nonbulging bilaterally. Pharynx within normal limits no palatal petechiae noted. NECK: Full range of motion. Supple. Trachea midline. No lymphadenopathy appreciated LUNGS: Clear to auscultation bilaterally, no wheezes, rales, or rhonchi. No respiratory distress. HEART: Regular rate and rhythm. No murmur ABDOMEN: Soft, non-tender. Non-distended. Bowel sounds present in all 4 quadrants. EXTREMITIES: Moves all 4 extremities spontaneously. No edema, normal radial and dorsalis pedis pulses bilaterally. No cyanosis. BACK: no cervical, thoracic, lumbar midline tenderness. No saddle anesthesia, normal distal neurovascular exam. NEUROLOGICAL: Alert and oriented x3. Normal speech. cranial nerves II through XII grossly intact PSYCH: Normal affect, normal mood. SKIN: Warm, dry, normal turgor. No rashes or lesions noted. - INFECTION CONTROL TRAVEL OUTSIDE OF THE [place] IN LAST 30 DAYS: No Course - Re-evaluation Re-evalutation: 01/03/19 00:37 Chest X-Ray 01/02/19 23:36 IMPRESSION: No acute cardiopulmonary abnormality copyright 2010 [employer]- All Rights Reserved Patient's lung sounds are clear and equal in all hernández. I have discussed with her at bedside continued use of Mucinex, adding an allergy medication and Nasonex. Discussed use of qkfl-riv-vyotfku Tylenol Motrin for generalized body aches. Discussed likely viral diagnosis and need to follow-up with primary care provider. At this time will discharge with return precautions and follow-up recommendations. Verbal discharge instructions given a the bedside and opportunity for questions given. Medication warnings reviewed. Patient is in agreement with this plan and has verbalized understanding of return precautions and the need for primary care follow-up in the next 24-72 hours. This medical record was dictated with voice recognizing software. There may be grammatical, syntax errors that are unintended. - Vital Signs Vital signs: Temp Pulse Resp BP Pulse Ox 97.9 F 90 18 151/98 H 98 01/02/19 22:38 01/02/19 22:38 01/02/19 22:38 01/02/19 22:38 01/02/19 22:38 Discharge - Discharge Clinical Impression: Upper respiratory infection Qualifiers: URI type: unspecified viral URI Qualified Code(s): J06.9 - Acute upper respiratory infection, unspecified Condition: Stable Disposition: HOME, SELF-CARE Instructions: Upper Respiratory Illness ([facility]), Viral Syndrome ([facility]) Additional Instructions: As we discussed you have been seen and treated in the emergency department for an upper respiratory infection. These are typically caused by viruses and do not respond to antibiotics. Please make sure you are taking xddv-hvi-ncqlsji cold medications, staying well-hydrated and following up with your primary care doctor. Please return to the emergency room for any concerns. Prescriptions: Mometasone Furoate [Nasonex] 1 spray NS Q12 #1 spray.pump Referrals: VIRGIE MILTON MD [Primary Care Provider] - Follow up as needed
[2019-01-03 00:53] VITALS: BP 132/85
== END 2019-01-03 00:56 | disposition home or self-care (01) ==
LOC: ER 22:23
DX: J06.9 Acute upper respiratory infection, unspecified (principal); R05 Cough; R09.81 Nasal congestion; F17.200 Nicotine dependence, unspecified, uncomplicated; J45.909 Unspecified asthma, uncomplicated
CPT/HCPCS: 71046; 99283

== ENCOUNTER 2019-01-04 04:40 | Emergency (ER) | payer SELFPAY ==
[2019-01-04 04:52] VITALS: BP 136/79
--- NOTE | 2019-01-04 07:49 | ER Document Report ---
ED General - General Chief Complaint: Painful Cough Stated Complaint: COUGH Time Seen by Provider: 01/04/19 07:10 Primary Care Provider: VIRGIE MILTON MD [Primary Care Provider] - Follow up as needed TRAVEL OUTSIDE OF THE [place] IN LAST 30 DAYS: No - HPI Notes: 33-year-old female presents with cough and URI symptoms. Patient describes several days of cough sinus congestion, complains now left frontotemporal headache due to coughing as well as back pain due to coughing. Was seen yesterday, given Flonase which she thinks is helped her but she is continued to have cough which concerns her. Moderate intensity, nonradiating. No other modifying factors, no other associated symptoms, no other provocative or palliative factors. - Related Data Allergies/Adverse Reactions: No Known Allergies Allergy (Verified 10/14/18 06:01) Past Medical History - Social History Smoking Status: Current Every Day Smoker Chew tobacco use (# tins/day): No Frequency of alcohol use: None Family History: DM, Hyperlipidemia, Hypertension, Malignancy Patient has suicidal ideation: No Patient has homicidal ideation: No Pulmonary Medical History: Reports: Hx Asthma, Hx Bronchitis, Hx Pneumonia Renal/ Medical History: Reports: Hx Ovarian Cysts. Denies: Hx Peritoneal Dialysis GI Medical History: Reports: Hx Gastroesophageal Reflux Disease Psychiatric Medical History: Reports: Hx Depression - anxiety - Immunizations Immunizations up to date: Yes Hx Diphtheria, Pertussis, Tetanus Vaccination: Yes Review of Systems - Review of Systems Notes: Review of systems as in the history of present illness, otherwise negative x 10 systems. Physical Exam - Vital signs Vitals: Temp Pulse Resp BP Pulse Ox 97.6 F 72 18 136/79 H 97 01/04/19 04:51 01/04/19 04:51 01/04/19 04:51 01/04/19 04:51 01/04/19 04:51 - Notes Notes: General: Well developed . HEENT: Normocephalic, atraumatic. Pupils equal round reactive to light. No JVD. Chest: No trauma. Respiratory: Good air exchange, normal excursion. Cardiac: Regular rhythm. No murmurs or gallops. Abdomen: Soft, benign. Nondistended. Nontender. Back: No asymmetry or gross abnormality. Motor: Grossly normal power and tone. Neurologic: Alert, nonfocal. Cranial nerves II-12 are intact. Sensation intact. Vascular: Well perfused. Normal peripheral pulses. Skin: No petechiae or purpura. Course - Re-evaluation Re-evalutation: 01/04/19 07:47 Well-appearing female stigmata viral URI. Normal pulmonary exam and, records are reviewed from yesterday, normal x-ray then. No indication for antibiotics. Will treat with Tessalon Perles, outpatient follow-up. - Vital Signs Vital signs: Temp Pulse Resp BP Pulse Ox 97.6 F 72 18 136/79 H 97 01/04/19 04:51 01/04/19 04:51 01/04/19 04:51 01/04/19 04:51 01/04/19 04:51 Discharge - Discharge Clinical Impression: URI (upper respiratory infection) Qualifiers: URI type: unspecified viral URI Qualified Code(s): J06.9 - Acute upper respiratory infection, unspecified Condition: Good Disposition: HOME, SELF-CARE Instructions: Upper Respiratory Illness ([facility]) Prescriptions: Benzonatate [Tessalon Perle 100 mg Capsule] 100 mg PO Q8HP PRN #40 cap PRN Reason: Referrals: VIRGIE MILTON MD [Primary Care Provider] - Follow up as needed
== END 2019-01-04 08:15 | disposition home or self-care (01) ==
LOC: ER 04:40
DX: J06.9 Acute upper respiratory infection, unspecified (principal); B97.89 Other viral agents as the cause of diseases classified elsewhere; R05 Cough; R09.81 Nasal congestion; R51 Headache; M54.9 Dorsalgia, unspecified; F17.200 Nicotine dependence, unspecified, uncomplicated; J45.909 Unspecified asthma, uncomplicated; Z87.01 Personal history of pneumonia (recurrent)

== ENCOUNTER 2019-02-17 11:18 | Emergency (ER) | payer SELFPAY ==
[2019-02-17 11:27] VITALS: BP 158/90
--- NOTE | 2019-02-17 11:59 | ER Document Report ---
HPI - HPI Time Seen by Provider: 02/17/19 11:54 Pain Level: 4 Context: Patient is a 33-year-old female who presents to the emergency department with a chief complaint of left ear pain and sore throat. Patient reports she thought this was due to her allergies and has been taking her Flonase and Claritin. Patient denies fever. Patient reports swallowing makes the pain worse to the left side of her neck. Patient denies drainage from the ear. Patient denies runny nose or cough or congestion. Patient reports the symptoms have been present for 4 days. Patient reports her friend was recently diagnosed with strep. - EENT EENT: REPORTS: Sore Throat, Ear Pain - Left ear - RESPIRATORY Respiratory: DENIES: Coughing - REPRODUCTIVE LMP: PCOS Reproductive: DENIES: : Past Medical History - General Information source: Patient - Social History Smoking Status: Current Every Day Smoker Chew tobacco use (# tins/day): No Frequency of alcohol use: None Drug Abuse: None Lives with: Family Family History: DM, Hyperlipidemia, Hypertension, Malignancy Patient has suicidal ideation: No Patient has homicidal ideation: No - Past Medical History Cardiac Medical History: Reports: None Pulmonary Medical History: Reports: Hx Asthma, Hx Bronchitis, Hx Pneumonia EENT Medical History: Reports: None Neurological Medical History: Reports: None Endocrine Medical History: Reports: None Renal/ Medical History: Reports: Hx Ovarian Cysts. Denies: Hx Peritoneal Dialysis Malignancy Medical History: Reports: None GI Medical History: Reports: Hx Gastroesophageal Reflux Disease Musculoskeletal Medical History: Reports None Skin Medical History: Reports None Psychiatric Medical History: Reports: Hx Depression - anxiety Traumatic Medical History: Reports: None Infectious Medical History: Reports: None Surgical Hx: Negative - Immunizations Immunizations up to date: Yes Hx Diphtheria, Pertussis, Tetanus Vaccination: Yes Vertical Provider Document - CONSTITUTIONAL Agree With Documented VS: Yes Exam Limitations: No Limitations General Appearance: No Apparent Distress - INFECTION CONTROL TRAVEL OUTSIDE OF THE [place] IN LAST 30 DAYS: No - HEENT HEENT: Atraumatic, Normocephalic, PERRLA Notes: Slightly erythematous and a +1 tonsils bilaterally. I did note some exudate to the left tonsil. Uvula is midline. Right and Left ear: Patient does not have any tragus, external pinna or mastoid tenderness. There is no drainage noted from the ears. Was able to visualize the TM which is pearly siddiqi without erythema or bulging. There does not appear to be any fluid or drainage behind the eardrum. - NECK Neck: Normal Inspection Notes: Patient does not have any specific cervical lymphadenopathy. Patient does have tenderness to the left submandibular nodes. - RESPIRATORY Respiratory: Breath Sounds Normal, No Respiratory Distress - CARDIOVASCULAR Cardiovascular: Regular Rate, Regular Rhythm - GI/ABDOMEN Gastrointestinal: Abdomen Soft, Abdomen Non-Tender, Normal Bowel Sounds - MUSCULOSKELETAL/EXTREMETIES Musculoskeletal/Extremeties: FROM, Non-Tender - NEURO Level of Consciousness: Awake, Alert, Appropriate - DERM Integumentary: Warm, Dry Course - Re-evaluation Re-evalutation: 02/17/19 11:58 We will test for strep. I did offer the patient pain medication. Patient states she does not want any at this time. 02/17/19 12:54 Patient strep test negative. Did educate the patient on strict return precautions. Take Tylenol ibuprofen as needed for pain. - Vital Signs Vital signs: Temp Pulse Resp BP Pulse Ox 98 F 74 18 158/90 H 98 02/17/19 11:23 02/17/19 11:23 02/17/19 11:23 02/17/19 11:23 02/17/19 11:23 Discharge - Discharge Clinical Impression: Sore throat, Left ear pain Condition: Stable Disposition: HOME, SELF-CARE Additional Instructions: *Today you are seen in the emergency department for left ear pain and sore throat. Your strep test is negative. Your symptoms are most likely due to a viral illness. Please use Tylenol and ibuprofen as needed for pain. Please return if your symptoms worsen such as difficulty breathing, difficulty swallowing, swelling of the neck, severe ear pain or any new or worsening symptoms. Please continue to push fluids to stay hydrated. Please continue taking your Flonase and antiallergy medication as these may ultimately help with your symptoms as well. * Forms: Return to Work Referrals: VIRGIE MILTON MD [Primary Care Provider] - Follow up as needed
== END 2019-02-17 12:56 | disposition home or self-care (01) ==
LOC: ER 11:18
DX: J02.9 Acute pharyngitis, unspecified (principal); H92.02 Otalgia, left ear; J45.909 Unspecified asthma, uncomplicated; Z79.899 Other long term (current) drug therapy; F17.200 Nicotine dependence, unspecified, uncomplicated
CPT/HCPCS: 87070; 87880

== ENCOUNTER 2019-03-04 07:21 | Emergency (ER) | payer SELFPAY ==
[2019-03-04 07:26] VITALS: BP 141/75
[2019-03-04 08:13] LABS: ABSOLUTE BASOPHILS # (AUTO) 0.1 10^3/uL (0.0-0.2); ABSOLUTE EOSINOPHILS # (AUTO) 0.3 10^3/uL (0.0-0.6); ABSOLUTE LYMPHOCYTES (AUTO) 3.5 10^3/uL (0.5-4.7); ABSOLUTE MONOCYTES (AUTO) 0.7 10^3/uL (0.1-1.4); ABSOLUTE NEUT (AUTO) 3.6 10^3/uL (1.7-8.2); BASOPHILS % (AUTO) 0.7 % (0-2); EOSINOPHILS % (AUTO) 3.4 % (0-6); HEMATOCRIT 39.6 % (36.0-47.0); LYMPHOCYTES % (AUTO) 42.7 % (13-45); MEAN CORPUSCULAR HEMOGLOBIN 28.6 pg (27.0-33.4); MEAN CORPUSCULAR HGB CONC 35.2 g/dL (32.0-36.0); MEAN CORPUSCULAR VOLUME 81 fl (80-97); PLATELET COUNT 269 10^3/uL (150-450); RED BLOOD COUNT 4.88 10^6/uL (3.72-5.28); SEGMENTED NEUTROPHILS % (AUTO) 44.2 % (42-78); TOTAL CELLS COUNTED % (AUTO) 100 %; WHITE BLOOD COUNT 8.3 10^3/uL (4.0-10.5)
[2019-03-04 08:56] LABS: ALBUMIN 4.2 g/dL (3.5-5.0); ALKALINE PHOSPHATASE 91 U/L (38-126); ANION GAP 9 (5-19); ASPARTATE AMINO TRANSFERASE 30 U/L (14-36); BILIRUBIN,DIRECT 0.2 mg/dL (0.0-0.4); BILIRUBIN,TOTAL 0.6 mg/dL (0.2-1.3); BLOOD UREA NITROGEN 15 mg/dL (7-20); CALCIUM 9.2 mg/dL (8.4-10.2); CARBON DIOXIDE 24 mmol/L (22-30); CHLORIDE 105 mmol/L (98-107); GLUCOSE 113 mg/dL (75-110); TOTAL PROTEIN 7.7 g/dL (6.3-8.2)
--- NOTE | 2019-03-04 09:14 | ER Document Report ---
Entered by JOSE MACDONALD SCRIBE 03/04/19 0747 Acting as scribe for:RENA SHERIDAN MD ED Extremity Problem, Lower - General Chief Complaint: Ankle Injury Stated Complaint: ANKLE PAIN Time Seen by Provider: 03/04/19 07:35 Mode of Arrival: Ambulatory Information source: Patient Notes: This 33-year-old female patient presents to the emergency department today with complaints of bilateral foot and ankle swelling and pain. Patient states that she has had chronic ankle pain for quite some time although she has noticed that the ankle pain and swelling seems to have become worse since starting a new job x1 month ago. 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 Patient states that when she woke up this morning she was unable to walk due to "so much pain and swelling". Patient denies any trauma. TRAVEL OUTSIDE OF THE [place] 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 [employer] Lives with: Family Family History: DM, Hyperlipidemia, Hypertension, Malignancy Patient has suicidal ideation: No Patient has homicidal ideation: No Pulmonary Medical History: Reports: Hx Asthma, Hx Bronchitis, Hx Pneumonia Renal/ Medical History: Reports: Hx Ovarian Cysts GI Medical History: Reports: Hx Gastroesophageal Reflux Disease Psychiatric Medical History: Reports: Hx Anxiety, Hx Depression - Immunizations Immunizations up to date: Yes Hx Diphtheria, Pertussis, Tetanus Vaccination: Yes Review of Systems - Review of Systems Constitutional: No symptoms reported EENT: No symptoms reported Cardiovascular: No symptoms reported Respiratory: No symptoms reported Gastrointestinal: No symptoms reported Genitourinary: No symptoms reported Female Genitourinary: No symptoms reported Musculoskeletal: See HPI, Joint pain, Ankle swelling Skin: No symptoms reported Hematologic/Lymphatic: No symptoms reported Neurological/Psychological: No symptoms reported -: Yes All other systems reviewed and negative Physical Exam - Vital signs Vitals: Temp Pulse Resp BP Pulse Ox 97.8 F 85 20 141/75 H 96 03/04/19 07:25 03/04/19 07:25 03/04/19 07:25 03/04/19 07:25 03/04/19 07:25 - Notes Notes: Physical Exam: General: Alert, appears well. HEENT: Normocephalic. Atraumatic. PERRLA. Extraocular movements intact. Oropharynx clear. Neck: Supple. Respiratory: No respiratory distress. Abdominal: Normal Inspection. No distension. Extremities: Bilateral swelling of the anterior ankles, tenderness to palpation over the bilateral anterior medial foot particularly over the navicular bone. There is increasing tenderness medially. There is exquisite tenderness with plantar flexion of the ankle bilaterally. Neurological: Normal cognition. AAOx4. Normal speech. Psychological: Normal affect. Normal Mood. Skin: Warm. Dry. Normal color. Course - Vital Signs Vital signs: Temp Pulse Resp BP Pulse Ox 97.8 F 85 20 141/75 H 96 03/04/19 07:25 03/04/19 07:25 03/04/19 07:25 03/04/19 07:25 03/04/19 07:25 - Laboratory Result Diagrams: 03/04/19 08:00 03/04/19 08:00 Laboratory results interpreted by me: 03/04/19 08:00 Glucose 113 H - Diagnostic Test Radiology reviewed: Image reviewed, Reports reviewed - Both ankles show talonavicular dorsal osteophytes Discharge - Discharge Clinical Impression: Strain of ankle and foot Qualifiers: Encounter type: initial encounter Laterality: unspecified laterality Qualified Code(s): S96.919A - Strain of unspecified muscle and tendon at ankle and foot level, unspecified foot, initial encounter Condition: Stable Disposition: HOME, SELF-CARE Additional Instructions: Your x-rays show spurring on the bones of the foot called the talus and the navicular. The spurs suggest chronic strain and trauma to that part of your foot in prior years. Your current job is now causing straining to the same area that the bone spurs are located in. You should take something like ibuprofen every 8 hours or Aleve 2 tablets every 12 hours. Use Velcro ankle and foot braces for better support when you are on your feet. Elevate your feet whenever possible. Follow-up with a local primary care provider or a local orthopedic surgeon if not improving. RETURN TO THE EMERGENCY ROOM IF ANY NEW OR WORSENING SYMPTOMS. Forms: Return to Work Scribe Attestation: 03/04/19 09:15 I personally performed the services described in the documentation, reviewed and edited the documentation which was dictated to the scribe in my presence, and it accurately records my words and actions. I personally performed the services described in the documentation, reviewed and edited the documentation which was dictated to the scribe in my presence, and it accurately records my words and actions.
--- NOTE | 2019-03-04 09:19 | RADIOLOGY REPORT (SQ) ---
EXAM DESCRIPTION: ANKLE RIGHT COMPLETE COMPLETED DATE/TIME: 03/04/2019 8:53 am REASON FOR STUDY: Bilat ant. ankle pain after prolonged standing COMPARISON: None. NUMBER OF VIEWS: Three views. TECHNIQUE: AP, lateral, and oblique without weight bearing radiographic images acquired of the right ankle. LIMITATIONS: None. FINDINGS: MINERALIZATION: Normal. BONES: No acute fracture or dislocation. No worrisome bone lesions. Talonavicular dorsal osteophytes. JOINTS: No effusions. SOFT TISSUES: No soft tissue swelling. No foreign body. OTHER: No other significant finding. IMPRESSION: Talonavicular osteophytes. No other significant finding. TECHNICAL DOCUMENTATION: JOB ID: [id number] [employer]- All Rights Reserved Reading location - IP/workstation name: [email or web address]
--- NOTE | 2019-03-04 09:19 | RADIOLOGY REPORT (SQ) ---
EXAM DESCRIPTION: ANKLE LEFT COMPLETE COMPLETED DATE/TIME: 03/04/2019 8:53 am REASON FOR STUDY: Bilat ant. ankle pain after prolonged standing COMPARISON: None. NUMBER OF VIEWS: Three views. TECHNIQUE: AP, lateral, and oblique radiographic images acquired of the left ankle. LIMITATIONS: None. FINDINGS: MINERALIZATION: Normal. BONES: No acute fracture or dislocation. No worrisome bone lesions. JOINTS: No effusions. SOFT TISSUES: No soft tissue swelling. No foreign body. OTHER: No other significant finding. IMPRESSION: NEGATIVE STUDY OF THE LEFT ANKLE. NO RADIOGRAPHIC EVIDENCE OF ACUTE INJURY. TECHNICAL DOCUMENTATION: JOB ID: [id number] [employer]- All Rights Reserved Reading location - IP/workstation name: [email or web address]
== END 2019-03-04 09:46 | disposition home or self-care (01) ==
LOC: ER 07:21
DX: S96.919A Strain of unspecified muscle and tendon at ankle and foot level, unspecified foot, initial encounter (principal); X58.XXXA Exposure to other specified factors, initial encounter; M25.772 Osteophyte, left ankle; M25.771 Osteophyte, right ankle; M25.471 Effusion, right ankle; M25.472 Effusion, left ankle; J45.909 Unspecified asthma, uncomplicated; F17.210 Nicotine dependence, cigarettes, uncomplicated
CPT/HCPCS: 36415; 80053; 84703; 85025; 99283

== ENCOUNTER 2019-04-22 23:11 | Emergency (ER) | payer SELFPAY ==
--- NOTE | 2019-04-23 00:26 | ER Document Report ---
ED Medical Screen (RME) - General Stated Complaint: CHILLS,FEVER,COUGH,CHEST PAIN Time Seen by Provider: 04/23/19 00:19 Primary Care Provider: MAXIMUS CINTRON MD [Primary Care Provider] - Follow up as needed Mode of Arrival: Ambulatory Information source: Patient Notes: 33-year-old female patient presenting to the emergency department chief complaint of fever, cough, congestion. Patient reports symptoms started approximately 2 to 3 days ago. Patient reports she thinks she has the flu or pneumonia. Patient's lung sounds are clear and equal bilaterally. She is in no acute distress today. I have greeted and performed a rapid initial assessment of this patient. A comprehensive ED assessment and evaluation of the patient, analysis of test results and completion of the medical decision making process will be conducted by additional ED providers. I have specifically instructed the patient or family members with the patient to immediately return to any nursing staff should anything change in the patient's condition or with their chief complaint. TRAVEL OUTSIDE OF THE [place] IN LAST 30 DAYS: No - Related Data Allergies/Adverse Reactions: No Known Allergies Allergy (Verified 03/04/19 07:27) Past Medical History - Social History Family history: Arthritis, CVA, DM, Hyperlipidemia, Hypertension, Malignancy, Other - Sleep apnea Pulmonary Medical History: Reports: Hx Asthma, Hx Bronchitis, Hx Pneumonia Renal/ Medical History: Reports: Hx Ovarian Cysts. Denies: Hx Peritoneal Dialysis GI Medical History: Reports: Hx Gastroesophageal Reflux Disease Psychiatric Medical History: Reports: Hx Anxiety, Hx Depression - Immunizations Immunizations up to date: Yes Hx Diphtheria, Pertussis, Tetanus Vaccination: Yes Physical Exam - Vital signs Vitals: Temp Pulse Resp BP Pulse Ox 99.0 F 96 16 133/74 H 99 04/22/19 23:19 04/22/19 23:19 04/22/19 23:19 04/22/19 23:19 04/22/19 23:19 Course - Vital Signs Vital signs: Temp Pulse Resp BP Pulse Ox 99.0 F 96 16 133/74 H 99 04/22/19 23:19 04/22/19 23:19 04/22/19 23:19 04/22/19 23:19 04/22/19 23:19 Doctor's Discharge - Discharge Referrals: MAXIMUS CINTRON MD [Primary Care Provider] - Follow up as needed
[2019-04-23 00:56] LABS: A TYPE INFLUENZA AG NEGATIVE (NEGATIVE); B INFLUENZA AG NEGATIVE (NEGATIVE)
--- NOTE | 2019-04-23 01:14 | RADIOLOGY REPORT (SQ) ---
EXAM DESCRIPTION: [facility]: XR CHEST 2 VIEWS Views: 2 CLINICAL HISTORY: 33 years Female; cough/fever; COMPARISON: 07/21/2018 FINDINGS: The lungs are clear. No pneumothorax or significant pleural effusion. Cardiomediastinal silhouette is within normal limits. Bony structures are unremarkable for age. IMPRESSION: 1. No acute cardiothoracic abnormality.
--- NOTE | 2019-04-23 01:42 | ER Document Report ---
ED General - General Chief Complaint: Flu Symptoms Stated Complaint: CHILLS,FEVER,COUGH,CHEST PAIN Time Seen by Provider: 04/23/19 00:19 Primary Care Provider: MAXIMUS CINTRON MD [Primary Care Provider] - Follow up as needed Mode of Arrival: Ambulatory Notes: 33-year-old female presents emergency department complaining of chills, cough, fever and irritated throat associated with nausea without vomiting and diarrhea for the past 1 to 2 days. Fever was a T-max of 100.8. 1 of her nieces was recently diagnosed with flu and pneumonia, her other niece was diagnosed with a virus. Patient states that some of her symptoms improved with Steve-D, otherwise symptoms have not changed. TRAVEL OUTSIDE OF THE [place] IN LAST 30 DAYS: No - Related Data Allergies/Adverse Reactions: No Known Allergies Allergy (Verified 03/04/19 07:27) Home Medications: steve and flonase Past Medical History - General Information source: Patient - Social History Smoking Status: Current Every Day Smoker Chew tobacco use (# tins/day): No Frequency of alcohol use: None Drug Abuse: None Family History: DM, Hyperlipidemia, Hypertension, Malignancy Patient has suicidal ideation: No Patient has homicidal ideation: No Pulmonary Medical History: Reports: Hx Asthma, Hx Bronchitis, Hx Pneumonia Renal/ Medical History: Reports: Hx Ovarian Cysts. Denies: Hx Peritoneal Dialysis GI Medical History: Reports: Hx Gastroesophageal Reflux Disease Psychiatric Medical History: Reports: Hx Anxiety, Hx Depression - Immunizations Immunizations up to date: Yes Hx Diphtheria, Pertussis, Tetanus Vaccination: Yes Review of Systems - Review of Systems Constitutional: See HPI, Chills, Fever, Malaise EENT: See HPI, Nose congestion, Throat pain. denies: Difficulty swallowing Cardiovascular: No symptoms reported Respiratory: See HPI, Cough. denies: Hurts to breathe, Short of breath Gastrointestinal: See HPI, Diarrhea, Nausea. denies: Abdominal pain, Vomiting -: Yes All other systems reviewed and negative Physical Exam - Vital signs Vitals: Temp Pulse Resp BP Pulse Ox 99.0 F 96 16 133/74 H 99 04/22/19 23:19 04/22/19 23:19 04/22/19 23:19 04/22/19 23:19 04/22/19 23:19 Interpretation: Normal - Notes Notes: GENERAL: Alert, interacts well. No acute distress. HEAD: Normocephalic, atraumatic EYES: Pupils equal, round and reactive to light, extraocular movements intact. ENT: Oral mucosa moist, tongue midline. Clear rhinorrhea, right-sided turbinate edema, bilateral tympanic membranes intact without bulging or retraction, no injection. There is cobblestoning the posterior oropharynx. NECK: Full range of motion, supple, trachea midline. Trismus. LUNGS: Clear to auscultation bilaterally, no wheezes, rales or rhonchi, no respiratory distress. HEART: Regular rate and rhythm, no murmurs, gallops, rubs. ABDOMEN: Soft, nontender, nondistended, bowel sounds present in all 4 quadrants. EXTREMITIES: Moves all 4 extremities spontaneously, no edema, radial and dorsalis pedis pulses 2/4 bilaterally. No cyanosis. NEUROLOGICAL: Alert and oriented x3, normal speech. PSYCH: Normal mood, normal affect. SKIN: Warm, Dry, normal turgor, no rashes or lesions noted. Course - Re-evaluation Re-evalutation: 04/23/19 01:38 Flu swabs negative. Chest x-ray negative. Treat patient symptomatically for viral upper respiratory infection with cough. Discharged home. - Vital Signs Vital signs: Temp Pulse Resp BP Pulse Ox 99.0 F 96 16 133/74 H 99 04/22/19 23:19 04/22/19 23:19 04/22/19 23:19 04/22/19 23:19 04/22/19 23:19 Discharge - Discharge Clinical Impression: Viral upper respiratory tract infection with cough, Nausea without vomiting Condition: Stable Disposition: HOME, SELF-CARE Additional Instructions: Viral Syndrome The physician has diagnosed a viral infection. Viruses not only cause "colds," but can cause many different symptoms including generalized aching, fever, headache, cough, diarrhea, nausea, vomiting, and fatigue. I have prescribed Phenergan for nausea and Tessalon Perles for cough. The treatment, for the most part, is simply relief of symptoms. This means that antibiotics are usually not given. Rest, fluids, pain medications and, occasionally, medication for the specific symptoms that are most bothersome will be prescribed. Use good handwashing to avoid passing the virus to others. Shared toys should be cleaned with disinfectant. Clean the toilets, sinks, and counter surfaces in bathrooms. Launder clothing in hot water. Contact the physician if you develop any new or unusual symptoms such as severe headache, stiff neck, high fever, chest pain, productive cough, or shortness of breath. You should be rechecked if you don't see marked improvement within seven to 10 days. Please use nasal saline rinses such as a NetiPot or NeilMed Sinus Rinses. Please use nasal steroid such as Flonase 1 squirt per nostril twice a day to decrease inflammation and swelling. Please also use [id number] decongestants according to their directions on the box such as Sudafed during the day and Benadryl at night. Prescriptions: Benzonatate [Tessalon Perles 100 mg Capsule] 100 mg PO Q8HP PRN #40 capsule PRN Reason: Fluticasone Propionate [Flonase Nasal Bristow 50 Mcg/Bristow 16 gm] 1 spray NASL Q12 #1 inhaler Promethazine HCl [Phenergan 25 mg Tablet] 1 - 2 tab PO Q6H PRN #15 tablet PRN Reason: Forms: Return to Work Referrals: MAXIMUS CINTRON MD [Primary Care Provider] - Follow up as needed
[2019-04-23 02:00] VITALS: BP 125/64
== END 2019-04-23 02:00 | disposition home or self-care (01) ==
LOC: ER 23:11
DX: J06.9 Acute upper respiratory infection, unspecified (principal); B97.89 Other viral agents as the cause of diseases classified elsewhere; R11.0 Nausea; R50.9 Fever, unspecified; R05 Cough; R07.9 Chest pain, unspecified; R19.7 Diarrhea, unspecified; F17.200 Nicotine dependence, unspecified, uncomplicated; J45.909 Unspecified asthma, uncomplicated
CPT/HCPCS: 71046; 87804; 99283

== ENCOUNTER 2019-04-25 00:21 | Emergency (ER) | payer SELFPAY ==
[2019-04-25] MEDS ORDERED: ACETAMINOPHEN 325 MG TABLET PO ONE (00:37)
[2019-04-25 01:47] LABS: A TYPE INFLUENZA AG NEGATIVE (NEGATIVE); B INFLUENZA AG POSITIVE (NEGATIVE)
[2019-04-25] MEDS ORDERED: PROMETHAZINE HCL 25 MG TABLET PO ONE (01:58)
[2019-04-25] MEDS ORDERED: HYDROCODONE BIT/HOMATROPINE 5-1.5 MG TABLET PO ONE (01:59)
--- NOTE | 2019-04-25 02:02 | ER Document Report ---
ED General - General Chief Complaint: Fever Stated Complaint: FEVER/COUGH/VOMITING Time Seen by Provider: 04/25/19 01:47 Primary Care Provider: MAXIMUS CINTRON MD [Primary Care Provider] - Follow up as needed Mode of Arrival: Ambulatory Notes: 33-year-old black female arrives by POV after having 2 days of fever chills sore throat rhinorrhea myalgias nonproductive cough after being exposed to influenza B from her niece. Patient works at [employer] and needs a work note. She also complains of cephalgia. She denies any nuchal rigidity or mid back pain. Patient was negative for influenza when she was here on 23 April but tonight she is positive for influenza B TRAVEL OUTSIDE OF THE [place] IN LAST 30 DAYS: No - HPI Onset: This morning - Related Data Allergies/Adverse Reactions: No Known Allergies Allergy (Verified 03/04/19 07:27) Home Medications: flonase qday. motrin, tessalon perles, prn Past Medical History - General Information source: Patient - Social History Smoking Status: Current Every Day Smoker Cigarette use (# per day): Yes Chew tobacco use (# tins/day): No Smoking Education Provided: No Frequency of alcohol use: Occasional Lives with: Alone - Boyfriend Family History: DM, Hyperlipidemia, Hypertension, Malignancy Patient has suicidal ideation: No Patient has homicidal ideation: No - Past Medical History Cardiac Medical History: Reports: None Pulmonary Medical History: Reports: Hx Asthma, Hx Bronchitis, Hx Pneumonia EENT Medical History: Reports: None Neurological Medical History: Reports: None Endocrine Medical History: Reports: None Renal/ Medical History: Reports: Hx Ovarian Cysts. Denies: Hx Peritoneal Dialysis Malignancy Medical History: Reports: None GI Medical History: Reports: None, Hx Gastroesophageal Reflux Disease Psychiatric Medical History: Reports: Hx Anxiety, Hx Depression - Immunizations Immunizations up to date: Yes Hx Diphtheria, Pertussis, Tetanus Vaccination: Yes Review of Systems - Review of Systems Constitutional: Fever, Malaise, Weakness EENT: Nose congestion, Sinus pressure, Throat pain Cardiovascular: Dizziness, Lightheaded Respiratory: Cough Gastrointestinal: Nausea. denies: Abdomen distended, Abdominal pain, Vomiting, Constipation Genitourinary: No symptoms reported Female Genitourinary: No symptoms reported Musculoskeletal: No symptoms reported Skin: No symptoms reported Hematologic/Lymphatic: No symptoms reported Neurological/Psychological: No symptoms reported Physical Exam - Vital signs Vitals: Temp Pulse Resp BP Pulse Ox 100.9 F H 110 H 16 129/89 H 98 04/25/19 00:25 04/25/19 00:25 04/25/19 00:04/25/19 00:04/25/19 00:25 Interpretation: Tachycardic, Febrile - General General appearance: Other - Appears sick - HEENT Head: Normocephalic Eyes: Normal Conjunctiva: Normal Cornea: Normal Extraocular movements intact: Yes Eyelashes: Normal Pupils: PERRL Nasal: Clear rhinorrhea Mucous membranes: Moist Pharynx: Erythema Neck: Normal - Respiratory Respiratory status: No respiratory distress Chest status: Nontender Breath sounds: Normal Chest palpation: Normal - Cardiovascular Rhythm: Tachycardia Heart sounds: Normal auscultation Murmur: No Friction rub: No Kortney's crunch: No - Abdominal Inspection: Normal Distension: No distension Bowel sounds: Normal Tenderness: Nontender - Extremities General upper extremity: Normal inspection General lower extremity: Normal inspection - Neurological Neuro grossly intact: Yes Cognition: Normal Orientation: AAOx4 Jennings Coma Scale Eye Opening: Spontaneous Davon Coma Scale Verbal: Oriented Jennings Coma Scale Motor: Obeys Commands Jennings Coma Scale Total: 15 Speech: Normal Cranial nerves: Normal - Psychological Associated symptoms: Normal affect - Skin Skin Temperature: Warm Skin Moisture: Dry Course - Vital Signs Vital signs: Temp Pulse Resp BP Pulse Ox 100.9 F H 110 H 16 129/89 H 98 04/25/19 00:25 04/25/19 00:25 04/25/19 00:04/25/19 00:25 04/25/19 00:25 Critical Care Note - Critical Care Note Total time excluding time spent on procedures (mins): 30 Comments: I discussed findings of positive influenza B with patient and patient was provided with medications prior to discharge; she appears to understand this. She will be written for off work note medications and advised her not to drive or do dangerous machinery while using medications Discharge - Discharge Clinical Impression: URI (upper respiratory infection), Influenza B Condition: Good Disposition: HOME, SELF-CARE Additional Instructions: Off work as directed clean anything you touch with Lysol wipes and return to ER if symptoms worsen. Take medicines as directed encourage fluids like chamomile tea/regular tea and avoid milk and meat products. Your symptoms may progress into a respiratory bronchitis ; avoid immunocompromised people as you are now contagious. Prescriptions: Hydrocodone Bit/Homatropine [Hycodan Syrup 5-1.5 mg/5 ml Ud Cup] 5 ml PO Q4HP PRN #120 ml PRN Reason: Levofloxacin [Levaquin 750 mg Tablet] 750 mg PO DAILY #10 tablet Forms: Return to Work Referrals: MAXIMUS CINTRON MD [Primary Care Provider] - Follow up as needed
[2019-04-25 02:09] VITALS: BP 142/77
== END 2019-04-25 02:20 | disposition home or self-care (01) ==
LOC: ER 00:21
DX: J11.1 Influenza due to unidentified influenza virus with other respiratory manifestations (principal); R50.9 Fever, unspecified; R11.10 Vomiting, unspecified; F17.210 Nicotine dependence, cigarettes, uncomplicated
CPT/HCPCS: 87070; 87804; 87880; 99285

== ENCOUNTER 2019-09-24 11:36 | Emergency (ER) | payer SELFPAY ==
[2019-09-24 11:45] VITALS: BP 140/76
--- NOTE | 2019-09-24 12:22 | ER Document Report ---
HPI - HPI Time Seen by Provider: 09/24/19 12:12 Pain Level: 2 Context: Patient is a 33-year-old female who presents emergency department with a chief complaint of left neck pain. Patient reports the symptoms have been present for 2 days. Patient reports she is currently on amoxicillin and does take her last dose today for right dental infection. Patient reports her right dental pain has improved. Patient reports that she did stop taking her Analy when she ini tiated the amoxicillin as she does not like to take multiple medications at once. Patient takes Flonase. Patient reports she does have severe allergies. Patient denies difficulty breathing or swallowing. Denies sore throat or cough. Denies fever. Patient reports she does feel like she has soreness to the left side of her neck. - REPRODUCTIVE Reproductive: DENIES: : Past Medical History - General Information source: Patient - Social History Smoking Status: Current Every Day Smoker Chew tobacco use (# tins/day): No Frequency of alcohol use: None Drug Abuse: None Family History: DM, Hyperlipidemia, Hypertension, Malignancy - Past Medical History Cardiac Medical History: Reports: None Pulmonary Medical History: Reports: Hx Asthma, Hx Bronchitis, Hx Pneumonia EENT Medical History: Reports: None Neurological Medical History: Reports: None Endocrine Medical History: Reports: None Renal/ Medical History: Reports: Hx Ovarian Cysts. Denies: Hx Peritoneal Dialysis Malignancy Medical History: Reports: None GI Medical History: Reports: Hx Gastroesophageal Reflux Disease Musculoskeletal Medical History: Reports None Skin Medical History: Reports None Psychiatric Medical History: Reports: Hx Anxiety, Hx Depression Traumatic Medical History: Reports: None Infectious Medical History: Reports: None Past Surgical History: Reports: None - Immunizations Immunizations up to date: Yes Hx Diphtheria, Pertussis, Tetanus Vaccination: Yes Vertical Provider Document - CONSTITUTIONAL Agree With Documented VS: Yes Exam Limitations: No Limitations General Appearance: No Apparent Distress - INFECTION CONTROL TRAVEL OUTSIDE OF THE [place] IN LAST 30 DAYS: No - HEENT Notes: GENERAL: Well-appearing, well-nourished and in no acute distress. HEAD: Atraumatic, normocephalic. EYES: Pupils equal round and reactive to light, extraocular movements intact, sclera anicteric, conjunctiva are normal. ENT: Right TM unremarkable, Left TM is not erythematous or edematous, left TM does have fluid posteriorly, ear canal is patent without drainage, nares patent, oropharynx clear without exudates. Moist mucous membranes. NECK: Normal range of motion, supple, superficial cervical lymph node palpated on the left. LUNGS: Breath sounds clear to auscultation bilaterally and equal. No wheezes rales or rhonchi. HEART: Regular rate and rhythm without murmurs, rubs or gallops. ABDOMEN: Soft, nontender, normoactive bowel sounds. No guarding, no rebound. No masses appreciated. BACK: No cervical, thoracic, lumbar midline tenderness. No saddle anesthesia, normal distal neurovascular exam. GENITOURINARY: Deferred. EXTREMITIES: Normal range of motion, no pitting or edema. No clubbing or cyanosis. NEUROLOGICAL: Cranial nerves II through XII grossly intact. Normal speech, normal gait. PSYCH: Normal mood, normal affect. SKIN: Warm, Dry, normal turgor, no rashes or lesions noted. Course - Re-evaluation Re-evalutation: 09/24/19 12:58 Patient states she had stopped taking Analy as she did not want to take multiple antibiotics. I did inform her to start taking this as this is antihistamine and she does need to use this daily for severe allergies. Patient does not have signs of infection at this time. Patient currently being treated on amoxicillin for right dental infection. Today is her last dose of the antibiotic. Patient given strict return precautions. Patient encouraged to continue using Flonase as well. - Vital Signs Vital signs: Temp Pulse Resp BP Pulse Ox 97.9 F 83 16 140/76 H 97 09/24/19 11:43 09/24/19 11:43 09/24/19 11:43 09/24/19 11:43 09/24/19 11:43 Discharge - Discharge Clinical Impression: Left ear pain, Left cervical lymphadenopathy Otitis media with effusion Qualifiers: Laterality: left Qualified Code(s): H65.92 - Unspecified nonsuppurative otitis media, left ear Condition: Stable Disposition: HOME, SELF-CARE Additional Instructions: *Today was in the emergency department for left neck pain. You do have an enlarged lymph node located on the left side of your neck. This was the area of tenderness noted during your examination. Lymph nodes do get enlarged when your body is fighting off infection. You did have some fluid behind the left ear. I would start taking your Analy as well as the Flonase today and consistently. Finish your last dose of antibiotic for your recent dental infection. Please return to the emergency department if you develop fever, severe ear pain, ear drainage or any worsening signs or symptoms. Referrals: MAXIMUS CINTRON MD [Primary Care Provider] - Follow up as needed
== END 2019-09-24 12:20 | disposition home or self-care (01) ==
LOC: ER 11:36
DX: H65.92 Unspecified nonsuppurative otitis media, left ear (principal); H92.02 Otalgia, left ear; R59.0 Localized enlarged lymph nodes; M54.2 Cervicalgia; F17.200 Nicotine dependence, unspecified, uncomplicated; J45.909 Unspecified asthma, uncomplicated
CPT/HCPCS: 99283

== ENCOUNTER 2019-10-11 01:20 | Emergency (ER) | payer SELFPAY ==
--- NOTE | 2019-10-11 03:22 | RADIOLOGY REPORT (SQ) ---
EXAM DESCRIPTION: XR CHEST 2 VIEWS COMPLETED DATE/TME: 10/11/2019 00:00 CLINICAL HISTORY: chest pain COMPARISON: 04/23/2019 FINDINGS: Frontal and lateral views of the chest. Cardiomediastinal silhouette: Normal size and contour. Lungs: Patchy right basilar opacities. No pneumothorax or pleural effusion. Bones: No acute osseous abnormality. Upper abdomen: No abnormality identified. IMPRESSION: 1. Mild patchy right basilar opacities may represent developing pneumonic process.
[2019-10-11 04:29] LABS: ABSOLUTE BASOPHILS # (AUTO) 0.1 10^3/uL (0.0-0.2); ABSOLUTE EOSINOPHILS # (AUTO) 0.3 10^3/uL (0.0-0.6); ABSOLUTE LYMPHOCYTES (AUTO) 4.3 10^3/uL (0.5-4.7); ABSOLUTE MONOCYTES (AUTO) 0.7 10^3/uL (0.1-1.4); ABSOLUTE NEUT (AUTO) 5.2 10^3/uL (1.7-8.2); BASOPHILS % (AUTO) 0.8 % (0-2); EOSINOPHILS % (AUTO) 2.8 % (0-6); HEMATOCRIT 40.2 % (36.0-47.0); HEMOGLOBIN 14.1 g/dL (12.0-15.5); LYMPHOCYTES % (AUTO) 40.6 % (13-45); MEAN CORPUSCULAR HEMOGLOBIN 28.6 pg (27.0-33.4); MEAN CORPUSCULAR HGB CONC 35.1 g/dL (32.0-36.0); MEAN CORPUSCULAR VOLUME 82 fl (80-97); MONOCYTES % (AUTO) 6.6 % (3-13); PLATELET COUNT 286 10^3/uL (150-450); RED BLOOD COUNT 4.93 10^6/uL (3.72-5.28); RED CELL DISTRIBUTION WIDTH 14.2 % (11.5-14.0); SEGMENTED NEUTROPHILS % (AUTO) 49.2 % (42-78); TOTAL CELLS COUNTED % (AUTO) 100 %; WHITE BLOOD COUNT 10.7 10^3/uL (4.0-10.5)
--- NOTE | 2019-10-11 04:34 | ER Document Report ---
ED General - General Chief Complaint: Chest Pain Stated Complaint: CHEST PAIN Time Seen by Provider: 10/11/19 04:23 Primary Care Provider: MAXIMUS CINTRON MD [Primary Care Provider] - Follow up as needed Notes: Patient is a 34-year-old female that comes emergency department for chief complaint of pain on the right side of her chest. She states that she had a couple of drinks of alcohol, went to sleep, and then woke up feeling a sharp discomfort sensation along the right side of her chest. She states this did resolve, she states she thinks it is related to heartburn but she is not feeling any heartburn sensations, she denies any current complaints. She denies difficulty breathing, cough, fever, injury, nausea, vomiting, abdominal pain. She smokes, drinks alcohol only occasionally and socially, denies any recreational drugs. Past medical history of PCOS and obesity, denies any medical history otherwise. TRAVEL OUTSIDE OF THE [place] IN LAST 30 DAYS: No - Related Data Allergies/Adverse Reactions: No Known Allergies Allergy (Verified 09/24/19 12:08) Home Medications: steve d, flonase Past Medical History - General Information source: Patient - Social History Smoking Status: Current Every Day Smoker Smoking Education Provided: Yes - <3 min Frequency of alcohol use: Social Drug Abuse: None Lives with: Family Family History: DM, Hyperlipidemia, Hypertension, Malignancy Patient has homicidal ideation: No Pulmonary Medical History: Reports: Hx Asthma, Hx Bronchitis, Hx Pneumonia Renal/ Medical History: Reports: Hx Ovarian Cysts. Denies: Hx Peritoneal Dialysis GI Medical History: Reports: Hx Gastroesophageal Reflux Disease Psychiatric Medical History: Reports: Hx Anxiety, Hx Depression - Immunizations Immunizations up to date: Yes Hx Diphtheria, Pertussis, Tetanus Vaccination: Yes Review of Systems - Review of Systems Constitutional: No symptoms reported EENT: No symptoms reported Cardiovascular: See HPI Respiratory: See HPI Gastrointestinal: No symptoms reported Genitourinary: No symptoms reported Female Genitourinary: No symptoms reported Musculoskeletal: No symptoms reported Skin: No symptoms reported Hematologic/Lymphatic: No symptoms reported Neurological/Psychological: No symptoms reported Physical Exam - Vital signs Vitals: Temp Pulse Resp BP Pulse Ox 98.5 F 90 20 145/80 H 99 10/11/19 01:51 10/11/19 01:51 10/11/19 01:51 10/11/19 01:51 10/11/19 01:51 - Notes Notes: GENERAL: Alert, interacts well. No acute distress. HEAD: Normocephalic, atraumatic. EYES: Pupils equal, round, and reactive to light. Extraocular movements intact. ENT: Oral mucosa moist, tongue midline. Oropharynx unremarkable. Airway patent. Nares patent, sinuses non-tender NECK: Full range of motion. Supple. Trachea midline. No lymphadenopathy. LUNGS: Clear to auscultation bilaterally, no wheezes, rales, or rhonchi. No respiratory distress. Non-tender chest wall. HEART: Regular rate and rhythm. No murmur ABDOMEN: Soft, non-tender. Non-distended. Bowel sounds present in all 4 quadrants. GENITOURINARY: Deferred EXTREMITIES: Moves all 4 extremities spontaneously. No edema, normal radial and dorsalis pedis pulses bilaterally. No cyanosis. BACK: no cervical, thoracic, lumbar midline tenderness. No saddle anesthesia, normal distal neurovascular exam. Moves all extremities in full range of motion. NEUROLOGICAL: Alert and oriented x3. Normal speech. Cranial nerves II through XII grossly intact. Strength 5/5 in all extremities. PSYCH: Normal affect, normal mood. SKIN: Warm, dry, normal turgor. No rashes or lesions noted. Course - Re-evaluation Re-evalutation: Patient sleeping and easily aroused. She actually is no symptoms on my evaluation, had some discomfort in the right side of her chest earlier. EKG unremarkable, troponin is not elevated, CBC and chemistry are unremarkable, test and lipase are unremarkable. Vital signs unremarkable. Chest x- ray actually does show possible developing pneumonia in the right lung where patient symptoms are occurring. Because of this I discussed options with patient. Decision was made to cover her with doxycycline, we discussed COVID-19 testing but this was not performed based on her not having an immunocompromise condition and no other additional symptoms suggesting viral infection. Discusse d expectations, follow-up, and return precautions. Patient states understanding and agreement. Stable and well-appearing at time of discharge. - Vital Signs Vital signs: Temp Pulse Resp BP Pulse Ox 97.6 F 85 16 104/55 L 98 10/11/19 05:58 10/11/19 05:58 10/11/19 05:58 10/11/19 05:58 07/07/20 05:58 - Laboratory Result Diagrams: 10/11/19 04:07 10/11/19 04:07 Laboratory results interpreted by me: 10/11/19 10/11/19 04:07 04:07 WBC 10.7 H RDW 14.2 H Glucose 111 H Creatine Kinase 183 H Discharge - Discharge Clinical Impression: Right-sided chest pain Pneumonia Qualifiers: Pneumonia type: due to unspecified organism Laterality: right Lung location: unspecified part of lung Qualified Code(s): J18.9 - Pneumonia, unspecified organism Condition: Stable Disposition: HOME, SELF-CARE Additional Instructions: Your work-up does indicate a right-sided pneumonia. This is most likely the cause of your pain. Take antibiotics as prescribed, take Tylenol and/or ibuprof en for pain if needed, drink plenty of fluids, rest. Symptoms should simply resolve. Follow-up with primary care. Return if you worsen including spiking fevers, difficulty breathing, vomiting, or any other concerning or worsening symptoms. Prescriptions: Doxycycline Hyclate [Vibramycin 100 mg Tablet] 100 mg PO BID 7 Days #14 tablet Forms: Return to Work Referrals: MAXIMUS CINTRON MD [Primary Care Provider] - Follow up as needed
[2019-10-11 04:43] LABS: ALBUMIN 4.3 g/dL (3.5-5.0); ALKALINE PHOSPHATASE 88 U/L (38-126); ANION GAP 5 (5-19); ASPARTATE AMINO TRANSFERASE 24 U/L (14-36); BILIRUBIN,TOTAL 0.5 mg/dL (0.2-1.3); BLOOD UREA NITROGEN 17 mg/dL (7-20); CALCIUM 9.7 mg/dL (8.4-10.2); CARBON DIOXIDE 27 mmol/L (22-30); CHLORIDE 106 mmol/L (98-107); CREATINE KINASE 183 U/L (30-135); GLUCOSE 111 mg/dL (75-110); POTASSIUM 4.4 mmol/L (3.6-5.0); TOTAL PROTEIN 7.5 g/dL (6.3-8.2)
[2019-10-11 04:54] LABS: CREATINE KINASE MB 0.85 ng/mL (<4.55)
[2019-10-11 04:56] LABS: TROPONIN I < 0.012 ng/mL
[2019-10-11] MEDS ORDERED: DOXYCYCLINE HYCLATE 100 MG TABLET PO ONE (05:31)
[2019-10-11 06:00] VITALS: BP 104/55
--- NOTE | 2019-10-11 07:15 | EKG REPORT ---
SEVERITY:- NORMAL ECG - SINUS RHYTHM : Confirmed by: Torsten Rhodes MD 11-Oct-2019 07:14:35
--- NOTE | 2019-10-11 07:16 | EKG REPORT ---
SEVERITY:- DEFECTIVE ECG - SINUS RHYTHM NONSPECIFIC T ABNORMALITIES, LATERAL LEADS : Confirmed by: Torsten Rhodes MD 11-Oct-2019 07:15:25
== END 2019-10-11 06:01 | disposition home or self-care (01) ==
LOC: ER 01:20
DX: J18.9 Pneumonia, unspecified organism (principal); R07.9 Chest pain, unspecified; E28.2 Polycystic ovarian syndrome; E66.9 Obesity, unspecified; F17.200 Nicotine dependence, unspecified, uncomplicated; Z79.899 Other long term (current) drug therapy; J45.909 Unspecified asthma, uncomplicated
CPT/HCPCS: 36415; 71046; 80053; 82550; 82553; 83690; 84484; 84703; 85025; 93005; 93010; 99285

== ENCOUNTER 2019-10-14 01:53 | Emergency (ER) | payer SELFPAY ==
[2019-10-14] MEDS ORDERED: SUCRALFATE 1 GM TABLET PO ONE (02:42)
[2019-10-14] MEDS ORDERED: FAMOTIDINE 20 MG TABLET PO ONE (02:42)
[2019-10-14] MEDS ORDERED: ONDANSETRON 4 MG TAB.RAPDIS PO ONE (02:43)
--- NOTE | 2019-10-14 02:45 | ER Document Report ---
ED General - General Chief Complaint: Chest Pain Stated Complaint: CHEST PAINS/STOMACH/NAUSEA Time Seen by Provider: 10/14/19 02:20 Primary Care Provider: MAXIMUS CINTRON MD [Primary Care Provider] - Follow up as needed Notes: Patient is a 35-year-old female that comes emergency department for chief complaint of chest and upper abdominal pain. Patient states that she has had occasional cough, nausea, and although the pain has mainly been on the right side of her chest she occasionally will feel pain radiate over the left side of her chest. She was seen by me about 3 days ago and diagnosed with pneumonia, p laced on doxycycline. She denies spiking fevers, difficulty breathing, current pain in the abdomen or chest, headache, neck stiffness, sore throat, difficulty swallowing. She smokes, she drinks occasional alcohol, denies recreational drugs. She denies any prescribed medications, past medical history of PCOS and obesity. She denies any recent travel or obvious sick contacts. TRAVEL OUTSIDE OF THE [place] IN LAST 30 DAYS: No - Related Data Allergies/Adverse Reactions: No Known Allergies Allergy (Verified 09/24/19 12:08) Past Medical History - General Information source: Patient - Social History Smoking Status: Never Smoker Frequency of alcohol use: None Drug Abuse: None Lives with: Family Family History: DM, Hyperlipidemia, Hypertension, Malignancy Pulmonary Medical History: Reports: Hx Asthma, Hx Bronchitis, Hx Pneumonia Renal/ Medical History: Reports: Hx Ovarian Cysts. Denies: Hx Peritoneal Dialysis GI Medical History: Reports: Hx Gastroesophageal Reflux Disease Psychiatric Medical History: Reports: Hx Anxiety, Hx Depression - Immunizations Immunizations up to date: Yes Hx Diphtheria, Pertussis, Tetanus Vaccination: Yes Review of Systems - Review of Systems Constitutional: See HPI EENT: No symptoms reported Cardiovascular: See HPI Respiratory: See HPI Gastrointestinal: See HPI Genitourinary: No symptoms reported Female Genitourinary: No symptoms reported Musculoskeletal: No symptoms reported Skin: No symptoms reported Hematologic/Lymphatic: No symptoms reported Neurological/Psychological: No symptoms reported Physical Exam - Vital signs Vitals: Temp Pulse Resp BP Pulse Ox 98.4 F 96 16 151/95 H 97 10/14/19 02:00 10/14/19 02:00 10/14/19 02:00 10/14/19 02:00 10/14/19 02:00 - Notes Notes: GENERAL: Alert, interacts well. No acute distress. HEAD: Normocephalic, atraumatic. EYES: Pupils equal, round, and reactive to light. Extraocular movements intact. ENT: Oral mucosa moist, tongue midline. Oropharynx unremarkable. Airway patent. Nares patent, sinuses non-tender, ear canals unremarkable, TM's intact. NECK: Full range of motion. Supple. Trachea midline. No lymphadenopathy. LUNGS: Clear to auscultation bilaterally, no wheezes, rales, or rhonchi. No respiratory distress. Very mild chest wall tenderness HEART: Regular rate and rhythm. No murmur ABDOMEN: Questionable/minimal epigastric and left upper quadrant tenderness, patient reports pain but no pain is noted. No guarding or rigidity, no distention, bowel sounds unremarkable. GENITOURINARY: Deferred EXTREMITIES: Moves all 4 extremities spontaneously. No edema, normal radial and dorsalis pedis pulses bilaterally. No cyanosis. BACK: no cervical, thoracic, lumbar midline tenderness. No saddle anesthesia, normal distal neurovascular exam. Moves all extremities in full range of motion. NEUROLOGICAL: Alert and oriented x3. Normal speech. Cranial nerves II through XII grossly intact. Strength 5/5 in all extremities. PSYCH: Patient speaks slightly anxiously and is very apologetic but otherwise unremarkable SKIN: Warm, dry, normal turgor. No rashes or lesions noted. Course - Re-evaluation Re-evalutation: Patient had a very recent work-up for the same including EKG and troponin which was negative. Very low suspicion of ACS based on overall presentation. Patient is very well-appearing on my exam. Lungs clear, no hypoxia, tachycardia, or fever. Patient with occasional cough, has been diagnosed with pneumonia, has been on doxycycline, repeat chest x-ray shows no concerning findings now, this is an improvement. Very low suspicion of sepsis, patient's abdomen is soft and benign, she tolerated Zofran, Carafate, and Pepcid with resolution of her symptoms. Because of her developing symptoms and recent hospital visit we did discuss inpatient will be tested for COVID-19 with quarantine instructions, otherwise patient appears to be resolving symptoms from her previous pneumonia. Patient is very satisfied with this, she has no compla ints on my reevaluation, discussed follow-up and return precautions. Patient states understanding and agreement. - Vital Signs Vital signs: Temp Pulse Resp BP Pulse Ox 97.6 F 65 16 129/83 H 97 10/14/19 05:04 10/14/19 05:04 10/14/19 05:04 10/14/19 05:04 10/14/19 05:04 - Laboratory Result Diagrams: 10/14/19 03:05 10/14/19 03:05 Laboratory results interpreted by me: 10/14/19 10/14/19 03:05 03:05 WBC 10.9 H RDW 14.2 H Lymph % (Auto) 47.0 H Absolute Lymphs (auto) 5.1 H Glucose 122 H Discharge - Discharge Clinical Impression: Cough, Chest discomfort, Nausea, Upper abdominal pain Pneumonia Qualifiers: Pneumonia type: due to unspecified organism Laterality: right Lung location: unspecified part of lung Qualified Code(s): J18.9 - Pneumonia, unspecified organism Condition: Stable Disposition: HOME, SELF-CARE Additional Instructions: The pneumonia is clearing, your overall evaluation and work-up is reassuring. Take Zofran with the medication if needed for nausea. You have been tested for COVID-19 and you will be contacted with any results. Please follow the instructions listed below for this. Come back if you worsen including vomiting, difficulty breathing, spiking fevers, or any other concerning or worsening symptoms. As a person under investigation for COVID-19, the [place] Department of Health and Human Services (division on public health) advises you to adhere to the following guidance until your test results are reported to you. If your test result is positive, you will receive additional information from your provider and your local health department at that time. Remain at home until you are cleared by the health provider or public health authorities. Keep a log of visitors to your home, notify any visitors to your home of your isolation status. If you plan to move to a new address or leave the [facility], notify the local health department in your County. Call your Doctor or seek care if you have an urgent medical need. Before seeking medical care, call him to get instructions from the provider before arriving at the medical office, clinic, or hospital. Notify them that you are being tested for the virus (COVID-19) so that arrangements can be made, as necessary, to prevent transmission to others in the healthcare setting. Next, notify the local health department in your county. If a medical emergency arises and you need to call 911, inform the first responders that you are being tested for the virus that causes COVID-19. Next, notify the local health department in your county. Prescriptions: Ondansetron [Zofran Odt 4 mg Tablet] 1 - 2 tab PO Q4H PRN #15 tab.rapdis PRN Reason: For Nausea/Vomiting Forms: Return to Work Referrals: MAXIMUS CINTRON MD [Primary Care Provider] - Follow up as needed
[2019-10-14 03:17] LABS: ABSOLUTE BASOPHILS # (AUTO) 0.1 10^3/uL (0.0-0.2); ABSOLUTE EOSINOPHILS # (AUTO) 0.2 10^3/uL (0.0-0.6); ABSOLUTE LYMPHOCYTES (AUTO) 5.1 10^3/uL (0.5-4.7); ABSOLUTE MONOCYTES (AUTO) 0.8 10^3/uL (0.1-1.4); ABSOLUTE NEUT (AUTO) 4.6 10^3/uL (1.7-8.2); BASOPHILS % (AUTO) 1.1 % (0-2); EOSINOPHILS % (AUTO) 2.2 % (0-6); HEMATOCRIT 41.2 % (36.0-47.0); HEMOGLOBIN 14.5 g/dL (12.0-15.5); MEAN CORPUSCULAR HEMOGLOBIN 28.7 pg (27.0-33.4); MEAN CORPUSCULAR HGB CONC 35.2 g/dL (32.0-36.0); MEAN CORPUSCULAR VOLUME 82 fl (80-97); MONOCYTES % (AUTO) 7.2 % (3-13); PLATELET COUNT 281 10^3/uL (150-450); RED BLOOD COUNT 5.05 10^6/uL (3.72-5.28); RED CELL DISTRIBUTION WIDTH 14.2 % (11.5-14.0); SEGMENTED NEUTROPHILS % (AUTO) 42.5 % (42-78); TOTAL CELLS COUNTED % (AUTO) 100 %; WHITE BLOOD COUNT 10.9 10^3/uL (4.0-10.5)
[2019-10-14 03:27] LABS: ALBUMIN 4.3 g/dL (3.5-5.0); ALKALINE PHOSPHATASE 87 U/L (38-126); ANION GAP 7 (5-19); ASPARTATE AMINO TRANSFERASE 24 U/L (14-36); BILIRUBIN,TOTAL 0.4 mg/dL (0.2-1.3); BLOOD UREA NITROGEN 18 mg/dL (7-20); CALCIUM 9.6 mg/dL (8.4-10.2); CARBON DIOXIDE 26 mmol/L (22-30); CHLORIDE 105 mmol/L (98-107); GLUCOSE 122 mg/dL (75-110); POTASSIUM 3.8 mmol/L (3.6-5.0); TOTAL PROTEIN 7.7 g/dL (6.3-8.2)
--- NOTE | 2019-10-14 03:39 | RADIOLOGY REPORT (SQ) ---
EXAM DESCRIPTION: X-ray single view chest. CLINICAL HISTORY: 34 years Female, chest pain, recent pneumonia COMPARISON: 10/11/2019 and 04/23/2019 TECHNIQUE: Single portable x-ray view of the chest performed on 10/14/2019 at 3:14 AM FINDINGS: The lungs are well expanded and are clear. There is no evidence of a pneumothorax. The cardiac silhouette is normal in size and configuration. The mediastinal contours are normal. No acute osseous abnormality is identified. No focal soft tissue abnormalities are seen. Lines and tubes: None. IMPRESSION: No evidence of acute intrathoracic disease.
[2019-10-14] MEDS ORDERED: ONDANSETRON ODT 4 MG TAB (6 TAB/ER DISP) PO PRN (04:25)
[2019-10-14 05:19] VITALS: BP 129/83
== END 2019-10-14 05:20 | disposition home or self-care (01) ==
LOC: ER 01:53
DX: J18.9 Pneumonia, unspecified organism (principal); R10.10 Upper abdominal pain, unspecified; R07.9 Chest pain, unspecified; R11.0 Nausea; Z20.828 Contact with and (suspected) exposure to other viral communicable diseases
CPT/HCPCS: 99285; 36415; 83690; 85025; 87635; 80053; 71045; S0119; C9803

== ENCOUNTER 2020-01-12 03:08 | Emergency (ER) | payer SELFPAY ==
[2020-01-12 03:15] VITALS: BP 139/77
--- NOTE | 2020-01-12 04:28 | RADIOLOGY REPORT (SQ) ---
COMPLETED DATE/TME: 01/12/2020 03:32 EXAM: Single view chest. INDICATION: SOB. COMPARISON: Chest x-ray: 10/14/2019. FINDINGS: Cardiac silhouette: Unremarkable. Adri: Unremarkable. Lobar consolidation: None. Pleural effusion: None. Pneumothorax: None. Other: None. Bones: Unremarkable. Other: None. IMPRESSION: 1. No acute cardiopulmonary process.
[2020-01-12 04:37] LABS: ABSOLUTE EOSINOPHILS # (AUTO) 0.3 10^3/uL (0.0-0.6); ABSOLUTE MONOCYTES (AUTO) 0.6 10^3/uL (0.1-1.4); ABSOLUTE NEUT (AUTO) 3.4 10^3/uL (1.7-8.2); BASOPHILS % (AUTO) 0.6 % (0-2); EOSINOPHILS % (AUTO) 3.1 % (0-6); HEMOGLOBIN 14.2 g/dL (12.0-15.5); LYMPHOCYTES % (AUTO) 48.4 % (13-45); MEAN CORPUSCULAR HEMOGLOBIN 29.2 pg (27.0-33.4); MEAN CORPUSCULAR HGB CONC 36.5 g/dL (32.0-36.0); MEAN CORPUSCULAR VOLUME 80 fl (80-97); MONOCYTES % (AUTO) 6.7 % (3-13); PLATELET COUNT 272 10^3/uL (150-450); RED BLOOD COUNT 4.87 10^6/uL (3.72-5.28); RED CELL DISTRIBUTION WIDTH 13.9 % (11.5-14.0); SEGMENTED NEUTROPHILS % (AUTO) 41.2 % (42-78); TOTAL CELLS COUNTED % (AUTO) 100 %; WHITE BLOOD COUNT 8.3 10^3/uL (4.0-10.5)
[2020-01-12 04:40] LABS: APPEARANCE,URINE SLIGHTLY-CLOUDY; BILIRUBIN,URINE NEGATIVE (NEGATIVE); COLOR,URINE AMBER; GLUCOSE, URINE NEGATIVE (NEGATIVE); KETONES,URINE NEGATIVE (NEGATIVE); LEUKOCYTE ESTERASE,URINE NEGATIVE (NEGATIVE); NITRITE,URINE NEGATIVE (NEGATIVE); PROTEIN,URINE 30 mg/dL (NEGATIVE); URINE SPECIFIC GRAVITY 1.033
[2020-01-12 04:53] LABS: ALBUMIN 3.8 g/dL (3.5-5.0); ALKALINE PHOSPHATASE 103 U/L (38-126); ANION GAP 8 (5-19); ASPARTATE AMINO TRANSFERASE 25 U/L (14-36); BILIRUBIN,DIRECT 0.2 mg/dL (0.0-0.4); BILIRUBIN,TOTAL 0.6 mg/dL (0.2-1.3); BLOOD UREA NITROGEN 11 mg/dL (7-20); CALCIUM 9.2 mg/dL (8.4-10.2); CARBON DIOXIDE 26 mmol/L (22-30); CHLORIDE 104 mmol/L (98-107); GLUCOSE 128 mg/dL (75-110); POTASSIUM 4.2 mmol/L (3.6-5.0); TOTAL PROTEIN 6.8 g/dL (6.3-8.2)
--- NOTE | 2020-01-12 08:54 | EKG REPORT ---
SEVERITY:- BORDERLINE ECG - SINUS RHYTHM PROBABLE LEFT ATRIAL ABNORMALITY : Confirmed by: Catrachita Bailey MD 12-Jan-2020 08:54:33
== END 2020-01-12 06:05 | disposition left against medical advice (07) ==
LOC: ER 03:08
DX: Z53.21 Procedure and treatment not carried out due to patient leaving prior to being seen by health care provider (principal)
CPT/HCPCS: 36415; 71045; 80053; 81001; 85025; 93005; 93010

== ENCOUNTER 2020-01-21 19:51 | Emergency (ER) | payer SELFPAY ==
[2020-01-21] MEDS ORDERED: IPRATROPIUM/ALBUTEROL 0.5-2.5 MG/3 ML AMPUL NEB ONE (20:46)
[2020-01-21] MEDS ORDERED: METHYLPREDNISOLONE INJ 125 MG/2 ML SDV IV ONE (20:48)
--- NOTE | 2020-01-21 20:49 | ER Document Report ---
ED Medical Screen (RME) - General Chief Complaint: Shortness Of Breath Stated Complaint: SHORTNESS OF BREATH AND WHEEZING Time Seen by Provider: 01/21/20 20:33 Primary Care Provider: MAXIMUS CINTRON MD [Primary Care Provider] - Follow up as needed Notes: Patient is a 36-year-old female presents emergency department with a chief complaint of shortness of breath. Patient states that on January 05, she was started on prednisone. Patient states that she finished the whole course of prednisone, but continues to be short of breath. Patient states that she takes Analy every day. She has not taken it today. Patient states that she has been tested for COVID-19 twice and both times were negative. Exam: Expiratory wheezes noted throughout all lung hernández. I have greeted and performed a rapid initial assessment of this patient. A comprehensive ED assessment and evaluation of the patient, analysis of test results and completion of medical decision making process will be conducted by an additional ED providers. TRAVEL OUTSIDE OF THE [place] IN LAST 30 DAYS: No - Related Data Allergies/Adverse Reactions: No Known Allergies Allergy (Verified 01/12/20 03:22) Home Medications: flonase Past Medical History - Social History Chew tobacco use (# tins/day): No Frequency of alcohol use: None Drug Abuse: None Family history: Arthritis, CVA, DM, Hyperlipidemia, Hypertension, Malignancy, Other - Sleep apnea Pulmonary Medical History: Reports: Hx Asthma, Hx Bronchitis, Hx Pneumonia Renal/ Medical History: Reports: Hx Ovarian Cysts. Denies: Hx Peritoneal Dialysis GI Medical History: Reports: Hx Gastroesophageal Reflux Disease Psychiatric Medical History: Reports: Hx Anxiety, Hx Depression - Immunizations Immunizations up to date: Yes Hx Diphtheria, Pertussis, Tetanus Vaccination: Yes Physical Exam - Vital signs Vitals: Temp 99.6 F 01/21/20 19:52 Course - Vital Signs Vital signs: Temp Pulse Resp BP Pulse Ox 97.9 F 86 20 144/85 H 99 01/21/20 20:07 01/21/20 20:07 01/21/20 20:07 01/21/20 20:07 01/21/20 20:07 Doctor's Discharge - Discharge Referrals: MAXIMUS CINTRON MD [Primary Care Provider] - Follow up as needed
[2020-01-21 21:33] LABS: ABSOLUTE BASOPHILS # (AUTO) 0.1 10^3/uL (0.0-0.2); ABSOLUTE EOSINOPHILS # (AUTO) 0.4 10^3/uL (0.0-0.6); ABSOLUTE LYMPHOCYTES (AUTO) 4.8 10^3/uL (0.5-4.7); ABSOLUTE MONOCYTES (AUTO) 0.8 10^3/uL (0.1-1.4); ABSOLUTE NEUT (AUTO) 4.8 10^3/uL (1.7-8.2); BASOPHILS % (AUTO) 0.9 % (0-2); EOSINOPHILS % (AUTO) 3.4 % (0-6); HEMATOCRIT 40.1 % (36.0-47.0); HEMOGLOBIN 14.4 g/dL (12.0-15.5); LYMPHOCYTES % (AUTO) 43.9 % (13-45); MEAN CORPUSCULAR HEMOGLOBIN 28.9 pg (27.0-33.4); MEAN CORPUSCULAR HGB CONC 35.9 g/dL (32.0-36.0); MEAN CORPUSCULAR VOLUME 80 fl (80-97); PLATELET COUNT 282 10^3/uL (150-450); RED BLOOD COUNT 4.98 10^6/uL (3.72-5.28); RED CELL DISTRIBUTION WIDTH 14.1 % (11.5-14.0); SEGMENTED NEUTROPHILS % (AUTO) 44.8 % (42-78); TOTAL CELLS COUNTED % (AUTO) 100 %; WHITE BLOOD COUNT 10.8 10^3/uL (4.0-10.5)
[2020-01-21 21:45] LABS: ALKALINE PHOSPHATASE 98 U/L (38-126); ANION GAP 8 (5-19); ASPARTATE AMINO TRANSFERASE 24 U/L (14-36); BILIRUBIN,DIRECT 0.3 mg/dL (0.0-0.4); BILIRUBIN,TOTAL 0.5 mg/dL (0.2-1.3); BLOOD UREA NITROGEN 13 mg/dL (7-20); CALCIUM 9.8 mg/dL (8.4-10.2); CARBON DIOXIDE 27 mmol/L (22-30); CHLORIDE 103 mmol/L (98-107); GLUCOSE 120 mg/dL (75-110); POTASSIUM 3.9 mmol/L (3.6-5.0)
--- NOTE | 2020-01-21 22:15 | RADIOLOGY REPORT (SQ) ---
EXAM DESCRIPTION: X-ray, single view of the chest. CLINICAL HISTORY: 34 years Female, shortness of breath x2 weeks COMPARISON: Single view of the chest January 12, 2020 FINDINGS: Lungs: Lungs are clear. No pneumonia or edema. No pneumothorax or pleural effusion. Mediastinum: Cardiac and mediastinal silhouette are normal. Bones: Osseous structures are normal. IMPRESSION: No acute process. No significant interval change.
--- NOTE | 2020-01-21 22:34 | ER Document Report ---
ED Respiratory Problem - General Chief Complaint: Shortness Of Breath Stated Complaint: SHORTNESS OF BREATH AND WHEEZING Time Seen by Provider: 01/21/20 20:33 Primary Care Provider: MAXIMUS CINTRON MD [Primary Care Provider] - Follow up in 3-5 days TRAVEL OUTSIDE OF THE [place] IN LAST 30 DAYS: No - HPI Notes: Patient is a 34-year-old female with a past medical history of allergies who presents with wheezing. Patient states she has had wheezing for about 2 weeks. She attributes it to allergies. She saw her PCP 2 weeks ago who prescribed her prednisone. Patient states that did not help her symptoms. She denies any chest pain or shortness of breath. No leg swelling. She is not on control. She has not had any long periods of immobilization or surgeries. Matt arndt has no PE or DVT risk factors. Patient has never been formally diagnosed with asthma. - Related Data Allergies/Adverse Reactions: No Known Allergies Allergy (Verified 01/12/20 03:22) Home Medications: flonase Past Medical History - General Information source: Patient - Social History Smoking Status: Current Every Day Smoker Chew tobacco use (# tins/day): No Frequency of alcohol use: None Drug Abuse: None Family History: DM, Hyperlipidemia, Hypertension, Malignancy Patient has homicidal ideation: No Pulmonary Medical History: Reports: Hx Asthma, Hx Bronchitis, Hx Pneumonia Renal/ Medical History: Reports: Hx Ovarian Cysts. Denies: Hx Peritoneal Dialysis GI Medical History: Reports: Hx Gastroesophageal Reflux Disease Psychiatric Medical History: Reports: Hx Anxiety, Hx Depression - Immunizations Immunizations up to date: Yes Hx Diphtheria, Pertussis, Tetanus Vaccination: Yes Review of Systems - Review of Systems Notes: CONSTITUTIONAL: No fever, fatigue or weight loss. SKIN: No rash. HENT: No congestion, ear pain, or sore throat. EYES: No recent vision problems or eye pain. CARDIOVASCULAR: No chest pain or edema. RESPIRATORY: Positive for cough and wheezing. GASTROINTESTINAL: No abdominal pain, nausea, vomiting, bloody stools or diarrhea. GENITOURINARY: No dysuria. MUSCULOSKELETAL: No joint pain or swelling. LYMPHATIC: No swollen glands. NEUROLOGIC: No seizures. No headache, focal weakness or sensory changes. HEMATOLOGIC: No unusual bruising or bleeding. PSYCHIATRIC: No depression or anxiety. Physical Exam - Vital signs Vitals: Temp 99.6 F 01/21/20 19:52 - General General appearance: Appears well Notes: VITAL SIGNS: Within normal limits. GENERAL: No acute distress, non-toxic appearance. HEAD: Normal with no signs of head trauma. EYES: EOMI, conjunctiva normal, no discharge. EARS: Hearing grossly intact. NOSE: Normal. NECK: Normal range of motion, no tenderness, supple, no lymphadenopathy, No adenopathy, no JVD. CHEST: Wheezing in bilateral upper quadrants. CARDIAC: Regular rate and rhythm. S1 and S2, without murmurs, gallops, or rubs . VASCULAR: No Edema. ABDOMEN: Normal and soft with no tenderness, no masses or pulsatile masses. GENITOURINARY: Normal, No tenderness LYMPATHTIC: No lymphadenopathy noted. MUSCULOSKELETAL: Good range of motion of all major joints. Extremities without clubbing, cyanosis or edema. NEUROLOGICAL: Alert and oriented x 3. No focal sensory or strength deficits. Speech normal. Follows commands appropriately. PSYCHIATRIC: Normal Affect, judgement and mood. SKIN: Normal appearance with no rashes or lesions. Course - Re-evaluation Re-evalutation: 01/21/20 22:33 Patient states she was tested for Covid recently and does not want to be retested as she has no fever or concerning symptoms. She is concerned that she may have asthma and has never been diagnosed. I do not suspect PE in this patient as she has no risk factors. She states she feels much better after nebulizer treatments. Patient's work-up is unremarkable. X-ray does not show pneumonia. She is breathing easy on room air. Patient will be discharged with an inhaler as well as a Z-Justo as she has had the symptoms for about 2 weeks without relief. Patient was told she needs to follow-up with her PCP to monitor for resolution of symptoms. She was given strict return precautions including shortness of breath, chest pain, any worsening symptoms. 01/21/20 23:39 - Vital Signs Vital signs: Temp Pulse Resp BP Pulse Ox 97.9 F 70 16 124/76 98 01/21/20 23:35 01/21/20 23:35 01/21/20 23:35 01/21/20 23:35 01/21/20 23:35 - Laboratory Result Diagrams: 01/21/20 21:19 01/21/20 21:19 Laboratory results interpreted by me: 01/21/20 01/21/20 21:19 21:19 WBC 10.8 H RDW 14.1 H Absolute Lymphs (auto) 4.8 H Glucose 120 H - Diagnostic Test Radiology reviewed: Image reviewed, Reports reviewed Discharge - Discharge Clinical Impression: Wheezing URI (upper respiratory infection) Qualifiers: URI type: unspecified URI Qualified Code(s): J06.9 - Acute upper respiratory infection, unspecified Condition: Stable Disposition: HOME, SELF-CARE Instructions: Upper Respiratory Illness ([facility]) Prescriptions: Albuterol Sulfate [Albuterol Sulfate Hfa] 2 puff IH Q6H PRN #1 hfa.[email or web address] PRN Reason: Azithromycin [Zithromax] 250 mg PO DAILY 5 Days #6 tablet Forms: Return to Work Referrals: MAXIMUS CINTRON MD [Primary Care Provider] - Follow up in 3-5 days
[2020-01-21 23:37] VITALS: BP 124/76
== END 2020-01-21 23:37 | disposition home or self-care (01) ==
LOC: ER 19:51
DX: J06.9 Acute upper respiratory infection, unspecified (principal); R06.02 Shortness of breath; R06.2 Wheezing; F17.200 Nicotine dependence, unspecified, uncomplicated
CPT/HCPCS: 94640; 99284; 96374; 36415; 85025; 81025; 80053; 71045; J2930

== ENCOUNTER 2020-03-02 08:14 | Emergency (ER) | payer SELFPAY ==
[2020-03-02] MEDS ORDERED: IPRATROPIUM/ALBUTEROL 0.5-2.5 MG/3 ML AMPUL NEB ONE (09:37)
[2020-03-02] MEDS ORDERED: PREDNISONE 20 MG TABLET PO ONE (09:37)
--- NOTE | 2020-03-02 09:37 | ER Document Report ---
ED Respiratory Problem - General Chief Complaint: Shortness Of Breath Stated Complaint: SHORT OF BREATH,CHEST PAIN Time Seen by Provider: 03/02/20 09:18 Primary Care Provider: MAXIMUS CINTRON MD [Primary Care Provider] - Follow up as needed Mode of Arrival: Ambulatory Information source: Patient Notes: 34-year-old female with history of asthma presents the emergency department chief complaint of possible asthma exacerbation. Patient reports since yesterday she has had increased wheezing. She states she is allergic to pet dander, she has been staying at her sister's house who has dogs. Patient denies any fever, chills, nausea, vomiting or diarrhea. She has no concern for Covid. TRAVEL OUTSIDE OF THE [place] IN LAST 30 DAYS: No - Related Data Allergies/Adverse Reactions: No Known Allergies Allergy (Verified 03/02/20 08:31) Home Medications: inhaler. flonase. zyrtec Past Medical History - General Information source: Patient - Social History Smoking Status: Current Every Day Smoker Chew tobacco use (# tins/day): No Frequency of alcohol use: None Drug Abuse: None Family History: DM, Hyperlipidemia, Hypertension, Malignancy Patient has homicidal ideation: No Pulmonary Medical History: Reports: Hx Asthma, Hx Bronchitis, Hx Pneumonia Renal/ Medical History: Reports: Hx Ovarian Cysts. Denies: Hx Peritoneal Dialysis GI Medical History: Reports: Hx Gastroesophageal Reflux Disease Psychiatric Medical History: Reports: Hx Anxiety, Hx Depression - Immunizations Immunizations up to date: Yes Hx Diphtheria, Pertussis, Tetanus Vaccination: Yes Review of Systems - Review of Systems Respiratory: Wheezing -: Yes All other systems reviewed and negative Physical Exam - Vital signs Vitals: Pulse Resp BP Pulse Ox 75 18 146/77 H 100 03/02/20 08:19 03/02/20 08:19 03/02/20 08:19 03/02/20 08:19 - Notes Notes: PHYSICAL EXAMINATION: GENERAL: Well-appearing, well-nourished and in no acute distress. HEAD: Atraumatic, normocephalic. EYES: Pupils equal round and reactive to light, extraocular movements intact, conjunctiva are normal. ENT: Nares patent, oropharynx clear without exudates. Moist mucous membranes. NECK: Normal range of motion, supple without lymphadenopathy LUNGS: Mild to moderate expiratory wheezes noted bilaterally. HEART: Regular rate and rhythm without murmurs ABDOMEN: Soft, nontender, nondistended abdomen. No guarding, no rebound. No masses appreciated. Female : deferred Musculoskeletal: Normal range of motion, no pitting or edema. No cyanosis. NEUROLOGICAL: Cranial nerves grossly intact. Normal speech, normal gait. Normal sensory, motor exams PSYCH: Normal mood, normal affect. SKIN: Warm, Dry, normal turgor, no rashes or lesions noted. Course - Re-evaluation Re-evalutation: Patient's wheezing cleared with DuoNeb treatment. She was also given oral prednisone. Patient reports she feels much improved. She will be discharged home at this time. - Vital Signs Vital signs: Temp Pulse Resp BP Pulse Ox 97.6 F 80 18 140/74 H 99 03/02/20 10:33 03/02/20 10:33 03/02/20 10:33 03/02/20 10:33 03/02/20 10:33 Discharge - Discharge Clinical Impression: Asthma exacerbation Qualifiers: Asthma severity: moderate Asthma persistence: unspecified Qualified Code(s): J45.901 - Unspecified asthma with (acute) exacerbation Condition: Stable Disposition: HOME, SELF-CARE Additional Instructions: Asthma exacerbation discharge you were seen for an asthma exacerbation. Your symptoms improved with treatment here in the emergency department. However, it is very important that you return to the emergency department immediately if you began to have worsening difficulty breathing that does not respond to your normal home nebulizers. You are also being sent home on a five-day course of steroids that you should start taking tomorrow. Please also follow closely with your primary care physician. you should also return to emergency department if you develop fever greater than 101, persistent cough, persistent vomiting, pass out, or any other symptoms that are concerning to you. Prescriptions: Nebulizer [Compact Compressor Nebulizer] 1 each MC ASDIR PRN #1 each PRN Reason: Prednisone [Deltasone 20 mg Tablet] 3 tab PO DAILY 4 Days #12 tablet Ipratropium/Albuterol Sulfate [Duoneb 3 ml Ampul] 3 ml NEB [id number] PRN #30 vial.neb PRN Reason: Forms: Return to Work Referrals: MAXIMUS CINTRON MD [Primary Care Provider] - Follow up as needed
[2020-03-02 10:34] VITALS: BP 140/74
== END 2020-03-02 10:28 | disposition home or self-care (01) ==
LOC: ER 08:14
DX: J45.901 Unspecified asthma with (acute) exacerbation (principal); F17.200 Nicotine dependence, unspecified, uncomplicated; Z79.899 Other long term (current) drug therapy; Z91.048 Other nonmedicinal substance allergy status
CPT/HCPCS: 94640; 99283; J7512

== ENCOUNTER 2020-03-14 04:36 | Emergency (ER) | payer SELFPAY ==
[2020-03-14 05:01] VITALS: BP 121/77
--- NOTE | 2020-03-14 18:52 | EKG REPORT ---
SEVERITY:- NORMAL ECG - SINUS RHYTHM : Confirmed by: Ann Marie Tinajero 14-Mar-2020 18:51:24
== END 2020-03-14 07:30 | disposition left against medical advice (07) ==
LOC: ER 04:36
DX: Z53.21 Procedure and treatment not carried out due to patient leaving prior to being seen by health care provider (principal); R07.9 Chest pain, unspecified
CPT/HCPCS: 93005; 93010

== ENCOUNTER 2020-04-29 02:20 | Emergency (ER) | payer SELFPAY ==
--- NOTE | 2020-04-29 02:54 | ER Document Report ---
ED Respiratory Problem - General Chief Complaint: Shortness Of Breath Stated Complaint: TROUBLE BREATHING Time Seen by Provider: 04/29/20 02:39 Primary Care Provider: MAXIMUS CINTRON MD [Primary Care Provider] - Follow up as needed Mode of Arrival: Ambulatory Information source: Patient Notes: 34-year-old female presented to ED for complaint of cough and short of breath. She states she was diagnosed with an exacerbation Bashan of asthma about a week ago and given 5 days of prednisone. She states she was okay for couple days but now she is short of breath again. Her lungs are clear to asked contagion. She is speaking in full sentences. There is no wheezes no crackles no rhonchi in her lungs. She does have minimal postnasal drip. She states she does have a runny nose and congestion. I have sent a flu and Covid test done a chest x-ray will send her home if these are negative. Constitutional: Negative for fever. HENT: Negative for sore throat. Eyes: Negative for visual changes. Cardiovascular: Negative for chest pain. Respiratory: Negative for shortness of breath. Gastrointestinal: Negative for abdominal pain, vomiting or diarrhea. Genitourinary: Negative for dysuria. Musculoskeletal: Negative for back pain. Skin: Negative for rash. Neurological: Negative for headaches, weakness or numbness. 10 point ROS negative except as marked above and in HPI. VITAL SIGNS: Within normal limits. GENERAL: No acute distress, non-toxic appearance. HEAD: Normal with no signs of head trauma. EYES: PERRLA, EOMI, conjunctiva normal, no discharge. EARS: Hearing grossly intact. NOSE: Normal. THROAT: Oropharynx is normal. NECK: Normal range of motion, no tenderness, supple, no lymphadenopathy, No adenopathy, no JVD. CHEST: Clear breath sounds bilaterally. No wheezes, rales, or rhonchi. CARDIAC: Regular rate and rhythm. S1 and S2, without murmurs, gallops, or rubs. VASCULAR: No Edema. Peripheral pulses normal and equal in all extremities. ABDOMEN: Normal and soft with no tenderness, no masses or pulsatile masses. GASTROINTESTINAL: Bowel sounds normal GENITOURINARY: Normal, No tenderness LYMPATHTIC: No lymphadenopathy noted. MUSCULOSKELETAL: Good range of motion of all major joints. Extremities without clubbing, cyanosis or edema. NEUROLOGICAL: Alert and oriented x 3. No focal sensory or strength deficits. Speech normal. Follows commands appropriately. PSYCHIATRIC: Normal Affect, judgement and mood. SKIN: Normal appearance with no rashes or lesions. TRAVEL OUTSIDE OF THE [place] IN LAST 30 DAYS: No - HPI Patient complains to provider of: Cough Onset: Last week Duration: Intermittent episodes Initiating Event: URI Quality of pain: Other - Rib pain from coughing Severity: Moderate Pain Level: 3 Context: Hx asthma, Smoker Short of Breath: Mild Cough: Nonproductive Sputum amount: None At home treatment: Bronchodilators, Oral steroids, Singulair Associated symptoms: Congestion, Cough, PND, Runny nose Similar symptoms previously: Yes Recently seen / treated by doctor: Yes - Related Data Allergies/Adverse Reactions: No Known Allergies Allergy (Verified 03/14/20 05:01) Home Medications: singular, albuterol, nebs Past Medical History - General Information source: Patient - Social History Smoking Status: Current Some Day Smoker - States she has not been smoking much for the last week Frequency of alcohol use: None Drug Abuse: None Lives with: Spouse/Significant other Family History: DM, Hyperlipidemia, Hypertension, Malignancy Patient has homicidal ideation: No Pulmonary Medical History: Reports: Hx Asthma, Hx Bronchitis, Hx Pneumonia EENT Medical History: Reports: None Neurological Medical History: Reports: None Endocrine Medical History: Reports: None Renal/ Medical History: Reports: Hx Ovarian Cysts Malignancy Medical History: Reports: None GI Medical History: Reports: Hx Gastroesophageal Reflux Disease Musculoskeletal Medical History: Reports None Skin Medical History: Reports None Psychiatric Medical History: Reports: Hx Anxiety, Hx Depression Traumatic Medical History: Reports: None Infectious Medical History: Reports: None Surgical Hx: Negative Past Surgical History: Reports: None - Immunizations Immunizations up to date: Yes Hx Diphtheria, Pertussis, Tetanus Vaccination: Yes Physical Exam - Vital signs Vitals: Temp Pulse Resp BP Pulse Ox 98.3 F 85 18 146/75 H 100 04/29/20 02:28 04/29/20 02:28 04/29/20 02:28 04/29/20 02:28 04/29/20 02:28 Course - Vital Signs Vital signs: Temp Pulse Resp BP Pulse Ox 98.0 F 85 20 110/76 100 04/29/20 05:09 04/29/20 02:28 04/29/20 04:17 04/29/20 04:17 04/29/20 04:17 - Laboratory Results Critical Laboratory Results Reviewed: No Critical Results - Radiology Results Critical Radiology Results Reviewed: No Critical Results Discharge - Discharge Clinical Impression: Cough URI (upper respiratory infection) Qualifiers: URI type: unspecified URI Qualified Code(s): J06.9 - Acute upper respiratory infection, unspecified Condition: Stable Disposition: HOME, SELF-CARE Instructions: COVID-19 Guidance for Persons Under Investigation Additional Instructions: UPPER RESPIRATORY ILLNESS: You have a viral infection of the respiratory passages -- a "cold." This common infection causes nasal congestion, drainage, and often sore throat and cough. It is highly contagious. The disease usually lasts about 10 to 14 days. There is no "cure" for the viral infection -- it must run its course. If there is a complication, such as bacterial infection in the nose, sinuses, middle ear, or bronchial tubes, antibiotics may be required. The antibiotics won't affect the virus. Drink plenty of fluids. A humidifier may help. An expectorant medication or decongestant may make you more comfortable. Use acetaminophen or ibuprofen for fever or aches. See the doctor if fever persists over two days, if there is any significant worsening of your symptoms, or if you simply fail to improve as expected. You could use Claritin or Zyrtec for your cold symptoms. You could also use Flonase which is [id number] 1 spray each nostril twice a day. You could also use salt soda solution gargles. These will help to remove the drainage from the back your throat. Chloraseptic spray was [id number] that will also help with your sore throat. Salt and soda solution gargle 1 quart of water 1 tablespoon of salt 1 teaspoon of baking soda Mixed 3 ingredients together and boil for 1 minute Placed in a covered quart jar Use 1/2 ounce of cold solution to gargle 3 times a day USE OF ACETAMINOPHEN (Tylenol): Acetaminophen may be taken for pain relief or fever control. It's much safer than aspirin, offering a wider range of "safe" dosages. It is safe during . Some brand names are Tylenol, Panadol, Datril, Anacin 3, Tempra, and Liquiprin. Acetaminophen can be repeated every four hours. The following are maximum recommended dosages: >89 pounds or adults 650 mg to 900 mg Acetaminophen can be repeated every four hours. Maximum dose not to exceed 4000 mg a day. Continue usual asthma medications as prescribed and your Singulair. At this time your lungs are clear to auscultation. SMOKING: If you smoke, you should stop smoking. The tar and chemicals in cigarette smoke are harmful. Smoking has been shown to cause: emphysema chronic bronchitis lung cancer mouth and throat cancer stomach and pancreas cancer premature aging defects In addition, smoking increases ear and lung infections in children of smokers. Patient was provided with discharge information including: As a person under investigation for Covid 19, the [facility] of Health and Human Services, division of public health advises you to adhere to the following guidance until your test results are reported to you. If your test result is positive, you will receive additional information from your provider and your local health department at that time. Remain at home until you are cleared by the health provider or public health authorities. Keep a log of visitors to your home, notify any visitors to your home of your isolation status. If you plan to move to a new address or leave the county, notify the local health department in your County. Call your doctor or seek care if you have an urgent medical need. Before seeking medical care, call ahead to get instructions from the provider before arriving at the medical office clinic or hospital. Notify them that you are being tested for the virus that causes Covid 19 so that arrangements can be made, as necessary, to prevent transmission to others in the healthcare setting. Next, notify the local health department in your county. If a medical emergency arises and you need to call 911, inform the first responders that you are being tested for the virus that causes Covid 19. Next, notify the local health department in your county. Forms: Smoking Cessation Education Referrals: MAXIMUS CINTRON MD [Primary Care Provider] - Follow up as needed
[2020-04-29 04:01] LABS: A TYPE INFLUENZA AG NEGATIVE (NEGATIVE); B INFLUENZA AG NEGATIVE (NEGATIVE)
--- NOTE | 2020-04-29 04:12 | RADIOLOGY REPORT (SQ) ---
CLINICAL HISTORY: cough and congestion COMPARISON: 01/21/2020. TECHNIQUE: XR CHEST 1 VIEW 04/29/2020 2:53 AM [employer] FINDINGS: Cardiac silhouette is normal in size. Lungs are clear without consolidation, atelectasis, mass or edema. There is no pleural effusion. There is no pneumothorax. There are no acute osseous findings. IMPRESSION: Clear lungs.
[2020-04-29 04:55] VITALS: BP 110/76
--- OUTSIDE RECORDS SUMMARY | 2020-05-01 10:39 | XMS REPORT ---
:1985 [facility] [address] [place] [address] Care Team Providers Name Role Phone Romero Attending Clinician Unavailable Nicanor Attending Clinician Unavailable Daniel Attending Clinician Unavailable Allergies, Adverse Reactions, Alerts This patient has no known allergies or adverse reactions. Medications This patient has no known medications. Problems This patient has no known problems. Procedures Procedure Date / Time Performed Performing Clinician Devic e OFFICE OUTPATIENT VISIT 15 MINUTES 2017-04-23 09:38:00 OFFICE OUTPATIENT VISIT 15 MINUTES 2016-04-14 15:28:00 OFFICE OUTPATIENT VISIT 15 MINUTES 2015-06-01 11:45:00 Results Test Description Test Time Test Comments Text Results Atomic Results Result Comments Influenza A+B Ag, EIA DONE IN CLINIC (42509) 2017-04-23 00:00:0 0 Test Item Value Reference Range Comments [facility] Influenza A+B Ag, EIA DONE IN CLINIC (test code = 48070-2) Negative Assessments Condition Name Status Diagnosis Date Treating Clinici an Cough Active Flu-like symptoms Active Encounter for health education Active Adult body mass index 39.0-39.9 Active Sinusitis Active Sinusitis Active Bronchitis, acute Active Bronchitis, acute Active Bronchitis, acute Active Adult body mass index 39.0-39.9 Active Adult body mass index 39.0-39.9 Active Thyromegaly Active Nausea and vomiting Active Female hirsutism Active Nausea and vomiting Active Female hirsutism Active Thyromegaly Active Nausea and vomiting Active Female hirsutism Active Thyromegaly Active Abdominal pain Active Encounter for health education Active Abdominal pain Active Encounter for health education Active Abdominal pain Active Body mass index (BMI) of 40.0-44.9 in adult Active Body mass index (BMI) of 40.0-44.9 in adult Active Body mass index (BMI) of 40.0-44.9 in adult Active Bronchitis Active Wheezing on auscultation Active Bronchitis Active Wheezing on auscultation Active Bronchitis Active Wheezing on auscultation Active Pharyngitis Active Pharyngitis Active Pharyngitis Active Encounters Start End Encounter Admission Attending Care Care Encounter Date/Time Date/Time Type Type Clinicians Facility Department ID 2017-04-23 2017-04-23 [id number] 09:38:00 09:38:00 [facility] 2016-04-14 2016[facility]04[facility]14 [id number] 15:28:00 [facility] 2015-06-01 2015-06-01 [id number] 11:45:00 11:45:00 [facility] Social History This patient has no known social history. Vital Signs This patient has no known vital signs.
== END 2020-04-29 05:09 | disposition home or self-care (01) ==
LOC: ER 02:20
DX: J06.9 Acute upper respiratory infection, unspecified (principal); R05 Cough; R06.02 Shortness of breath; R09.82 Postnasal drip; R09.81 Nasal congestion; R09.89 Other specified symptoms and signs involving the circulatory and respiratory systems; R07.81 Pleurodynia; J45.909 Unspecified asthma, uncomplicated; Z20.828 Contact with and (suspected) exposure to other viral communicable diseases; Z79.899 Other long term (current) drug therapy; F17.200 Nicotine dependence, unspecified, uncomplicated
CPT/HCPCS: 99284; 36415; 87635; 87804; 71045; C9803